=== PATIENT | male | born 1960 | race Caucasian/White ===

== ENCOUNTER 2017-06-03 21:13 | Emergency (ER) | payer OTHER ==
[2016-05-07 15:40] VITALS: Ht 185.4 cm; Wt 114.9 kg
[~2017-06-03] VITALS: Ht 185.4 cm; Wt 114.9 kg
[~2017-06-03 21:13] MED LIST: AMOX500T10 PO; CLAR-1 PO; IRON1TAB34 PO; PANT40TA65 PO; SUCR1TAB51 PO; SUCR1TAB85 PO
[2017-06-03 21:21] VITALS: BP 156/100
[2017-06-03] MEDS ORDERED: FAMO20TA28 PO (21:21)
--- NOTE | 2017-06-03 21:32 | ER Report ---
History and Physical Time Seen By MD: 21:27 Hx. of Stated Complaint: CHEST PAIN, MIDDLE CHEST, UPPER ABDOMINAL PAIN SINCE 1700. HX BLEEDING STOMACH ULCERS HPI/ROS CHIEF COMPLAINT: Chest pain, epigastric pain HISTORY OF PRESENT ILLNESS: 57-year-old male with a history of GERD and recent endoscopy. Patient developed sharp intermittent crampy chest pains in his epigastrium radiating to his chest. She denies nausea, diaphoresis or shortness of breath. Patient denies cardiac history. Patient notes no recent illness. He denies alcohol, caffeine or spicy food. Patient notes no alleviating or exacerbating factors. Patient's been taking some NSAIDs for sprain knee from skiing over the last 3 weeks. Patient was admitted back in early March with a upper GI bleed. He was found to have 2 large gastric ulcers. On endoscopy. REVIEW OF SYSTEMS: Respiratory: No cough, no dyspnea. Cardiovascular: No chest pain, no palpitations. Gastrointestinal: As above Musculoskeletal: No back pain. Allergies: Coded Allergies: No Known Drug Allergies (Unverified , 06/03/17) Home Meds Active Scripts Tramadol Hcl (TRAMADOL HCL) 50 Mg Tablet, 1 TAB PO Q6H Y for PAIN, #20 MG TAKE ONE TO TWO TABLETS BY MOUTH EVERY FOUR TO SIX HOURS NEEDED Prov:DOLLY RICO DO 06/03/17 Reported Medications Famotidine (PEPCID) 20 Mg Tablet, 20 MG PO QDAY, #10 TAB 06/03/17 Discontinued Reported Medications Iron Ag,Ps/C/Fa6/B12/Zn/SA/Sto (Niferex Tablet) 150MG-60-1 Tablet, 150 MCG PO BID, #60 0 Refills 03/31/17 Discontinued Scripts Sucralfate (CARAFATE) 1 Gm Tablet, 1 GM PO QID, #30 TAB Prov:STORM COATES MD 03/31/17 Pantoprazole Sodium (PANTOPRAZOLE SODIUM) 40 Mg Tablet.dr, 40 MG PO QDAY, #60 TAB.SR 5 Refills Prov:STORM COATES MD 03/31/17 Reviewed Nurses Notes: Yes Old Medical Records Reviewed: Yes Hx Smoking: No Smoking Status: Never Smoker Exposure to Second Hand Smoke?: No Hx Substance Use Disorder: No Hx Alcohol Use: Yes (OCC) Constitutional Vital Sign - Last 24 Hours 06/03/17 21:21 Pulse 97 Resp 20 B/P (MAP) 156/100 Pulse Ox 94 O2 Delivery Room Air Physical Exam Vital signs stable, afebrile, pulse ox normal General Appearance: The patient is alert, has no immediate need for airway protection and no current signs of toxicity. Mild distress, anxious-appearing HEENT: Pupils equal and round no injection. Oropharynx without redness or exudate, mucous members are Respiratory: Chest is non tender, lungs are clear to auscultation. No chest wall tenderness Cardiac: regular rate and rhythm Gastrointestinal: Abdomen is soft and non tender, no masses, bowel sounds normal. Musculoskeletal: Neck: Neck is supple and non tender. Extremities have full range of motion and are non tender. Skin: No rashes or lesions. DIFFERENTIAL DIAGNOSIS: After history and physical exam differential diagnosis was considered for abdominal pain including but not limited to appendicitis, cholecystitis, gastritis and urinary tract infection. Additionally,chest pain including but not limited to myocardial ischemia, pericarditis pulmonary embolus , chest wall pain, pleural inflammation and pulmonary infectious causes. Medical Decision Making Data Points Result Diagram: 06/03/17213406/03/172134 Laboratory Hematology Test 06/03/17 21:35 06/03/17 22:05 Red Blood Count 5.37 M/uL (4.00-5.60) Mean Corpuscular Volume 74.0 fL (80.0-96.0) Mean Corpuscular Hemoglobin 23.7 pg (26.0-33.0) Mean Corpuscular Hemoglobin Concent 32.0 g/dL (32.0-36.0) Red Cell Distribution Width 24.9 % (11.5-14.5) Mean Platelet Volume 9.1 fL (7.2-11.1) Neutrophils (%) (Auto) 79.2 % (39.4-72.5) Lymphocytes (%) (Auto) 11.9 % (17.6-49.6) Monocytes (%) (Auto) 6.3 % (4.1-12.4) Eosinophils (%) (Auto) 1.6 % (0.4-6.7) Basophils (%) (Auto) 1.0 % (0.3-1.4) Nucleated RBC Relative Count (auto) 0.0 /100WBC Neutrophils # (Auto) 11.1 K/uL (2.0-7.4) Lymphocytes # (Auto) 1.7 K/uL (1.3-3.6) Monocytes # (Auto) 0.9 K/uL (0.3-1.0) Eosinophils # (Auto) 0.2 K/uL (0.0-0.5) Basophils # (Auto) 0.1 K/uL (0.0-0.1) Nucleated RBC Absolute Count (auto) 0.00 K/uL Peripheral Blood Smear Yes Y/N Prothrombin Time 12.8 seconds (12.0-14.4) Prothromb Time International Ratio 0.96 Activated Partial Thromboplast Time 30 seconds (23-35) Sodium Level 140 mmol/L (137-145) Potassium Level 4.0 mmol/L (3.5-5.0) Chloride Level 106 mmol/L (98-107) Carbon Dioxide Level 23 mmol/L (22-30) Blood Urea Nitrogen 16 mg/dl (9-21) Creatinine 1.10 mg/dl (0.66-1.25) Glomerular Filtration Rate Calc > 60.0 Random Glucose 90 mg/dl (75-110) Calcium Level 8.7 mg/dl (8.4-10.2) Total Bilirubin 0.3 mg/dl (0.2-1.3) Aspartate Amino Transf (AST/SGOT) 21 U/L (0-35) Alanine Aminotransferase (ALT/SGPT) 28 U/L (0-56) Alkaline Phosphatase 88 U/L (0-126) Troponin I < 0.012 ng/ml C-Reactive Protein 2.7 mg/dl (<1.0) Total Protein 7.2 gm/dl (6.3-8.2) Albumin 3.9 g/dl (3.5-5.0) Amylase Level 112 U/L (0-110) Lipase 125 U/L (23-300) Urine Color Straw Urine Clarity Clear Urine pH 7.0 pH (4.8-9.5) Urine Specific [place] 1.011 Urine Protein Negative mg/dL (NEGATIVE) Urine Glucose (UA) Negative mg/dL (NEGATIVE) Urine Ketones Negative mg/dL (NEGATIVE) Urine Blood Negative (NEGATIVE) Urine Nitrite Negative (NEGATIVE) Urine Bilirubin Negative (NEGATIVE) Urine Urobilinogen Negative mg/dL (0.2-1.9) Urine Leukocyte Esterase Negative (NEGATIVE) Urine RBC None /HPF (0-2/HPF) Urine WBC <1 /HPF (0-5/HPF) Urine Squamous Epithelial Cells None /LPF (</=FEW) Urine Bacteria Negative /HPF (NONE-FEW) Urine Mucus None /HPF (NONE-FEW) Chemistry Test 06/03/17 21:35 06/03/17 22:05 White Blood Count 14.0 k/uL (4.5-11.0) Red Blood Count 5.37 M/uL (4.00-5.60) Hemoglobin 12.7 g/dL (14.0-18.0) Hematocrit 39.8 % (42.0-52.0) Mean Corpuscular Volume 74.0 fL (80.0-96.0) Mean Corpuscular Hemoglobin 23.7 pg (26.0-33.0) Mean Corpuscular Hemoglobin Concent 32.0 g/dL (32.0-36.0) Red Cell Distribution Width 24.9 % (11.5-14.5) Platelet Count 290 K/uL (150-450) Mean Platelet Volume 9.1 fL (7.2-11.1) Neutrophils (%) (Auto) 79.2 % (39.4-72.5) Lymphocytes (%) (Auto) 11.9 % (17.6-49.6) Monocytes (%) (Auto) 6.3 % (4.1-12.4) Eosinophils (%) (Auto) 1.6 % (0.4-6.7) Basophils (%) (Auto) 1.0 % (0.3-1.4) Nucleated RBC Relative Count (auto) 0.0 /100WBC Neutrophils # (Auto) 11.1 K/uL (2.0-7.4) Lymphocytes # (Auto) 1.7 K/uL (1.3-3.6) Monocytes # (Auto) 0.9 K/uL (0.3-1.0) Eosinophils # (Auto) 0.2 K/uL (0.0-0.5) Basophils # (Auto) 0.1 K/uL (0.0-0.1) Nucleated RBC Absolute Count (auto) 0.00 K/uL Peripheral Blood Smear Yes Y/N Prothrombin Time 12.8 seconds (12.0-14.4) Prothromb Time International Ratio 0.96 Activated Partial Thromboplast Time 30 seconds (23-35) Glomerular Filtration Rate Calc > 60.0 Calcium Level 8.7 mg/dl (8.4-10.2) Total Bilirubin 0.3 mg/dl (0.2-1.3) Aspartate Amino Transf (AST/SGOT) 21 U/L (0-35) Alanine Aminotransferase (ALT/SGPT) 28 U/L (0-56) Alkaline Phosphatase 88 U/L (0-126) Troponin I < 0.012 ng/ml C-Reactive Protein 2.7 mg/dl (<1.0) Total Protein 7.2 gm/dl (6.3-8.2) Albumin 3.9 g/dl (3.5-5.0) Amylase Level 112 U/L (0-110) Lipase 125 U/L (23-300) Urine Color Straw Urine Clarity Clear Urine pH 7.0 pH (4.8-9.5) Urine Specific [place] 1.011 Urine Protein Negative mg/dL (NEGATIVE) Urine Glucose (UA) Negative mg/dL (NEGATIVE) Urine Ketones Negative mg/dL (NEGATIVE) Urine Blood Negative (NEGATIVE) Urine Nitrite Negative (NEGATIVE) Urine Bilirubin Negative (NEGATIVE) Urine Urobilinogen Negative mg/dL (0.2-1.9) Urine Leukocyte Esterase Negative (NEGATIVE) Urine RBC None /HPF (0-2/HPF) Urine WBC <1 /HPF (0-5/HPF) Urine Squamous Epithelial Cells None /LPF (</=FEW) Urine Bacteria Negative /HPF (NONE-FEW) Urine Mucus None /HPF (NONE-FEW) Coagulation Test 06/03/17 21:35 Prothrombin Time 12.8 seconds Prothromb Time International Ratio 0.96 Activated Partial Thromboplast Time 30 seconds Urinalysis Test 06/03/17 22:05 Urine Color Straw Urine Clarity Clear Urine pH 7.0 pH (4.8-9.5) Urine Specific [place] 1.011 Urine Protein Negative mg/dL (NEGATIVE) Urine Glucose (UA) Negative mg/dL (NEGATIVE) Urine Ketones Negative mg/dL (NEGATIVE) Urine Blood Negative (NEGATIVE) Urine Nitrite Negative (NEGATIVE) Urine Bilirubin Negative (NEGATIVE) Urine Urobilinogen Negative mg/dL (0.2-1.9) Urine Leukocyte Esterase Negative (NEGATIVE) Urine RBC None /HPF (0-2/HPF) Urine WBC <1 /HPF (0-5/HPF) Urine Squamous Epithelial Cells None /LPF (</=FEW) Urine Bacteria Negative /HPF (NONE-FEW) Urine Mucus None /HPF (NONE-FEW) EKG/Imaging EKG Interpretation 12 lead EK Rhythm: normal sinus rhythm [place]: normal QRS: normal ST segments: normal, no evidence of ischemia or dysrhythmia, left anterior fascicular block noted Imaging X-ray: Two-view chest x-ray was obtained. I viewed the images myself on the PACS system. My interpretation of the images is: No infiltrate, no effusion, normal mediastinum. The radiologist interpretation had no clinically significant variation from this interpretation. ED Course/Re-evaluation ED Course Patient was admitted to an examination room. H&P was done. The differential diagnoses was considered. On clinical examination. Patient's had symptoms for several hours. EKG is performed. On arrival unremarkable. Diagnostic studies are sent off. Patient's treated with a GI cocktail. He is offered stronger pain medication but declined. His troponin is unremarkable. Patient works some improvement in the GI cocktail. He is advised to resume taking Pepcid 20 mg by mouth twice a day. Patient states with a proton pump inhibitor that was prescribed. He developed mouth sores. Patient referred to Dr. Toshia ORTIZ. Information was provided for him to follow-up. Patient's also advised to follow -up with his primary care or Dr. Coates who performed his endoscopy. Patient was given a prescription for tramadol for pain relief. Decision to Disposition Date: Jun 03, 2017 Decision to Disposition Time: 22:20 Depart Departure Latest Vital Signs Vital Signs Date Time Temp Pulse Resp B/P (MAP) Pulse Ox O2 Delivery O2 Flow Rate FiO2 06/03/17 21:21 97 20 156/100 94 Room Air Impression: Primary Impression: Epigastric pain Additional Impression: History of stomach ulcers Condition: Improved Disposition: HOME OR SELF-CARE Referrals: ELIZABETH PÉREZ MD, FARRUKH MD New Scripts Tramadol Hcl (TRAMADOL HCL) 50 Mg Tablet 1 TAB PO Q6H Y for PAIN, #20 MG TAKE ONE TO TWO TABLETS BY MOUTH EVERY FOUR TO SIX HOURS NEEDED Prov: DOLLY RICO DO 06/03/17 Patient Instructions: Epigastric Pain (ED) Additional Instructions: Continue Pepcid 20 mg twice daily until follow-up Follow-up with Dr. Pope GI specialist information was provided for his clinic in [facility] Problem Qualifiers DOLLY RICO DO Jun 03, 2017 21:32
[2017-06-03] MEDS ORDERED: LIDOCAINE 2% VISC SLN 15ML UDC PO ONE (21:35)
[2017-06-03] MEDS ORDERED: MAG HYD/AL HYD/SIMETH 30ML UDC PO ONE (21:35)
--- NOTE | 2017-06-03 21:35 | EKG ---
[place] [facility] [place]IENT NAME: DOMINICK ARIZMENDI : [id number] MR: [id number] V: [id number] EXAM DATE: ORDERING PHYSICIAN: ODLLY RICO TECHNOLOGIST: AMAN Kidd Reason : CARDIAC Blood Pressure : / mmHG Vent. Rate : 098 BPM Atrial Rate : 098 BPM P-R Int : 162 ms QRS Dur : 084 ms QT Int : 340 ms P-R-T Axes : 040 -48 051 degrees QTc Int : 434 ms Normal sinus rhythm R wave progression consistent with old ant/sep DE vs lead placement When compared with ECG of 13-JUL-2016 00:30, Now with poor R wave progression Confirmed by BEKA MCBRIDE ([id number]) on 06/03/2017 11:10:29 PM Referred By: Confirmed By:BEKA MCBRIDE
[2017-06-03 21:46] LABS: PLATELET COUNT, AUTOMATED 290 K/uL (150-450)
[2017-06-03 21:58] LABS: INR 0.96
[2017-06-03] MEDS ORDERED: traMADol 50 MG TAB TH 2 TAB/BOTTLE PO ONE (22:20)
[2017-06-03] MEDS ORDERED: TRAM-420 PO (22:23)
== END 2017-06-03 22:57 | disposition home or self-care (01) ==
LOC: ER 21:31
DX: R10.13 Epigastric pain (principal); Z87.11 Personal history of peptic ulcer disease
CPT/HCPCS: 81001; 82040; 82150; 82247; 82310; 82374; 82435; 82565; 82947; 83690; 84075; 84132; 84155; 84295; 84450; 84460; 84484; 84520; 85025; 85610; 85730; 86140; 93005; 99282

== ENCOUNTER → 2017-07-17 | Outpatient (CLI) | payer OTHER ==
[2016-05-07 15:40] VITALS: BMI 36.3
[~2017-07-17] MED LIST changes: +FAMO20TA28 PO; +TRAM-420 PO
[2017-07-17 16:34] LABS: PLATELET COUNT, AUTOMATED 331 K/uL (150-450)
== END ==
LOC: LAB 16:16
PROVIDERS: ATTEND Nurse Practitioner Family
DX: R10.13 Epigastric pain (principal); K25.4 Chronic or unspecified gastric ulcer with hemorrhage
CPT/HCPCS: 36415; 82040; 82247; 82310; 82374; 82435; 82565; 82941; 82947; 84075; 84132; 84155; 84295; 84450; 84460; 84520; 85025

== ENCOUNTER 2017-07-27 18:37 | Emergency (ER) | payer OTHER ==
[2016-05-07 15:40] VITALS: Wt 108.9 kg
[~2017-07-27 18:37] MED LIST changes: +DEXL30CA5 PO
--- NOTE | 2017-07-27 18:40 | ER Report ---
History and Physical Time Seen By MD: 18:38 Hx. of Stated Complaint: Palpitations (LIANNA LUDWIG) HPI/ROS Patient is a 57-year-old male history of atrial fibrillation and is currently on no medications for this is not on any oral anticoagulation and started having palpitations yesterday and did take a full aspirin this morning states some chest pressure with this in the last hour Remainder of the 14 system rev: Yes (LIANNA LUDWIG) Allergies: Coded Allergies: pantoprazole (Verified Allergy, Severe, oral swelling, 07/27/17) Home Meds Active Scripts Diltiazem Hcl (CARDIZEM CD) 240 Mg Cap.er.24h, 240 MG PO DAILY, #30 Prov:LIANNA LUDWIG 07/27/17 Reported Medications Dexlansoprazole (DEXILANT) 30 Mg Cap.mp, 30 MG PO QDAY 07/24/17 Discontinued Reported Medications Famotidine (PEPCID) 20 Mg Tablet, 20 MG PO QDAY, #10 TAB 06/03/17 Discontinued Scripts Tramadol Hcl (TRAMADOL HCL) 50 Mg Tablet, 1 TAB PO Q6H Y for PAIN, #20 MG TAKE ONE TO TWO TABLETS BY MOUTH EVERY FOUR TO SIX HOURS NEEDED Prov:DOLLY RICO DO 06/03/17 Past Medical/Surgical History History of A. fib, history of ulcers, history of kidney stones, (LIANNA LUDWIG) Reviewed Nurses Notes: Yes Old Medical Records Reviewed: Yes (LIANNA LUDWIG) Hx Smoking: No Smoking Status: Never Smoker Exposure to Second Hand Smoke?: No Hx Substance Use Disorder: No Hx Alcohol Use: Yes (OCC) (LIANNA LUDWIG) Family History of: HTN (LIANNA LUDWIG) Constitutional Vital Sign - Last 24 Hours 07/27/17 07/27/17 07/27/17 07/27/17 18:42 18:43 18:44 18:52 Temp 97.5 Pulse 158 109 Resp 15 29 B/P (MAP) 130/71 (90) 138/105 (116) 138/105 Pulse Ox 97 97 O2 Delivery Room Air 07/27/17 07/27/17 07/27/17 07/27/17 19:00 19:07 19:22 19:30 Pulse 89 92 Resp 16 17 B/P (MAP) 127/84 (98) 115/81 (92) Pulse Ox 96 94 07/27/17 07/27/17 07/27/17 07/27/17 19:37 19:52 20:00 20:07 Pulse 94 95 99 Resp 18 15 11 B/P (MAP) 128/79 (95) Pulse Ox 93 93 92 07/27/17 07/27/17 07/27/17 07/27/17 20:22 20:30 20:35 20:50 Pulse 96 89 88 Resp 29 13 20 B/P (MAP) 122/77 (92) Pulse Ox 94 98 95 07/27/17 07/27/17 07/27/17 07/27/17 21:00 21:05 21:20 21:30 Pulse 86 93 Resp 22 15 B/P (MAP) 134/92 (106) 139/92 (108) Pulse Ox 95 94 07/27/17 07/27/17 07/27/17 07/27/17 21:35 21:50 22:00 22:05 Pulse 89 90 91 Resp 15 17 13 B/P (MAP) 135/84 (101) Pulse Ox 94 94 96 07/27/17 07/27/17 07/27/17 07/27/17 22:20 22:30 22:35 22:50 Pulse 89 88 90 Resp 15 16 16 B/P (MAP) 132/89 (103) Pulse Ox 92 94 94 07/27/17 07/27/17 23:00 23:05 Pulse 87 Resp 15 B/P (MAP) 118/85 (96) Pulse Ox 94 (JOANNA ISBELL MD) Physical Exam CHIEF COMPLAINT: Palpitations HISTORY OF PRESENT ILLNESS: pt is a 57 year old male alert anxious fast heart rate palpitations since yesterday . mid sternal chest pressure x 1 hour REVIEW OF SYSTEMS: Constitutional: No fever, no chills. Eyes: No discharge. ENT: No sore throat. Cardiovascular: No chest pain, palpitations. Respiratory: No cough, no shortness of breath. Gastrointestinal: No abdominal pain, no vomiting. Genitourinary: No hematuria. Musculoskeletal: No back pain. Skin: No rashes. Neurological: No headache. (LIANNA LUDWIG) Medical Decision Making Data Points Result Diagram: 07/27/17184707/27/178 Laboratory Hematology Test 07/27/17 18:48 07/27/17 20:40 Red Blood Count 6.01 M/uL (4.00-5.60) Mean Corpuscular Volume 72.3 fL (80.0-96.0) Mean Corpuscular Hemoglobin 23.3 pg (26.0-33.0) Mean Corpuscular Hemoglobin Concent 32.3 g/dL (32.0-36.0) Red Cell Distribution Width 16.8 % (11.5-14.5) Mean Platelet Volume 8.8 fL (7.2-11.1) Neutrophils (%) (Auto) 65.6 % (39.4-72.5) Lymphocytes (%) (Auto) 23.8 % (17.6-49.6) Monocytes (%) (Auto) 8.5 % (4.1-12.4) Eosinophils (%) (Auto) 1.4 % (0.4-6.7) Basophils (%) (Auto) 0.7 % (0.3-1.4) Nucleated RBC Relative Count (auto) 0.1 /100WBC Neutrophils # (Auto) 8.9 K/uL (2.0-7.4) Lymphocytes # (Auto) 3.2 K/uL (1.3-3.6) Monocytes # (Auto) 1.2 K/uL (0.3-1.0) Eosinophils # (Auto) 0.2 K/uL (0.0-0.5) Basophils # (Auto) 0.1 K/uL (0.0-0.1) Nucleated RBC Absolute Count (auto) 0.01 K/uL Prothrombin Time 12.8 seconds (12.0-14.4) Prothromb Time International Ratio 0.97 Activated Partial Thromboplast Time 29 seconds (23-35) D-Dimer Quantitative (PE/DVT) < 0.27 ug/ml (0-0.50) Sodium Level 144 mmol/L (137-145) Potassium Level 4.1 mmol/L (3.5-5.0) Chloride Level 105 mmol/L (98-107) Carbon Dioxide Level 26 mmol/L (22-30) Blood Urea Nitrogen 14 mg/dl (9-21) Creatinine 1.10 mg/dl (0.66-1.25) Glomerular Filtration Rate Calc > 60.0 Random Glucose 97 mg/dl (75-110) Calcium Level 9.0 mg/dl (8.4-10.2) Total Bilirubin 0.4 mg/dl (0.2-1.3) Aspartate Amino Transf (AST/SGOT) 24 U/L (0-35) Alanine Aminotransferase (ALT/SGPT) 20 U/L (0-56) Alkaline Phosphatase 87 U/L (0-126) B-Type Natriuretic Peptide 549 pg/ml (0-100) Total Protein 7.4 gm/dl (6.3-8.2) Albumin 4.0 g/dl (3.5-5.0) Troponin I 0.053 ng/ml Chemistry Test 07/27/17 18:48 07/27/17 20:40 White Blood Count 13.6 k/uL (4.5-11.0) Red Blood Count 6.01 M/uL (4.00-5.60) Hemoglobin 14.0 g/dL (14.0-18.0) Hematocrit 43.4 % (42.0-52.0) Mean Corpuscular Volume 72.3 fL (80.0-96.0) Mean Corpuscular Hemoglobin 23.3 pg (26.0-33.0) Mean Corpuscular Hemoglobin Concent 32.3 g/dL (32.0-36.0) Red Cell Distribution Width 16.8 % (11.5-14.5) Platelet Count 358 K/uL (150-450) Mean Platelet Volume 8.8 fL (7.2-11.1) Neutrophils (%) (Auto) 65.6 % (39.4-72.5) Lymphocytes (%) (Auto) 23.8 % (17.6-49.6) Monocytes (%) (Auto) 8.5 % (4.1-12.4) Eosinophils (%) (Auto) 1.4 % (0.4-6.7) Basophils (%) (Auto) 0.7 % (0.3-1.4) Nucleated RBC Relative Count (auto) 0.1 /100WBC Neutrophils # (Auto) 8.9 K/uL (2.0-7.4) Lymphocytes # (Auto) 3.2 K/uL (1.3-3.6) Monocytes # (Auto) 1.2 K/uL (0.3-1.0) Eosinophils # (Auto) 0.2 K/uL (0.0-0.5) Basophils # (Auto) 0.1 K/uL (0.0-0.1) Nucleated RBC Absolute Count (auto) 0.01 K/uL Prothrombin Time 12.8 seconds (12.0-14.4) Prothromb Time International Ratio 0.97 Activated Partial Thromboplast Time 29 seconds (23-35) D-Dimer Quantitative (PE/DVT) < 0.27 ug/ml (0-0.50) Glomerular Filtration Rate Calc > 60.0 Calcium Level 9.0 mg/dl (8.4-10.2) Total Bilirubin 0.4 mg/dl (0.2-1.3) Aspartate Amino Transf (AST/SGOT) 24 U/L (0-35) Alanine Aminotransferase (ALT/SGPT) 20 U/L (0-56) Alkaline Phosphatase 87 U/L (0-126) B-Type Natriuretic Peptide 549 pg/ml (0-100) Total Protein 7.4 gm/dl (6.3-8.2) Albumin 4.0 g/dl (3.5-5.0) Troponin I 0.053 ng/ml Coagulation Test 07/27/17 18:48 Prothrombin Time 12.8 seconds Prothromb Time International Ratio 0.97 Activated Partial Thromboplast Time 29 seconds D-Dimer Quantitative (PE/DVT) < 0.27 ug/ml (JOANNA ISBELL MD) EKG/Imaging EKG Interpretation EKG at 1840 A. fib with RVR ventricular rate 160. 2nd EKG 1935 normal sinus rhythm with ventricular rate 95 QTCs 429 Imaging FACILITY: [facility] - [place] PATIENT NAME: Yoel Tee : 1960 MR: [id number] V: [id number] EXAM DATE: ORDERING PHYSICIAN: LIANNA LUDWIG TECHNOLOGIST: Location: [facility] Patient: Yoel Tee : 1960 Visit/Account:[id number] Date of Sevice: 07/27/2017 CHEST SINGLE AP Indication: Chest pain.. Comparison: 07/13/2016. Findings: Cardiomediastinal silhouette and pulmonary vessels within normal limits. There is no focal infiltrate or lobar consolidation. No pneumothorax or pleural effusion. No nodule. Scar seen in the right midlung. Upper abdomen is unremarkable. No acute bony abnormality. IMPRESSION: 1. No acute cardiopulmonary process. Report Dictated By: Yoel Quintero at 07/27/2017 7:37 PM Report E-Signed By: Yoel Quintero at 07/27/2017 7:38 PM WSN:[id number] (LIANNA LUDWIG) ED Course/Re-evaluation ED Course Patient converted from A. fib with RVR with 20 of Cardizem and a drip at 5 mg an hour him I did talk to hospitalist Dr. Arguello we repeated troponin after 2 hours a 2nd troponin was 0.053 initial one was 0.055 he asked me to start Cardizem 240 mg daily but him on a full aspirin and schedule an outpatient echocardiogram will be sent to cardiology for follow-up and follow up closely with his primary care physician Re-evaluation After conversion patient has remained in sinus rhythm rate between 80 and 86 chest pain is dissipated when rate was controlled Decision to Disposition Date: Jul 27, 2017 Decision to Disposition Time: 21:30 (LIANNA LUDWIG) ED Course 07/27/2017 9:53:31 pm assumed care of the patient at this time plan is to give 2040 mg of Cardizem orally which was done approximately this time. We will observe the patient in the emergency department for 2 hours and if he remains in sinus rhythm we'll discharge home with a prescription to take Cardizem 240 mg daily for follow-up with cardiology and will be scheduled for an outpatient echocardiogram (JOANNA ISBELL MD) Depart Departure Latest Vital Signs Vital Signs Date Time Temp Pulse Resp B/P (MAP) Pulse Ox O2 Delivery O2 Flow Rate FiO2 07/27/17 23:05 87 15 94 07/27/17 23:00 118/85 (96) 07/27/17 18:44 97.5 Room Air (JOANNA ISBELL MD) Impression: Primary Impression: Atrial fibrillation with rapid ventricular response Additional Impression: Chest discomfort Condition: Improved Disposition: HOME OR SELF-CARE Referrals: CARDIOLOGY 2 Days [facility] 1 Day New Scripts Diltiazem Hcl (CARDIZEM CD) 240 Mg Cap.er.24h 240 MG PO DAILY, #30 Prov: LIANNA LUDWIG 07/27/17 Patient Instructions: A-fib (Atrial Fibrillation) (ED) Additional Instructions: follow up with cardiology call [phone] for appointment , see your doctor in one day, echocardiogram as an outpatient , take Cardizem 240 mg CD one pill daily take aspirin 325 mg by mouth daily [employer] consult with MD: Verbally (discussed w dalia isbell, he will monitir x 2 hours then release if there is no rhythm change ) (LIANNA LUDWIG) Problem Qualifiers LIANNA LUDWIG Jul 27, 2017 18:40 JOANNA ISBELL MD Jul 27, 2017 21:54
[2017-07-27] MEDS ORDERED: NS(*) 0.9% 1000 ML BAG 1,000 ML IV ONE (18:47)
--- NOTE | 2017-07-27 18:48 | EKG ---
FACILITY: [facility] - [place] PATIENT NAME: DOMINICK ARIZMENDI : [id number] MR: [id number] V: [id number] EXAM DATE: ORDERING PHYSICIAN: LIANNA LUDWIG TECHNOLOGIST: CARY Kidd Reason : TACHY Blood Pressure : / mmHG Vent. Rate : 160 BPM Atrial Rate : 125 BPM P-R Int : 000 ms QRS Dur : 082 ms QT Int : 292 ms P-R-T Axes : 000 -36 085 degrees QTc Int : 476 ms Atrial fibrillation with rapid ventricular response Left axis deviation Nonspecific ST abnormality , probably digitalis effect Abnormal ECG When compared with ECG of 03-JUN-2017 21:16, Atrial fibrillation has replaced Sinus rhythm Vent. rate has increased BY 62 BPM Confirmed by TAMMI ROBISON ([id number]) on 07/28/2017 7:08:35 AM Referred By: CHRISTOPHER Confirmed By:TAMMI ROBISON
[2017-07-27] MEDS ORDERED: ASPIRIN 81 MG CHEW PO ONE (18:50)
[2017-07-27] MEDS ORDERED: DILTIAZEM 5 MG/ML 5ML IVPUSH IVP ONE (18:50)
[2017-07-27] MEDS ORDERED: DILTIAZEM HCL* 100 MG ADDVIAL 100 MG in NS(*) 0.9% 100 ML ADDVANT BAG 100 ML IV SCH (18:55)
[2017-07-27 19:07] LABS: PLATELET COUNT, AUTOMATED 358 K/uL (150-450)
[2017-07-27 19:12] LABS: INR 0.97
[2017-07-27] MEDS ORDERED: MORPHINE 2 MG/ML SYR IVP ONE (19:30)
--- NOTE | 2017-07-27 19:43 | RADIOLOGY IMAGING REPORT ---
FACILITY: [facility] - [place] PATIENT NAME: Yoel Tee : 1960 MR: [id number] V: [id number] EXAM DATE: ORDERING PHYSICIAN: LIANNA LUDWIG TECHNOLOGIST: Location: [facility] - [place] Patient: Yoel Tee : 1960 Visit/Account:[id number] Date of Sevice: 07/27/2017 CHEST SINGLE AP Indication: Chest pain.. Comparison: 07/13/2016. Findings: Cardiomediastinal silhouette and pulmonary vessels within normal limits. There is no focal infiltrate or lobar consolidation. No pneumothorax or pleural effusion. No nodule. Scar seen in the right midlung. Upper abdomen is unremarkable. No acute bony abnormality. IMPRESSION: 1. No acute cardiopulmonary process. Report Dictated By: Yoel Quintero at 07/27/2017 7:37 PM Report E-Signed By: Yoel Quintero at 07/27/2017 7:38 PM WSN:[id number]
--- NOTE | 2017-07-27 20:05 | EKG ---
[place] [facility] [place]: DOMINICK ARIZMENDI : [id number] MR: [id number] V: [id number] EXAM DATE: ORDERING PHYSICIAN: LIANNA LUDWIG TECHNOLOGIST: AMAN Kidd Reason : REPEAT EKG Blood Pressure : / mmHG Vent. Rate : 095 BPM Atrial Rate : 095 BPM P-R Int : 174 ms QRS Dur : 082 ms QT Int : 342 ms P-R-T Axes : 040 -32 040 degrees QTc Int : 429 ms Normal sinus rhythm Left axis deviation Abnormal ECG When compared with ECG of 27-JUL-2017 18:40, Sinus rhythm has replaced Atrial fibrillation Vent. rate has decreased BY 65 BPM Confirmed by TAMMI ROBISON ([id number]) on 07/28/2017 7:08:40 AM Referred By: Confirmed By:TAMMI ROBISON
[2017-07-27] MEDS ORDERED: DILTIAZEM CD 120 MG CAPCR PO SCH (21:25)
[2017-07-27] MEDS ORDERED: DILT240C PO (21:29)
[2017-07-28] VITALS: BP 130/89
== END 2017-07-28 00:11 | disposition home or self-care (01) ==
LOC: ER 18:56
DX: I48.0 Paroxysmal atrial fibrillation (principal); R07.89 Other chest pain; R94.31 Abnormal electrocardiogram [ECG] [EKG]
CPT/HCPCS: 71045; 83880; 84443; 84484; 85025; 85379; 85610; 85730; 93005; 96361; 96365; 96366; 96375; 99284; J3490; J7030; J7050; 82040; 82247; 82310; 82374; 82435; 82565; 82947; 84075; 84132; 84155; 84295; 84450; 84460; 84520

== ENCOUNTER → 2017-08-18 | Outpatient (CLI) | payer OTHER ==
[2016-05-07 15:40] VITALS: BMI 36.3
[~2017-08-18] MED LIST changes: +DILT240C PO
== END ==
LOC: LAB 07:19
PROVIDERS: ATTEND Internal Medicine Gastroenterology
DX: R10.13 Epigastric pain (principal); R07.89 Other chest pain; K25.9 Gastric ulcer, unspecified as acute or chronic, without hemorrhage or perforation; R14.0 Abdominal distension (gaseous); K62.5 Hemorrhage of anus and rectum
CPT/HCPCS: 36415; 82941

== ENCOUNTER 2017-09-17 00:28 | Observation (INO) | payer OTHER ==
[~2017-09-17] VITALS: Ht 188 cm; Wt 106.7 kg
[2017-09-17] VITALS (16 sets, daily range): BP systolic 135–165; BP diastolic 81–107
[~2017-09-17 00:28] MED LIST changes: +FAMOTIDINE 20 MG TAB PO ONE; +LIDOCAINE/SOD BICARB 8.4% SYR ID ONE; +MIDAZOLAM 2 MG/2 ML VIAL IVP PRN; +NORMOSOL R SOLN(*) 1000 ML BAG 1,000 ML IV PRN; +ceFAZolin(*) 2GM/D5W 50ML 50 ML IVPB ONE
[2017-09-17] MEDS ORDERED: MIDAZOLAM 2 MG/2 ML VIAL IVP PRN (10:25)
[2017-09-17] MEDS ORDERED: ceFAZolin(*) 2GM/D5W 50ML 50 ML IVPB ONE (10:25)
[2017-09-17] MEDS ORDERED: LIDOCAINE/SOD BICARB 8.4% SYR ID ONE (10:25)
[2017-09-17] MEDS ORDERED: NORMOSOL R SOLN(*) 1000 ML BAG 1,000 ML IV PRN (10:25)
[2017-09-17 11:25] LABS: PLATELET COUNT, AUTOMATED 304 K/uL (150-450)
[2017-09-17] MEDS ORDERED: PROPOFOL EMUL(*) 10MG/ML 20 ML 40 ML ONE (11:38)
[2017-09-17] MEDS ORDERED: HEPARIN SOD LCK FLSH 100 UN/ML ONE (14:24)
[2017-09-17] MEDS ORDERED: ROPIVACAINE 0.5% 20 ML VIAL ONE (14:25)
[2017-09-17] MEDS ORDERED: NS(*) 0.9% 10 ML VIAL 20 ML ONE (14:25)
[2017-09-17] MEDS ORDERED: NS(*) 0.9% 1000 ML BAG 1,000 ML IV PRN (15:57)
[2017-09-17] MEDS ORDERED: FLUSH 10 ML SYR IVP PRN (16:00)
[2017-09-17] MEDS ORDERED: ONDANSETRON 4 MG/2 ML VIAL IVP PRN (16:00)
[2017-09-17] MEDS ORDERED: MORPHINE 2 MG/ML SYR IVP PRN (16:00)
--- NOTE | 2017-09-17 16:07 | Post Operative Progress Note ---
Post Operative Progress Note Date: September 17, 2017 Time: 16:00 Surgeon: Adin Dictation number: [id number] Anesthesia: LMA by Dr. Lehman Pre-Op Diagnosis: Gastric Lymphoma Post-Op Diagnosis: MATHEUS Findings: None Procedure(s): 1) Bone marrow aspiration and biopsy 2) Right IJ Power port placement Specimen Removed:(May be N/A): 1) bone marrow aspirate 2) cortical bone cores x2 Complications: None Fluids: See anesthesia record Estimated Blood Loss: Minimal Date OP Note Dictated: September 17, 2017 Time OP Note Dictated: 16:01 TAMMI GONG MD September 17, 2017 16:07
--- NOTE | 2017-09-17 16:30 | RADIOLOGY IMAGING REPORT ---
FACILITY: [facility] PATIENT NAME: DOMINICK ARIZMENDI : [id number] MR: [id number] V: [id number] EXAM DATE: ORDERING PHYSICIAN: TAMMI GONG TECHNOLOGIST: Tran Chicas EXAMINATION:TWO-DIMENSIONAL ECHOCARDIOGRAPH REASON:GASTRIC BCELL LYMPHOMA 2D Measurements (normal values in centimeters) LV endLV endRV endVent.LV PostAorticLeftPercent DiastolicSystolicDiastolicSeptumWallRootAtriumShortening (3.5-5.7)(0.9-2.6)(0.6-1.1)(0.6-1.1)(2.0-3.7)(1.9-4.0)(25-35%) [id number]% STROKE VOLUME: 67ml ESTIMATED EJECTION FRACTION:64-68% LEFT VENTRICLE: Ejection fraction 64%, normal chamber size & function, normal diastolic function. RIGHT VENTRICLE: Normal size & function. RIGHT ATRIUM: Normal size & function. LEFT ATRIUM: Normal size & function, no evidence of intra atrial shunting by Doppler. AORTIC VALVE: Trileaflet, heavily sclerosed & thickened leaflets but no significant stenosis or regurgitation. PULMONIC VALVE: Poorly visualized, trace insufficiency, no evidence of stenosis. MITRAL VALVE: Normal structure & function, no significant stenosis, trace regurgitation. TRICUSPID VALVE: Normal structure & function, trace regurgitation, no evidence of stenosis. RVSP difficult to assess due to insufficient regurgitant jet. AORTIC VALVE: PERICARDIUM: No evidence of effusion. EXTRACARDIAC SPACE: No evidence of pleural effusion. OVERALL IMPRESSION: 1. Ejection fraction 60-65%, normal size & function of the LV with no evidence of diastolic dysfunction. 2. Thickened aortic valve without significant stenosis or regurgitation, 3. No other dynamically significant valvular dysfunction. Dictated by: Jm Roland M.D. on 09/17/2017 at 12:02 Transcribed by: MOOKIE on 09/17/2017 at 13:42 Approved by: Jm Roland M.D. on 09/17/2017 at 16:28 [facility]
--- NOTE | 2017-09-17 16:59 | RADIOLOGY IMAGING REPORT ---
FACILITY: [facility] PATIENT NAME: Yoel Tee : 1960 MR: [id number] V: [id number] EXAM DATE: ORDERING PHYSICIAN: TAMMI GONG TECHNOLOGIST: Location: [facility] [place] Patient: Yoel Tee : 1960 Visit/Account:[id number] Date of Sevice: 09/17/2017 EXAMINATION: OR fluoroscopy films chest 2 views HISTORY: Power port placement. COMPARISON: Chest radiograph from 07/27/2017. FLUOROSCOPY TIME: 40 seconds. DOSE: DAP was 0.06728 mGy*m2. FINDINGS: 2 fluoroscopic images are obtained intraoperatively. These images are labeled right. The re is placement of a PowerPort in the right internal jugular vein. IMPRESSION: Right PowerPort placement in progress. Please see the performing physician's notes for full details. Report Dictated By: Becca Whitley MD at 09/17/2017 4:54 PM Report E-Signed By: Becca Whitley MD at 09/17/2017 4:56 PM WSN:[id number]
--- NOTE | 2017-09-17 17:09 | RADIOLOGY IMAGING REPORT ---
FACILITY: [facility] [place] PATIENT NAME: Yoel Tee : 1960 MR: [id number] V: [id number] EXAM DATE: ORDERING PHYSICIAN: TAMMI GONG TECHNOLOGIST: [facility] Patient: Yoel Tee : 1960 Visit/Account:[id number] Date of Sevice: 09/17/2017 EXAMINATION: Portable chest radiograph single view at 1606 hours HISTORY: Right IJ power port placement. COMPARISON: 07/27/2017. FINDINGS: A single portable AP view of the chest is obtained. Lines/tubes: There is new right IJ central venous port. Tip is well-positioned overlying the cavoat rial junction. Lungs/pleura: Minimal right perihilar scarring is unchanged. There is no focal consolidation or ple ural effusion. No pneumothorax. Heart: Negative. Mediastinum: Negative. Bony structures/body wall: Negative. IMPRESSION: 1. Well-positioned right IJ power port. No pneumothorax. 2. Minimal right perihilar scarring is unchanged. Report Dictated By: Becca Whitley MD at 09/17/2017 5:03 PM Report E-Signed By: Becca Whitley MD at 09/17/2017 5:05 PM WSN:[id number]
--- NOTE | 2017-09-17 20:32 | OPERATIVE REPORT 1 ---
EVENT DATE: September 17, 2017 SURGEON: Angus Oakley MD ANESTHESIOLOGIST: Ross Lehman MD ANESTHESIA: LMA. PREOPERATIVE DIAGNOSIS Gastric lymphoma. POSTOPERATIVE DIAGNOSIS Gastric lymphoma. PROCEDURES PERFORMED 1. Bone marrow aspiration and biopsy. 2. Right internal jugular vein PowerPort placement. COMPLICATIONS None. CONDITION Stable. BLOOD LOSS Minimal. INDICATIONS This is a 57-year-old gentleman who has been diagnosed with gastric lymphoma, and we have been asked to place a PowerPort to facilitate chemotherapy and to perform a bone marrow aspiration and biopsy for staging. DESCRIPTION OF PROCEDURE The patient was brought to the operating room and placed supine on the operating table. LMA anesthesia was administered, and he was placed in the left lateral decubitus position. The skin overlying his right posterior superior iliac spine was prepped and draped in a sterile fashion. Timeout was completed. I anesthetized the skin with 1% lidocaine plain as well as the periosteum. I made a small stab incision in the skin and then used the aspiration needle and inserted the bone marrow cavity and aspirated 20 mL of bone marrow into the heparinized syringe. I passed this directly to the engineering laboratory technician, who processed it and deemed it a good sample. The aspiration needle was removed, and the core needle was inserted, and two centimeter long cores were obtained of the cortical bone. These were passed to the engineering laboratory technician as well. Skin was cleaned and dried, and a Steri- Strip was applied over the stab incision, followed by a Band-Aid. The patient was then placed supine, and his right neck, shoulder, and chest were prepped and draped in a sterile fashion. A timeout was completed again, and he was placed in Trendelenburg. The ultrasound machine was used to identify the right internal jugular vein, and the access needle was inserted into the vein without problems, and the wire was threaded through the needle. The needle was then removed, and a C-arm fluoroscope was used to identify the wire in the SVC. I then anesthetized the skin in the neck and then the right infraclavicular skin and then made a stab incision where the wire entered the skin and then made a transverse incision in the infraclavicular skin. I then dissected through the dermis and subcutaneous fat and created a pocket caudad to the incision. I made sure this was hemostatic. I then dragged the catheter using the tunneler from the pocket up to the stab incision in the neck and then pulled the catheter through and then threaded the dilator and sheath over the wire, removed the dilator and the wire, and then threaded the catheter through the sheath and removed the sheath. I then used the C-arm fluoroscope to position the tip of the catheter in the SVC just above the right atrium. I cut the catheter to length, placed the port on the catheter, and locked it into place with a locking cup. I then sutured the port down with 3-0 nylon in the corners to the underlying muscle fascia. I then aspirated blood and flushed the port with 10 mL of normal saline. It aspirated and flushed with no problems. I then flushed the port with 5 mL of 100 units/mL of a heparinized saline, and it flushed with no problems. I then took more C-arm images, and the port was in good position as well as the tip, and there were no kinks or twists. I then closed the stab incision in the neck with a single 3-0 chromic suture. I then closed the skin at the port site with interrupted 3-0 Vicryl deep dermal sutures and 4-0 Monocryl running subcuticular sutures. Skin was cleaned and dried, and then I applied Steri-Strips over the incision. The patient was awakened and LMA removed. He was transported to the recovery room in stable condition having tolerated the procedure without any apparent problems. TISHA
[2017-09-17] MEDS ORDERED: FAMOTIDINE 20 MG TAB PO SCH (21:00)
[2017-09-17] MEDS ORDERED: DOCUSATE SODIUM 100 MG CAP PO SCH (21:00)
[2017-09-18] VITALS: BP 128/77
[2017-09-18 01:00] VITALS: BP 163/101
[2017-09-18 02:00] VITALS: BP 157/95
[2017-09-18 03:00] VITALS: BP 146/102
[2017-09-18 04:00] VITALS: BP 136/75
--- NOTE | 2017-09-18 06:19 | Short(Outpt) Discharge Summary ---
Discharge Summary Reason for Hosp/Final Diag: (1) Gastric lymphoma Status: Chronic Hospital Course & Plan: Pt has done well overnight. No issues. D/C to home this morning. Departure Discharge to: Home, Self Care Discharge Instructions Home Meds No Active Prescriptions or Reported Meds Diet: Regular Activity: As Tolerated Special Instructions: You may remove the band-aid from your lower back on 09/19/17, then you can shower. After showering, leave the incisions all open to air but leave the steristrips in place until they fall off on their own. Do not immerse the incisions for 2 weeks. Follow up with the cancer center in the next week or two. TAMMI GONG MD September 18, 2017 06:19
[2017-09-18 07:09] VITALS: BP 153/96
[2017-09-18 09:09] VITALS: Ht 188 cm; Wt 106.7 kg
== END 2017-09-18 07:40 | disposition home or self-care (01) ==
LOC: OR 00:28 → MED 16:42
PROVIDERS: ADMIT Surgery; ATTEND Surgery
DX: C85.99 Non-Hodgkin lymphoma, unspecified, extranodal and solid organ sites (principal); K21.9 Gastro-esophageal reflux disease without esophagitis; I48.2 Chronic atrial fibrillation; I10 Essential (primary) hypertension
CPT/HCPCS: 36415; 36561; 38222; 71045; 77001; 83880; 85025; 93306; C1788; G0378; J1642; J2704; J2795; J0690

== ENCOUNTER → 2017-10-02 | Outpatient (CLI) | payer OTHER ==
[2017-09-18 09:09] VITALS: BMI 30.2
[~2017-10-02] MED LIST changes: -FAMOTIDINE 20 MG TAB PO ONE; -LIDOCAINE/SOD BICARB 8.4% SYR ID ONE; -MIDAZOLAM 2 MG/2 ML VIAL IVP PRN; -NORMOSOL R SOLN(*) 1000 ML BAG 1,000 ML IV PRN; +POTA-28 PO; +PRED20TA6 PO; -ceFAZolin(*) 2GM/D5W 50ML 50 ML IVPB ONE
== END ==
LOC: SPU 15:51
PROVIDERS: ATTEND Internal Medicine Hematology
DX: C85.10 Unspecified B-cell lymphoma, unspecified site (principal)

== ENCOUNTER 2017-10-04 21:38 | Observation (INO) | payer OTHER ==
[~2017-10-04] VITALS: Ht 188 cm; Wt 109.5 kg
[~2017-10-04 21:38] MED LIST changes: -HYDR2TAB74 PO; -ONDA4TAB PO; -POTA-28 PO; -PRED20TA6 PO; -PROM-110 PO; -SUCR1ORA17 PO
[2017-10-04] MEDS ORDERED: NS(*) 0.9% 1000 ML BAG 1,000 ML IV ONE ×2 (21:49→21:55)
--- NOTE | 2017-10-04 21:54 | ER Report ---
History and Physical Time Seen By MD: 21:52 HPI/ROS CHIEF COMPLAINT: altered mental status and low blood pressure, abdominal pain HISTORY OF PRESENT ILLNESS: This is a 57 year old male. He called EMS because of abdominal pain and not feeling well. When EMS arrived, he was very pale, diaphoretic, and very dizzy/lightheaded. They noted low blood pressure on their evaluation. He has a history of a gastric lymphoma, with his first dose of chemotherapy this week. He has a history of gastric ulcers and GI bleeds with need for transfusion in the past as well. Initially was confused, but after 2 liters of normal saline and improvement of blood pressure was able to tell me that he has not had any blood in stools, melena. He has been urinating normally. He denies fevers or chills recently. Had been told his white blood cell count was decreased and was going to possibly get Neulasta or Neupogen, but had not had these yet. He is very weak and light headed with sitting or standing. He has diffuse abdominal pain. Allergies: Coded Allergies: pantoprazole (Verified Allergy, Severe, oral swelling, 07/27/17) ranitidine (Verified Allergy, Severe, facial swelling, 09/07/17) famotidine (Verified Allergy, Intermediate, LIPS AND TONGUE SWELL, 09/07/17 ) Home Meds No Active Prescriptions or Reported Meds Reviewed Nurses Notes: Yes Hx Smoking: No Smoking Status: Never Smoker Exposure to Second Hand Smoke?: No Hx Substance Use Disorder: No Hx Alcohol Use: Yes Constitutional Vital Sign - Last 24 Hours 10/04/17 10/04/17 10/04/17 10/04/17 21:45 21:48 21:50 21:50 Temp 97.7 Pulse 77 Resp 29 B/P (MAP) 82/51 (61) 82/51 82/55 (64) Pulse Ox 100 O2 Delivery Room Air O2 Flow Rate 2.0 10/04/17 10/04/17 10/04/17 10/04/17 21:53 21:59 22:08 22:15 Pulse 89 ??? Resp 26 B/P (MAP) 86/67 (73) 100/57 (71) Pulse Ox 99 10/04/17 10/04/17 10/04/17 10/04/17 22:23 22:30 22:38 22:45 Pulse 81 93 Resp 22 17 B/P (MAP) 105/67 (80) 107/65 (79) Pulse Ox 100 100 10/04/17 10/04/17 10/04/17 10/04/17 22:53 23:00 23:08 23:22 Pulse 92 93 Resp 16 17 B/P (MAP) 106/62 (77) 106/62 (77) Pulse Ox 100 96 10/04/17 10/04/17 10/04/17 10/05/17 23:23 23:30 23:45 00:00 Pulse 89 ??? 90 Resp 37 16 B/P (MAP) 101/68 (79) 126/70 (88) 104/70 (81) Pulse Ox 98 97 10/05/17 10/05/17 10/05/17 10/05/17 00:15 00:30 00:45 01:00 Pulse 86 89 Resp 15 14 B/P (MAP) 110/73 (85) 112/70 (84) 105/71 (82) 109/67 (81) Pulse Ox 97 99 Physical Exam General Appearance: The patient is alert. No acute distress. Eyes: Pupils are equal, round. No injection or icterus. ENT: Mucous membranes are moist. Normal oral mucosa. Posterior oropharynx is normal. Normal tympanic membranes and canals. Neck: Supple and non tender. No lymphadenopathy. Respiratory: Lungs are clear to auscultation. There are no retractions or accessory muscle use. Cardiovascular: Regular rate and rhythm. No murmurs, gallops or rubs. Normal capillary refill. No edema. Gastrointestinal: Abdomen is soft, with diffuse tenderness. Nondistended. Guarding but without rebound. Normal active bowel sounds. No costovertebral angle tenderness with percussion. Rectal exam: normal tone, mild discomfort, brown stool, no blood. Neurological: Alert and oriented x3 after getting the fluids, prior to this was uncertain level of orientation. No focal neurologic deficits. Skin: Pale and diaphoretic. Musculoskeletal: Extremities are nontender. Full range of motion. No tenderness in palpation of the back/spine. DIFFERENTIAL DIAGNOSIS: After history and physical exam, differential diagnosis was considered for pallor, hypotension, altered mental status which improves with IV fluids. Concern for infectious etiology versus blood loss and anemia with GI bleed or other abdominal process, or effect from chemotherapy. Medical Decision Making Data Points Result Diagram: 10/04/17213410/04/172134 Laboratory Hematology Test 10/04/17 00:00 10/04/17 21:35 10/04/17 21:45 10/04/17 22:44 Red Blood Count 3.77 M/uL (4.00-5.60) Mean Corpuscular Volume 67.9 fL (80.0-96.0) Mean Corpuscular Hemoglobin 21.1 pg (26.0-33.0) Mean Corpuscular Hemoglobin Concent 31.1 g/dL (32.0-36.0) Red Cell Distribution Width 17.7 % (11.5-14.5) Mean Platelet Volume 8.9 fL (7.2-11.1) Neutrophils (%) (Auto) 80.7 % (39.4-72.5) Lymphocytes (%) (Auto) 11.1 % (17.6-49.6) Monocytes (%) (Auto) 8.1 % (4.1-12.4) Eosinophils (%) (Auto) 0.0 % (0.4-6.7) Basophils (%) (Auto) 0.1 % (0.3-1.4) Nucleated RBC Relative Count (auto) 0.0 /100WBC Neutrophils # (Auto) 9.4 K/uL (2.0-7.4) Lymphocytes # (Auto) 1.3 K/uL (1.3-3.6) Monocytes # (Auto) 1.0 K/uL (0.3-1.0) Eosinophils # (Auto) 0.0 K/uL (0.0-0.5) Basophils # (Auto) 0.0 K/uL (0.0-0.1) Nucleated RBC Absolute Count (auto) 0.00 K/uL Peripheral Blood Smear Y/N Prothrombin Time 14.1 seconds (12.0-14.4) Prothromb Time International Ratio 1.08 Activated Partial Thromboplast Time 23 seconds (23-35) D-Dimer Quantitative (PE/DVT) 0.40 ug/ml (0-0.50) Sodium Level 143 mmol/L (137-145) Potassium Level 3.8 mmol/L (3.5-5.0) Chloride Level 105 mmol/L (98-107) Carbon Dioxide Level 24 mmol/L (22-30) Blood Urea Nitrogen 37 mg/dl (9-21) Creatinine 1.00 mg/dl (0.66-1.25) Glomerular Filtration Rate Calc > 60.0 Random Glucose 125 mg/dl (75-110) Calcium Level 8.2 mg/dl (8.4-10.2) Total Bilirubin 0.4 mg/dl (0.2-1.3) Aspartate Amino Transf (AST/SGOT) 19 U/L (0-35) Alanine Aminotransferase (ALT/SGPT) 23 U/L (0-56) Alkaline Phosphatase 51 U/L (0-126) Troponin I < 0.012 ng/ml Total Protein 5.5 gm/dl (6.3-8.2) Albumin 3.0 g/dl (3.5-5.0) Whole Blood Glucose 177 mg/DL (75-110) Lactate 2.0 mmol/L (0.7-2.1) Test 10/05/17 00:32 Stool Occult Blood (IFOB) Negative (NEGATIVE) Chemistry Test 10/04/17 00:00 10/04/17 21:35 10/04/17 21:45 10/04/17 22:44 White Blood Count 11.7 k/uL (4.5-11.0) Red Blood Count 3.77 M/uL (4.00-5.60) Hemoglobin 8.0 g/dL (14.0-18.0) Hematocrit 25.6 % (42.0-52.0) Mean Corpuscular Volume 67.9 fL (80.0-96.0) Mean Corpuscular Hemoglobin 21.1 pg (26.0-33.0) Mean Corpuscular Hemoglobin Concent 31.1 g/dL (32.0-36.0) Red Cell Distribution Width 17.7 % (11.5-14.5) Platelet Count 379 K/uL (150-450) Mean Platelet Volume 8.9 fL (7.2-11.1) Neutrophils (%) (Auto) 80.7 % (39.4-72.5) Lymphocytes (%) (Auto) 11.1 % (17.6-49.6) Monocytes (%) (Auto) 8.1 % (4.1-12.4) Eosinophils (%) (Auto) 0.0 % (0.4-6.7) Basophils (%) (Auto) 0.1 % (0.3-1.4) Nucleated RBC Relative Count (auto) 0.0 /100WBC Neutrophils # (Auto) 9.4 K/uL (2.0-7.4) Lymphocytes # (Auto) 1.3 K/uL (1.3-3.6) Monocytes # (Auto) 1.0 K/uL (0.3-1.0) Eosinophils # (Auto) 0.0 K/uL (0.0-0.5) Basophils # (Auto) 0.0 K/uL (0.0-0.1) Nucleated RBC Absolute Count (auto) 0.00 K/uL Peripheral Blood Smear Y/N Prothrombin Time 14.1 seconds (12.0-14.4) Prothromb Time International Ratio 1.08 Activated Partial Thromboplast Time 23 seconds (23-35) D-Dimer Quantitative (PE/DVT) 0.40 ug/ml (0-0.50) Glomerular Filtration Rate Calc > 60.0 Calcium Level 8.2 mg/dl (8.4-10.2) Total Bilirubin 0.4 mg/dl (0.2-1.3) Aspartate Amino Transf (AST/SGOT) 19 U/L (0-35) Alanine Aminotransferase (ALT/SGPT) 23 U/L (0-56) Alkaline Phosphatase 51 U/L (0-126) Troponin I < 0.012 ng/ml Total Protein 5.5 gm/dl (6.3-8.2) Albumin 3.0 g/dl (3.5-5.0) Whole Blood Glucose 177 mg/DL (75-110) Lactate 2.0 mmol/L (0.7-2.1) Test 10/05/17 00:32 Stool Occult Blood (IFOB) Negative (NEGATIVE) Coagulation Test 10/04/17 21:35 Prothrombin Time 14.1 seconds Prothromb Time International Ratio 1.08 Activated Partial Thromboplast Time 23 seconds D-Dimer Quantitative (PE/DVT) 0.40 ug/ml Urinalysis Test 10/04/17 00:00 EKG/Imaging EKG Interpretation 12 lead EKG: Rhythm: normal sinus rhythm, rate 68 [place]: normal QRS: normal ST segments: normal Imaging ACUTE ABDOMEN SERIES 3 VIEW HISTORY: Chest abdominal pain. Low blood pressure. COMPARISON: Prior chest x-rays 07/27/2017 and 07/13/2016. Prior CT of the abdomen and pelvis from 05/07/2016. TECHNIQUE: PA upright view of the chest, AP supine and AP upright views of the abdomen. Chest: Right port terminates in the mid to lower superior vena cava. There is stable linear atelectasis or scarring along the minor fissure. The left lung is clear. The cardiac and mediastinal silhouettes are within normal limits. No acute osseous abnormality. Abdomen: The distribution of bowel gas is normal, with bowel in all four quadrants as well as centrally. There is mild to moderate stool throughout colon. There is a moderate amount of stool in the rectal vault. No free air. No dilated loops of bowel. There is mild degenerative change of the spine. There are pelvic phleboliths. IMPRESSION: 1. Stable chest without acute process. 2. Unremarkable bowel gas pattern without obstruction. Report Dictated By: Nidhi Dawson at 10/04/2017 10:26 PM EXAMINATION: CT Abdomen and Pelvis With Contrast 10/04/2017 11:13 PM HISTORY: Abdominal pain TECHNIQUE: Spiral scan was through the abdomen and pelvis during injection of nonionic iodinated intravenous contrast. Contrast: 75 mL of IV Isovue 370. One of the following dose optimization techniques was utilized in the performance of this exam: Automated exposure control; adjustment of the mA and/ or kV according to the patient's size; or use of an iterative reconstruction technique. Specific details can be referenced in the facility's radiology CT exam operational policy. COMPARISON STUDIES: 05/07/2016. FINDINGS: Liver / biliary: Well-circumscribed hypoenhancing liver cysts, largest in the dome of the right lobe measuring 1.5 cm. Pancreas: negative Spleen: Incidental small anterior accessory splenule. Adrenal glands: negative Kidneys / retroperitoneum: Left renal cortical cysts. Pelvic structures: negative Bowel / peritoneum / mesenteries: The serosal margins along the lesser curvature of the stomach are indistinct with haziness of adjacent fat. Lymph nodes adjacent to this visibly may be slightly increased but by measurement are not substantially increased measuring up to 1.2 x 1.0 cm (image 44). The adjacent lesser curvature of the stomach is mildly thickened with a small air focus which may simply be within rugal fold but is worrisome for ulceration given the adjacent periserosal inflammation. No other acute bowel finding. There is some motion in the pelvis; the patient coughed during the study. Vessels: Mild atherosclerosis. Musculoskeletal / Body wall: Fatty indirect inguinal hernia on the left. Stable T12 vertebral wedging. Lymph node assessment: Lymph nodes along the lesser curvature of the stomach, as above. Lower chest: negative IMPRESSION: Thickening of the lesser curvature gastric wall with a potential small ulceration and inflammation in periserosal fat. The overall pattern is concerning for PUD. Neoplasm cannot be excluded completely given the imaging appearance. Endoscopy would be worthwhile. Report Dictated By: Dorian Gonzalez MD at 10/05/2017 12:00 AM ED Course/Re-evaluation Clinical Indication for ER IV: Hydration, Hypotention, IV Access ED Course On initial presentation, with the hypotension and altered mental status, 2 IVs were placed and the patient was given 2 L of fluid rapidly. He responded very well to this and mental status improved and stayed normal after this. He was very pale, diaphoretic. He did have diffuse abdominal pain which did not show any major problems on CT scan but did show some thickening in the wall of the stomach which could represent ulcer or his gastric lymphoma. His CBC showed his white count was slightly elevated with a slight left shift and his H&H was low. Uncertain if the low H&H is due to any GI bleeding which she has had in his past or if this is due to chemotherapy which he had recently. He has H&H has been trending down over the last few weeks. His stool occult blood was negative. 2 units of packed red blood cells were ordered. Discussed the results of all the labs and imaging with the patient. EKG negative as noted above. X- ray doesn't show any acute problem in the chest. Called and discussed the case with Dr. Castañeda who accepted the patient for admission for anemia. It is unclear whether this is due to GI bleeding, although guaiac is negative. This could still be bleeding that is not caused a change in the stool yet, especially in light of the hypotension. This could also be due to the recent chemotherapy. Decision to Disposition Date: Oct 05, 2017 Decision to Disposition Time: 01:00 Depart Departure Latest Vital Signs Vital Signs Date Time Temp Pulse Resp B/P (MAP) Pulse Ox O2 Delivery O2 Flow Rate FiO2 10/05/17 01:00 89 14 109/67 (81) 99 10/04/17 21:50 2.0 10/04/17 21:48 97.7 Room Air Impression: Primary Impression: Anemia Additional Impressions: Gastric lymphoma Hypotension Condition: Condition Unchanged Disposition: Admitted from ER New Scripts No Active Prescriptions or Reported Meds Problem Qualifiers Primary Impression: Anemia Anemia type: unspecified type Qualified Codes: D64.9 - Anemia, unspecified Additional Impressions: Hypotension Hypotension type: unspecified hypotension type Qualified Codes: I95.9 - Hypotension, unspecified JAVIER CRUZ MD Oct 04, 2017 21:54
[2017-10-04 21:59] LABS: PLATELET COUNT, AUTOMATED 379 K/uL (150-450)
[2017-10-04 22:18] LABS: INR 1.08
--- NOTE | 2017-10-04 22:34 | RADIOLOGY IMAGING REPORT ---
FACILITY: [facility] - [place] PATIENT NAME: Yoel Tee : 1960 MR: [id number] V: [id number] EXAM DATE: ORDERING PHYSICIAN: JAVIER CRUZ TECHNOLOGIST: Location: [facility] [place] Patient: Yole Tee : 1960 Visit/Account:[id number] Date of Sevice: 10/04/2017 ACUTE ABDOMEN SERIES 3 VIEW HISTORY: Chest abdominal pain. Low blood pressure. COMPARISON: Prior chest x-rays 07/27/2017 and 07/13/2016. Prior CT of the abdomen and pelvis from 017. TECHNIQUE: PA upright view of the chest, AP supine and AP upright views of the abdomen. Chest: Right port terminates in the mid to lower superior vena cava. There is stable linear atelectas is or scarring along the minor fissure. The left lung is clear. The cardiac and mediastinal silhouett es are within normal limits. No acute osseous abnormality. Abdomen: The distribution of bowel gas is normal, with bowel in all four quadrants as well as central ly. There is mild to moderate stool throughout colon. There is a moderate amount of stool in the rect al vault. No free air. No dilated loops of bowel. There is mild degenerative change of the spine. The re are pelvic phleboliths. IMPRESSION: 1. Stable chest without acute process. 2. Unremarkable bowel gas pattern without obstruction. Report Dictated By: Nidhi Dawson at 10/04/2017 10:26 PM Report E-Signed By: Nidhi Dawson at 10/04/2017 10:30 PM WSN:[id number]
--- NOTE | 2017-10-04 22:41 | EKG ---
FACILITY: [facility] - [place] PATIENT NAME: DOMINICK ARIZMENDI : [id number] MR: [id number] V: [id number] EXAM DATE: ORDERING PHYSICIAN: JAVIER CRUZ TECHNOLOGIST: MARY Test Reason : CHST PAIN Blood Pressure : / mmHG Vent. Rate : 068 BPM Atrial Rate : 068 BPM P-R Int : 150 ms QRS Dur : 086 ms QT Int : 382 ms P-R-T Axes : 064 031 057 degrees QTc Int : 406 ms Normal sinus rhythm Normal ECG When compared with ECG of 27-JUL-2017 19:35, No significant change was found Confirmed by KOFI ELIZABETH ([id number]) on 10/05/2017 6:33:09 AM Referred By: Confirmed By:KOFI ELIZABETH
[2017-10-04] MEDS ORDERED: IOPAMIDOL 76% 75 ML INFUS BTL 75 ML ONE (23:25)
[2017-10-05] VITALS (9 sets, daily range): BP systolic 107–128; BP diastolic 58–81; Ht 188 cm; Wt 109.5 kg
--- NOTE | 2017-10-05 00:16 | RADIOLOGY IMAGING REPORT ---
FACILITY: [facility] PATIENT NAME: Yoel Tee : 1960 MR: [id number] V: [id number] EXAM DATE: ORDERING PHYSICIAN: JAVIER CRUZ TECHNOLOGIST: Location: [facility] - [place] Patient: Yoel Tee : 1960 Visit/Account:[id number] Date of Sevice: 10/04/2017 EXAMINATION: CT Abdomen and Pelvis With Contrast 10/04/2017 11:13 PM HISTORY: Abdominal pain TECHNIQUE: Spiral scan was through the abdomen and pelvis during injection of nonionic iodinated in travenous contrast. Contrast: 75 mL of IV Isovue 370. One of the following dose optimization techniques was utilized in the performance of this exam: Autom ated exposure control; adjustment of the mA and/or kV according to the patient's size; or use of an i terative reconstruction technique. Specific details can be referenced in the facility's radiology C T exam operational policy. COMPARISON STUDIES: 05/07/2016. FINDINGS: Liver / biliary: Well-circumscribed hypoenhancing liver cysts, largest in the dome of the right lobe measuring 1.5 cm. Pancreas: negative Spleen: Incidental small anterior accessory splenule. Adrenal glands: negative Kidneys / retroperitoneum: Left renal cortical cysts. Pelvic structures: negative Bowel / peritoneum / mesenteries: The serosal margins along the lesser curvature of the stomach are i ndistinct with haziness of adjacent fat. Lymph nodes adjacent to this visibly may be slightly increas ed but by measurement are not substantially increased measuring up to 1.2 x 1.0 cm (image 44). The ad jacent lesser curvature of the stomach is mildly thickened with a small air focus which may simply be within rugal fold but is worrisome for ulceration given the adjacent periserosal inflammation. No ot her acute bowel finding. There is some motion in the pelvis; the patient coughed during the study. Vessels: Mild atherosclerosis. Musculoskeletal / Body wall: Fatty indirect inguinal hernia on the left. Stable T12 vertebral wedging . Lymph node assessment: Lymph nodes along the lesser curvature of the stomach, as above. Lower chest: negative IMPRESSION: Thickening of the lesser curvature gastric wall with a potential small ulceration and inflammation in periserosal fat. The overall pattern is concerning for PUD. Neoplasm cannot be excluded completely g rubén the imaging appearance. Endoscopy would be worthwhile. Report Dictated By: Dorian Gonzalez MD at 10/05/2017 12:00 AM Report E-Signed By: Dorian Gonzalez MD at 10/05/2017 12:11 AM WSN:[id number]
[2017-10-05] MEDS ORDERED: EMS NS 0.9%(*) 1000 ML BAG 1,000 ML IV ONE (01:05)
[2017-10-05] MEDS ORDERED: NS(*) 0.9% 1000 ML BAG 1,000 ML IV PRN (02:37)
[2017-10-05] MEDS ORDERED: INFLUENZA VIRUS VAC 0.5 ML SYR IM ONLY ONE (02:40)
[2017-10-05] MEDS ORDERED: ACETAMINOPHEN 325 MG TAB PO PRN (02:40)
[2017-10-05] MEDS ORDERED: NS(*) 0.9% 250 ML BAG 250 ML ONE (02:59)
--- NOTE | 2017-10-05 03:13 | History & Physical ---
History of Present Illness Chief Complaint Weakness, shortness of breath today. History of Present Illness The patient is a 57 year old male with PMH significant for B-cell gastric lymphoma who presents with weakness and shortness of breath today. He had his first round of chemotherapy on Thursday (10/02) with R-CHOP. Hgb was 10.8 before starting chemo on 10/02. He felt like he had a "Benadryl hangover" on Thursday but was not short of breath. On Thursday he worked on chores around the house. He noted shortness of breath with climbing the stairs. This worsened as the day progressed. He finally laid down on the couch to rest but he continued to feel more short of breath. He also felt weak. He called EMS to bring him to [facility] ER for evaluation. He denies significant cough. He states his mouth gets dry and he has an occasional cough with this. He denies fever or chills. He has not had dysuria. He denies nausea or vomiting. He denies recent dark or tarry stools. Prior to diagnosis of his gastric lymphoma, he had several episodes of GI bleeding and had EGDs and colonoscopy for evaluation. Dr. Pope, change control analyst, performed his most recent work up and found the gastric lymphoma at the end of July. In the ER earlier this evening, the patient was initially found to be hypotensive and somnolent. He was given fluids and his BP came up. With this he became alert and awake. His hemoglobin was noted to be 8. CT of the abdomen and pelvis showed thickening of the lesser curvature gastric wall with a potential small ulceration and inflammation in periserosal fat. Stool was hemoccult negative. Abdominal x-rays showed a normal chest and unremarkable bowel gas pattern. BUN was elevated at 37 with creatinine of 1.0. The patient was recommended for admission for blood transfusion and ongoing monitoring. History Problems: (1) History of upper gastrointestinal bleeding (2) HTN (hypertension) (3) Paroxysmal A-fib (4) Gastric lymphoma Status: Chronic (5) Gastric ulcer Status: Acute (6) S/P foot surgery, right Status: Resolved Comment: Bone chip removed. (7) Hx of tonsillectomy Status: Resolved Home Meds No Active Prescriptions or Reported Meds Allergies: Coded Allergies: pantoprazole (Verified Allergy, Severe, oral swelling, 07/27/17) ranitidine (Verified Allergy, Severe, facial swelling, 09/07/17) famotidine (Verified Allergy, Intermediate, LIPS AND TONGUE SWELL, 09/07/17 ) Patient History: FH: colon cancer Paternal GF FH: prostate cancer FATHER (prostate cancer) Hx Smoking: No Smoking Status: Never Smoker Exposure to Second Hand Smoke?: No Caffeine Intake: Soda Caffeine/Cups Per Day: none Hx Alcohol Use: Yes Hx Substance Use Disorder: No Social Drug Use: Never History of IV Drug Use: No Review of Systems All Systems Reviewed/Normal: Yes, Except as Noted Constitutional: No Fever, No Chills Neurological: Weakness Cardiovascular: No Chest Pain Respiratory: Shortness of Breath, No Cough Gastrointestinal: No Nausea, No Vomiting, No Hematemesis, No Hematochezia, No Melena Genitourinary: No Dysuria Exam Vital Signs Vital Signs Date Time Temp Pulse Resp B/P (MAP) Pulse Ox O2 Delivery O2 Flow Rate FiO2 10/05/17 01:53 92 Room Air 10/05/17 01:50 18 128/71 (90) 1.5 10/05/17 01:00 89 10/04/17 21:48 97.7 General Appearance: Alert, Awake, No Acute Distress, Afebrile Neuro: No Gross deficits Cardiovascular: Other (Tachy, regular.) Respiratory: Clear to Auscultation GI: Other (Abdomen soft, tender in epigstrium to palpation without palpable mass.) Extremities: Warm, Perfused, Other (No edema.) Integumentary: Skin Intact without Lesion / Mass Psych: Appropriate Mood & Affect Medical Decision Making Data Points Result Diagram: 10/04/17213410/04/172134 Item Value Date Time Calcium Level 8.2 mg/dl L 10/04/172134 Total Bilirubin 0.4 mg/dl 10/04/172134 Aspartate Amino Transf (AST/SGOT) 19 U/L 10/04/172134 Alanine Aminotransferase (ALT/SGPT) 23 U/L 10/04/172134 Alkaline Phosphatase 51 U/L 10/04/172134 Total Protein 5.5 gm/dl L 10/04/172134 Albumin 3.0 g/dl L 10/04/172134 Troponin I < 0.012 ng/ml 6/10/18 2135 Lactate 2.0 mmol/L 10/04/174 Prothrombin Time 14.1 seconds 10/04/172134 Prothromb Time International Ratio 1.08 10/04/172134 Activated Partial Thromboplast Time 23 seconds 10/04/172134 D-Dimer Quantitative (PE/DVT) 0.40 ug/ml 10/04/172134 Stool Occult Blood (IFOB) Negative 10/05/17 0032 EKG / Imaging EKG Interpretation FACILITY: [facility] [place] PATIENT NAME: YOEL TEE : [id number] MR: [id number] V: [id number] EXAM DATE: [id number] ORDERING PHYSICIAN: JAVIER CRUZ TECHNOLOGIST: MARY Test Reason : CHST PAIN Blood Pressure : / mmHG Vent. Rate : 068 BPM Atrial Rate : 068 BPM P-R Int : 150 ms QRS Dur : 086 ms QT Int : 382 ms P-R-T Axes : 064 031 057 degrees QTc Int : 406 ms Normal sinus rhythm Normal ECG When compared with ECG of 27-JUL-2017 19:35, No significant change was found Referred By: Confirmed By: 42 T: / Imaging FACILITY: [facility] [place] PATIENT NAME: Yoel Tee : 1960 MR: [id number] V: [id number] EXAM DATE: [id number] ORDERING PHYSICIAN: JAVIER CRUZ TECHNOLOGIST: Location: [facility] [place] Patient: Yoel Tee : 1960 Visit/Account:[id number] Date of Sevice: 10/04/2017 EXAMINATION: CT Abdomen and Pelvis With Contrast 10/04/2017 11:13 PM HISTORY: Abdominal pain TECHNIQUE: Spiral scan was through the abdomen and pelvis during injection of nonionic iodinated intravenous contrast. Contrast: 75 mL of IV Isovue 370. One of the following dose optimization techniques was utilized in the performance of this exam: Automated exposure control; adjustment of the mA and/ or kV according to the patient's size; or use of an iterative reconstruction technique. Specific details can be referenced in the facility's radiology CT exam operational policy. COMPARISON STUDIES: 05/07/2016. FINDINGS: Liver / biliary: Well-circumscribed hypoenhancing liver cysts, largest in the dome of the right lobe measuring 1.5 cm. Pancreas: negative Spleen: Incidental small anterior accessory splenule. Adrenal glands: negative Kidneys / retroperitoneum: Left renal cortical cysts. Pelvic structures: negative Bowel / peritoneum / mesenteries: The serosal margins along the lesser curvature of the stomach are indistinct with haziness of adjacent fat. Lymph nodes adjacent to this visibly may be slightly increased but by measurement are not substantially increased measuring up to 1.2 x 1.0 cm (image 44). The adjacent lesser curvature of the stomach is mildly thickened with a small air focus which may simply be within rugal fold but is worrisome for ulceration given the adjacent periserosal inflammation. No other acute bowel finding. There is some motion in the pelvis; the patient coughed during the study. Vessels: Mild atherosclerosis. Musculoskeletal / Body wall: Fatty indirect inguinal hernia on the left. Stable T12 vertebral wedging. Lymph node assessment: Lymph nodes along the lesser curvature of the stomach, as above. Lower chest: negative IMPRESSION: Thickening of the lesser curvature gastric wall with a potential small ulceration and inflammation in periserosal fat. The overall pattern is concerning for PUD. Neoplasm cannot be excluded completely given the imaging appearance. Endoscopy would be worthwhile. Report Dictated By: Dorian Gonzalez MD at 10/05/2017 12:00 AM Report E-Signed By: Dorian Gonzalez MD at 10/05/2017 12:11 AM WSN:[id number] FACILITY: [facility] [place] PATIENT NAME: Yoel Tee : 1960 MR: [id number] V: [id number] EXAM DATE: ORDERING PHYSICIAN: JAVIER CRUZ TECHNOLOGIST: Location: [facility] [place] Patient: Yoel Tee : 1960 Visit/Account:[id number] Date of Sevice: 10/04/2017 ACUTE ABDOMEN SERIES 3 VIEW HISTORY: Chest abdominal pain. Low blood pressure. COMPARISON: Prior chest x-rays 07/27/2017 and 07/13/2016. Prior CT of the abdomen and pelvis from 05/07/2016. TECHNIQUE: PA upright view of the chest, AP supine and AP upright views of the abdomen. Chest: Right port terminates in the mid to lower superior vena cava. There is stable linear atelectasis or scarring along the minor fissure. The left lung is clear. The cardiac and mediastinal silhouettes are within normal limits. No acute osseous abnormality. Abdomen: The distribution of bowel gas is normal, with bowel in all four quadrants as well as centrally. There is mild to moderate stool throughout colon. There is a moderate amount of stool in the rectal vault. No free air. No dilated loops of bowel. There is mild degenerative change of the spine. There are pelvic phleboliths. IMPRESSION: 1. Stable chest without acute process. 2. Unremarkable bowel gas pattern without obstruction. Report Dictated By: Nidhi Dawson at 10/04/2017 10:26 PM Report E-Signed By: Nidhi Dawson at 10/04/2017 10:30 PM WSN:[id number] Assessment and Plan Problems: (1) Symptomatic anemia Status: Acute Assessment & Plan: May be due to recent chemotherapy versus GI bleeding. Will transfuse 2u PRBCs. Monitor BP. Repeat labs after transfusion. Monitor for signs of bleeding. Initial hemoccult negative but BUN elevated at 37 (Cr 1.0). (2) Hypotension Status: Acute Assessment & Plan: Due to above. Will hydrate and give 2 u PRBCs when available. Monitor closely. Repeat labs after transfusion. (3) Gastric lymphoma Status: Chronic Assessment & Plan: Diagnosed in July of this year. See Dr. Madden's notes for complete details. The patient received his first round of R-CHOP on October 02. Venous Thromboembolism Antithrombotics Is Pt On Any Antithrombotics?: No Prophylaxis Tx Contraindicated Pharmacological Contraindicati: Medical Contraindication Exam Sepsis Risk: No Definite Risk Problem Qualifiers (1) Hypotension: Hypotension type: unspecified hypotension type Qualified Codes: I95.9 - Hypotension, unspecified KOFI BUSTAMANTE MD Oct 05, 2017 03:13
[2017-10-05] MEDS ORDERED: diphenhydrAMINE 50 MG/ML VIAL IVP PRN (03:15)
--- NOTE | 2017-10-05 08:39 | Hospitalist Progress Note ---
Subjective Progress Notes Subjective No complaints this AM. He has tolerated transfusion well. Physical Exam Vital Signs Date Time Temp Pulse Resp B/P (MAP) Pulse Ox O2 Delivery O2 Flow Rate FiO2 10/05/17 07:22 98.8 88 16 123/81 (95) 95 Room Air 10/05/17 01:50 1.5 General Appearance: Alert, Awake Cardiovascular: Regular Rate and Rhythm Respiratory: Clear to Auscultation Chest: Other (port right upper chest) GI: Other (soft with mild upper abdominal tenderness reported with palpation/ BS present) Psych: Alert & Oriented X3 Result Diagram: 10/04/17213410/04/172134 Assessment and Plan Problems: (1) Symptomatic anemia Status: Acute Assessment & Plan: May be due to recent chemotherapy (versus less likely GI bleeding - occult blood negative). Transfused 2u PRBCs - repeat labs after transfusion pending. No signs of bleeding. (2) Hypotension Status: Acute Assessment & Plan: Due to above and probable dehydration. Improved with IV fluids and blood. Monitor. Repeat labs after transfusion are pending. (3) Gastric lymphoma Status: Chronic Assessment & Plan: Diagnosed in July of this year. See Dr. Madden's notes for complete details. The patient received his first round of R-CHOP on October 02. Exam Sepsis Risk: No Definite Risk Problem Qualifiers (1) Hypotension: Hypotension type: unspecified hypotension type Qualified Codes: I95.9 - Hypotension, unspecified THANG BUSTAMANTE MD Oct 05, 2017 08:39
[2017-10-05] MEDS ORDERED: predniSONE 20 MG TAB PO ONE (09:20)
[2017-10-05 10:18] LABS: PLATELET COUNT, AUTOMATED 228 K/uL (150-450)
[2017-10-05] MEDS ORDERED: PRED20TA6 PO (12:28)
--- NOTE | 2017-10-05 12:37 | Hospitalist Depart ---
Discharge Summary Reason for Hosp/Final Diag: (1) Symptomatic anemia Status: Acute Hospital Course & Plan: May be due to recent chemotherapy (versus less likely GI bleeding - occult blood negative). He did not have any signs of GI bleeding/ blood loss. He was transfused 2 units PRBCs and tolerated it very well. Repeat labs after transfusion showed only minimal rise. This is most likely due to the fact he was somewhat dehydrated. He was symptomatically significantly improved. He was tolerating low level activities without problems. He will follow up with [facility] in next 2-3 days to re-check labs. (2) Hypotension Status: Acute Hospital Course & Plan: Due to the anemia and dehydration. Improved with IV fluids and blood. He will follow up closely with [facility]. (3) Gastric lymphoma Status: Chronic Hospital Course & Plan: Diagnosed in July of this year. See Dr. Grullon's notes for complete details. The patient received his first round of R-CHOP on October 02. (4) Hypokalemia Status: Acute Hospital Course & Plan: Mild. Possibly due to decreased intake. He will be on MicroK 10mEq PO BID. He will have re-check lab at [facility] in next 2-3 days. Departure Weight (Pounds): 241 Weight (Ounces): 5.0 Result Diagram: 10/05/17 1006 10/05/17 1006 Item Value Date Time Sodium Level 143 mmol/L 10/04/172134 Potassium Level 3.8 mmol/L 10/04/172134 Chloride Level 105 mmol/L 10/04/172134 Carbon Dioxide Level 24 mmol/L 10/04/172134 Blood Urea Nitrogen 37 mg/dl H 10/04/172134 Creatinine 1.00 mg/dl 10/04/172134 Glomerular Filtration Rate Calc > 60.0 10/04/172134 Random Glucose 125 mg/dl H 10/04/172134 Calcium Level 8.2 mg/dl L 10/04/172134 Total Bilirubin 0.4 mg/dl 10/04/172134 Alanine Aminotransferase (ALT/SGPT) 23 U/L 10/04/175 Aspartate Amino Transf (AST/SGOT) 19 U/L 10/04/172134 Alkaline Phosphatase 51 U/L 10/04/172134 Troponin I < 0.012 ng/ml 10/04/172134 Total Protein 5.5 gm/dl L 10/04/172134 Albumin 3.0 g/dl L 10/04/172134 Lactate 2.0 mmol/L 10/04/172243 Prothrombin Time 14.1 seconds 10/04/172134 Prothromb Time International Ratio 1.08 10/04/172134 Activated Partial Thromboplast Time 23 seconds 10/04/172134 D-Dimer Quantitative (PE/DVT) 0.40 ug/ml 10/04/172134 Stool Occult Blood (IFOB) Negative 10/05/17 0032 [facility] *LIVE* [address] [place] [address] DIGNA FELDER M.D., DIRECTOR OF LABORATORY SERVICES LYNN PEREZ M.D., PATHOLOGIST RUN DATE: 10/05/17 Specimen Inquiry Report PAGE 1 RUN TIME: 1000 PATIENT: YOEL TEE Ck ACCT: [id number] LOC: [facility] U : [id number] AGE/SX: 57/M ROOM: [facility] REG : 10/05/[address]: KOFI BUSTAMANTE MD : 1960 BED: 271 DIS : STATUS: ADM IN TLOC: SPEC #: [id number] MARCO ANTONIO: 10/04/17 STATUS: RES REQ #: [id number] RECD: 10/04/17-2306 VIK CASTANEDA: JAVIER CRUZ MD SOURCE: BLOOD ENTR: 10/04/17-2157 MOMO CASTANEDA: JUANA: ORDERED: CULT BLOOD Procedure Result Verified BLOOD CULTURE Preliminary 10/05/17-1000 NO GROWTH AFTER 1 DAY, REINCUBATED [facility] *LIVE* [address] [place] [address] DIGNA FELDER M.D., DIRECTOR OF LABORATORY SERVICES LYNN PEREZ M.D., PATHOLOGIST RUN DATE: 10/05/17 Specimen Inquiry Report PAGE 1 RUN TIME: 1000 PATIENT: YOEL TEE ACCT: [id number] LOC: [facility] U : [id number] AGE/SX: 57/M ROOM: 2271 REG : 10/05/[address]: KOFI BUSTAMANTE MD : 1960 BED: 271 DIS : STATUS: ADM IN TLOC: SPEC #: [id number] MARCO ANTONIO: 10/04/17 STATUS: RES REQ #: [id number] RECD: 10/04/[address]: JAVIER CRUZ MD SOURCE: BLOOD ENTR: 10/04/[address]: SPDES: ORDERED: CULT BLOOD Procedure Result Verified BLOOD CULTURE Preliminary 10/05/17-1000 NO GROWTH AFTER 1 DAY, REINCUBATED Imaging PATIENT NAME: Yoel Tee : 1960 MR: [id number] V: [id number] EXAM DATE: [id number] ORDERING PHYSICIAN: JAVIER CRUZ TECHNOLOGIST: Location: [facility] [place] Patient: Yoel Tee : 1960 Visit/Account:[id number] Date of Sevice: 10/04/2017 EXAMINATION: CT Abdomen and Pelvis With Contrast 10/04/2017 11:13 PM HISTORY: Abdominal pain TECHNIQUE: Spiral scan was through the abdomen and pelvis during injection of nonionic iodinated intravenous contrast. Contrast: 75 mL of IV Isovue 370. One of the following dose optimization techniques was utilized in the performance of this exam: Automated exposure control; adjustment of the mA and/ or kV according to the patient's size; or use of an iterative reconstruction technique. Specific details can be referenced in the facility's radiology CT exam operational policy. COMPARISON STUDIES: 05/07/2016. FINDINGS: Liver / biliary: Well-circumscribed hypoenhancing liver cysts, largest in the dome of the right lobe measuring 1.5 cm. Pancreas: negative Spleen: Incidental small anterior accessory splenule. Adrenal glands: negative Kidneys / retroperitoneum: Left renal cortical cysts. Pelvic structures: negative Bowel / peritoneum / mesenteries: The serosal margins along the lesser curvature of the stomach are indistinct with haziness of adjacent fat. Lymph nodes adjacent to this visibly may be slightly increased but by measurement are not substantially increased measuring up to 1.2 x 1.0 cm (image 44). The adjacent lesser curvature of the stomach is mildly thickened with a small air focus which may simply be within rugal fold but is worrisome for ulceration given the adjacent periserosal inflammation. No other acute bowel finding. There is some motion in the pelvis; the patient coughed during the study. Vessels: Mild atherosclerosis. Musculoskeletal / Body wall: Fatty indirect inguinal hernia on the left. Stable T12 vertebral wedging. Lymph node assessment: Lymph nodes along the lesser curvature of the stomach, as above. Lower chest: negative IMPRESSION: Thickening of the lesser curvature gastric wall with a potential small ulceration and inflammation in periserosal fat. The overall pattern is concerning for PUD. Neoplasm cannot be excluded completely given the imaging appearance. Endoscopy would be worthwhile. Report Dictated By: Dorian Gonzalez MD at 10/05/2017 12:00 AM Report E-Signed By: Dorian Gonzalez MD at 10/05/2017 12:11 AM WSN:[id number] EKG PATIENT NAME: YOEL TEE : [id number] MR: [id number] V: [id number] EXAM DATE: ORDERING PHYSICIAN: JAVIER CRUZ TECHNOLOGIST: MARY Test Reason : CHST PAIN Blood Pressure : / mmHG Vent. Rate : 068 BPM Atrial Rate : 068 BPM P-R Int : 150 ms QRS Dur : 086 ms QT Int : 382 ms P-R-T Axes : 064 031 057 degrees QTc Int : 406 ms Normal sinus rhythm Normal ECG When compared with ECG of 27-JUL-2017 19:35, No significant change was found Confirmed by KOFI ELIZABETH ([id number]) on 10/05/2017 6:33:09 AM Referred By: Confirmed By:KOFI ELIZABETH Condition: Improved Discharge: Home, Self Care Follow-Up Labs: Other (CBC, CMP, Magnesium in 2-3 days at [facility].) Time Spent: > 30 min Discharge Instructions Home Meds Active Scripts Potassium Chloride (POTASSIUM CHLORIDE) 10 Meq Tablet.er, 10 MEQ PO BID, #14 TAB 1 Refill Take with food Prov:THANG BUSTAMANTE MD 10/05/17 Prednisone (PREDNISONE) 20 Mg Tablet, 100 MG PO QDAY for 1 Day, #5 TAB This is to finish the 5 days following first round of chemotherapy. Prov:THANG BUSTAMANTE MD 10/05/17 Follow up Referrals: Hematology and Oncology @ [place] with Henrry Grullon Md Diet: Regular (2-3L of fluids each day) Activity: As Tolerated, No Exertion Copies to: HENRRY GRULLON MD Venous Thromboembolism Antithrombotics Is Pt On Any Antithrombotics?: No Problem Qualifiers (1) Hypotension: Hypotension type: unspecified hypotension type Qualified Codes: I95.9 - Hypotension, unspecified THANG BUSTAMANTE MD Oct 05, 2017 12:36
[2017-10-05] MEDS ORDERED: POTA-28 PO (12:39)
== END 2017-10-05 12:25 | disposition home or self-care (01) ==
LOC: ER 21:42 → INTOOBSV 10-05 01:02 → UNDOADMOB 10-05 01:02 → MED 10-05 01:02
PROVIDERS: ADMIT Internal Medicine; ATTEND Internal Medicine
DX: D64.9 Anemia, unspecified (principal); I95.9 Hypotension, unspecified; C85.89 Other specified types of non-Hodgkin lymphoma, extranodal and solid organ sites; E87.6 Hypokalemia
CPT/HCPCS: 36415; 36416; 74022; 74177; 82274; 82948; 83605; 84484; 85025; 85379; 85610; 85730; 86850; 86900; 86901; 86920; 87040; 93005; G0378; J7030; J7512; P9016; Q9967; 82040; 82247; 82310; 82374; 82435; 82565; 82947; 84075; 84132; 84155; 84295; 84450; 84460; 84520

== ENCOUNTER → 2017-10-04 | Outpatient (CLI) | payer OTHER ==
[~2017-10-04] MED LIST changes: +HYDR2TAB74 PO; +ONDA4TAB PO; +PROM-110 PO; +SUCR1ORA17 PO
[2017-10-05 10:07] VITALS: BMI 30.9
== END ==
LOC: AMB 21:23
PROVIDERS: ATTEND Nurse Practitioner
DX: R03.1 Nonspecific low blood-pressure reading (principal); R10.9 Unspecified abdominal pain; R51 Headache; C85.99 Non-Hodgkin lymphoma, unspecified, extranodal and solid organ sites
CPT/HCPCS: A0425; A0427

== ENCOUNTER 2017-10-10 20:58 | Emergency (ER) | payer OTHER ==
[2017-10-05 10:07] VITALS: Wt 109.5 kg
[~2017-10-10 20:58] MED LIST changes: +POTA-28 PO; +PRED20TA6 PO
--- NOTE | 2017-10-10 21:09 | ER Report ---
History and Physical Time Seen By MD: 21:08 HPI/ROS CHIEF COMPLAINT: Severe epigastric pain, black stools HISTORY OF PRESENT ILLNESS: 57-year-old male with a known history of gastric lymphoma, undergoing chemotherapy. Patient received 2 blood transfusions within the last week. Patient was seen here several days ago and had a CAT scan. His pain is gotten much worse. He was sent in by primary care for further evaluation since he's having black stools or word about GI bleed. REVIEW OF SYSTEMS: Respiratory: No cough, no dyspnea. Cardiovascular: No chest pain, no palpitations. Gastrointestinal: As above Musculoskeletal: No back pain. Allergies: Coded Allergies: pantoprazole (Verified Allergy, Severe, oral swelling, 10/10/17) ranitidine (Verified Allergy, Severe, facial swelling, 10/10/17) famotidine (Verified Allergy, Intermediate, LIPS AND TONGUE SWELL, 10/10/17 ) Home Meds Active Scripts Promethazine Hcl (PROMETHAZINE HCL) 25 Mg Tablet, 25 MG PO Q4H Y for NAUSEA/ VOMITING, #15 TAB Prov:DOLLY RICO DO 10/10/17 Ondansetron (ZOFRAN ODT) 4 Mg Tab.rapdis, 4 MG PO Q6H Y for NAUSEA/VOMITING, # 15 TAB.GABRIELE Prov:DOLLY RICO DO 10/10/17 Hydromorphone Hcl (DILAUDID) 2 Mg Tablet, 1-2 MG PO Q4H Y for PAIN, #15 Prov:DOLLY RICO DO 10/10/17 Potassium Chloride (POTASSIUM CHLORIDE) 10 Meq Tablet.er, 10 MEQ PO BID, #14 TAB 1 Refill Take with food Prov:THANG BUSTAMANTE MD 10/05/17 Prednisone (PREDNISONE) 20 Mg Tablet, 100 MG PO QDAY for 1 Day, #5 TAB This is to finish the 5 days following first round of chemotherapy. Prov:THANG BUSTAMANTE MD 10/05/17 Reported Medications Sucralfate (CARAFATE) 1 Gm/10 Ml Oral.susp, 1 GM PO 10/10/17 Hx Smoking: No Smoking Status: Never Smoker Exposure to Second Hand Smoke?: No Hx Substance Use Disorder: No Hx Alcohol Use: Yes Constitutional Vital Sign - Last 24 Hours 10/10/17 10/10/17 10/10/17 10/10/17 21:08 21:09 21:13 21:15 Temp 98.2 Pulse 112 98 Resp 20 B/P (MAP) 100/67 (78) 100/67 98/64 (75) Pulse Ox 99 94 O2 Delivery Room Air 10/10/17 10/10/17 10/10/17 10/10/17 21:28 21:30 21:43 21:45 Pulse 91 97 B/P (MAP) 94/61 (72) 119/76 (90) 113/78 (90) Pulse Ox 91 91 10/10/17 10/10/17 10/10/17 10/10/17 21:58 22:00 22:13 22:15 Pulse ??? 93 B/P (MAP) 132/76 (94) 114/75 (88) Pulse Ox 93 10/10/17 10/10/17 10/10/17 10/10/17 22:28 22:33 22:45 22:48 Pulse 90 89 88 B/P (MAP) 111/71 (84) Pulse Ox 95 96 97 10/10/17 10/10/17 10/10/17 22:55 23:00 23:03 Pulse ??? B/P (MAP) 114/74 (87) ???/??? (6116) Physical Exam General Appearance: The patient is alert, has no immediate need for airway protection and no current signs of toxicity. Slightly pale appearing, skin warm and dry, vital signs stable, afebrile HEENT: Pupils equal and round no injection. Oropharynx without redness or exudate, mucous. Membranes are moist Respiratory: Chest is non tender, lungs are clear to auscultation. Cardiac: regular rate and rhythm Gastrointestinal: Abdomen is soft moderate epigastric tenderness with guarding, no rebound, no masses, bowel sounds normal. Musculoskeletal: Neck: Neck is supple and non tender. Extremities have full range of motion and are non tender. No edema, no calf tenderness Skin: No rashes or lesions. DIFFERENTIAL DIAGNOSIS: After history and physical exam differential diagnosis was considered for abdominal pain including but not limited to appendicitis, cholecystitis, gastritis, GI bleed, gastric perforation, ischemic bowel and urinary tract infection. Medical Decision Making Data Points Result Diagram: 10/10/17213810/10/172138 Laboratory Hematology Test 10/10/17 21:10/10/17 21:39 Urine Color Yellow Urine Clarity Clear Urine pH 6.0 pH (4.8-9.5) Urine Specific [place] 1.019 Urine Protein Negative mg/dL (NEGATIVE) Urine Glucose (UA) Negative mg/dL (NEGATIVE) Urine Ketones 20 mg/dL (NEGATIVE) Urine Blood Negative (NEGATIVE) Urine Nitrite Negative (NEGATIVE) Urine Bilirubin Negative (NEGATIVE) Urine Urobilinogen Negative mg/dL (0.2-1.9) Urine Leukocyte Esterase Negative (NEGATIVE) Urine RBC None /HPF (0-2/HPF) Urine WBC 1 /HPF (0-5/HPF) Urine Squamous Epithelial Cells Moderate /LPF (</=FEW) Urine Bacteria Negative /HPF (NONE-FEW) Urine Mucus Few /HPF (NONE-FEW) Red Blood Count 3.68 M/uL (4.00-5.60) Mean Corpuscular Volume 74.0 fL (80.0-96.0) Mean Corpuscular Hemoglobin 24.8 pg (26.0-33.0) Mean Corpuscular Hemoglobin Concent 33.4 g/dL (32.0-36.0) Red Cell Distribution Width 22.2 % (11.5-14.5) Mean Platelet Volume 8.5 fL (7.2-11.1) Neutrophils (%) (Auto) 83.3 % (39.4-72.5) Lymphocytes (%) (Auto) 12.2 % (17.6-49.6) Monocytes (%) (Auto) 2.3 % (4.1-12.4) Eosinophils (%) (Auto) 1.4 % (0.4-6.7) Basophils (%) (Auto) 0.8 % (0.3-1.4) Nucleated RBC Relative Count (auto) 0.2 /100WBC Neutrophils # (Auto) 4.4 K/uL (2.0-7.4) Lymphocytes # (Auto) 0.6 K/uL (1.3-3.6) Monocytes # (Auto) 0.1 K/uL (0.3-1.0) Eosinophils # (Auto) 0.1 K/uL (0.0-0.5) Basophils # (Auto) 0.0 K/uL (0.0-0.1) Nucleated RBC Absolute Count (auto) 0.01 K/uL Peripheral Blood Smear Yes Y/N Prothrombin Time 13.7 seconds (12.0-14.4) Prothromb Time International Ratio 1.05 Activated Partial Thromboplast Time 31 seconds (23-35) Sodium Level 138 mmol/L (137-145) Potassium Level 3.1 mmol/L (3.5-5.0) Chloride Level 103 mmol/L (98-107) Carbon Dioxide Level 23 mmol/L (22-30) Blood Urea Nitrogen 12 mg/dl (9-21) Creatinine 0.80 mg/dl (0.66-1.25) Glomerular Filtration Rate Calc > 60.0 Random Glucose 112 mg/dl (75-110) Calcium Level 8.1 mg/dl (8.4-10.2) Total Bilirubin 0.8 mg/dl (0.2-1.3) Aspartate Amino Transf (AST/SGOT) 14 U/L (0-35) Alanine Aminotransferase (ALT/SGPT) 28 U/L (0-56) Alkaline Phosphatase 60 U/L (0-126) C-Reactive Protein 3.5 mg/dl (<1.0) Total Protein 6.4 g/dl (6.3-8.2) Albumin 3.4 g/dl (3.5-5.0) Amylase Level 83 U/L (0-110) Lipase 52 U/L (23-300) Chemistry Test 10/10/17 21:07 10/10/17 21:39 Urine Color Yellow Urine Clarity Clear Urine pH 6.0 pH (4.8-9.5) Urine Specific [place] 1.019 Urine Protein Negative mg/dL (NEGATIVE) Urine Glucose (UA) Negative mg/dL (NEGATIVE) Urine Ketones 20 mg/dL (NEGATIVE) Urine Blood Negative (NEGATIVE) Urine Nitrite Negative (NEGATIVE) Urine Bilirubin Negative (NEGATIVE) Urine Urobilinogen Negative mg/dL (0.2-1.9) Urine Leukocyte Esterase Negative (NEGATIVE) Urine RBC None /HPF (0-2/HPF) Urine WBC 1 /HPF (0-5/HPF) Urine Squamous Epithelial Cells Moderate /LPF (</=FEW) Urine Bacteria Negative /HPF (NONE-FEW) Urine Mucus Few /HPF (NONE-FEW) White Blood Count 5.3 k/uL (4.5-11.0) Red Blood Count 3.68 M/uL (4.00-5.60) Hemoglobin 9.1 g/dL (14.0-18.0) Hematocrit 27.2 % (42.0-52.0) Mean Corpuscular Volume 74.0 fL (80.0-96.0) Mean Corpuscular Hemoglobin 24.8 pg (26.0-33.0) Mean Corpuscular Hemoglobin Concent 33.4 g/dL (32.0-36.0) Red Cell Distribution Width 22.2 % (11.5-14.5) Platelet Count 286 K/uL (150-450) Mean Platelet Volume 8.5 fL (7.2-11.1) Neutrophils (%) (Auto) 83.3 % (39.4-72.5) Lymphocytes (%) (Auto) 12.2 % (17.6-49.6) Monocytes (%) (Auto) 2.3 % (4.1-12.4) Eosinophils (%) (Auto) 1.4 % (0.4-6.7) Basophils (%) (Auto) 0.8 % (0.3-1.4) Nucleated RBC Relative Count (auto) 0.2 /100WBC Neutrophils # (Auto) 4.4 K/uL (2.0-7.4) Lymphocytes # (Auto) 0.6 K/uL (1.3-3.6) Monocytes # (Auto) 0.1 K/uL (0.3-1.0) Eosinophils # (Auto) 0.1 K/uL (0.0-0.5) Basophils # (Auto) 0.0 K/uL (0.0-0.1) Nucleated RBC Absolute Count (auto) 0.01 K/uL Peripheral Blood Smear Yes Y/N Prothrombin Time 13.7 seconds (12.0-14.4) Prothromb Time International Ratio 1.05 Activated Partial Thromboplast Time 31 seconds (23-35) Glomerular Filtration Rate Calc > 60.0 Calcium Level 8.1 mg/dl (8.4-10.2) Total Bilirubin 0.8 mg/dl (0.2-1.3) Aspartate Amino Transf (AST/SGOT) 14 U/L (0-35) Alanine Aminotransferase (ALT/SGPT) 28 U/L (0-56) Alkaline Phosphatase 60 U/L (0-126) C-Reactive Protein 3.5 mg/dl (<1.0) Total Protein 6.4 g/dl (6.3-8.2) Albumin 3.4 g/dl (3.5-5.0) Amylase Level 83 U/L (0-110) Lipase 52 U/L (23-300) Coagulation Test 10/10/17 21:39 Prothrombin Time 13.7 seconds Prothromb Time International Ratio 1.05 Activated Partial Thromboplast Time 31 seconds Urinalysis Test 10/10/17 21:07 Urine Color Yellow Urine Clarity Clear Urine pH 6.0 pH (4.8-9.5) Urine Specific [place] 1.019 Urine Protein Negative mg/dL (NEGATIVE) Urine Glucose (UA) Negative mg/dL (NEGATIVE) Urine Ketones 20 mg/dL (NEGATIVE) Urine Blood Negative (NEGATIVE) Urine Nitrite Negative (NEGATIVE) Urine Bilirubin Negative (NEGATIVE) Urine Urobilinogen Negative mg/dL (0.2-1.9) Urine Leukocyte Esterase Negative (NEGATIVE) Urine RBC None /HPF (0-2/HPF) Urine WBC 1 /HPF (0-5/HPF) Urine Squamous Epithelial Cells Moderate /LPF (</=FEW) Urine Bacteria Negative /HPF (NONE-FEW) Urine Mucus Few /HPF (NONE-FEW) EKG/Imaging Imaging Results: CT scan of the CT abdomen and pelvis with IV contrast was obtained. The results of the study are EXAMINATION: CT abdomen and pelvis with IV contrast HISTORY: Severe abdominal pain. LGIB. Gastric lymphoma. TECHNIQUE: Axial CT images of the abdomen and pelvis were obtained with IV contrast, with coronal and sagittal 2D reconstructed images. One of the following dose optimization techniques was utilized in the performance of this exam: Automated exposure control; adjustment of the mA and/ or kV according to the patient's size; or use of an iterative reconstruction technique. Specific details can be referenced in the facility's radiology CT exam operational policy. Contrast: 75 mL of IV Isovue-370. COMPARISON: 10/04/2017. FINDINGS: Liver: Normal hepatic size and morphology. Stable 1.4 cm cyst in the posterior right hepatic lobe. The hepatic veins and portal veins are patent. Gallbladder and bile ducts: Negative. Spleen: Negative. Pancreas: Negative. Adrenal glands: Negative. Kidneys: Small left renal cysts, measuring up to 1.8 cm. The kidneys enhance normally. No urinary calculi or hydronephrosis. Bowel and peritoneum: There is irregular wall thickening along the lesser curve of the stomach with likely ulceration. Appearance may be compatible with the patient's reported diagnosis of known gastric lymphoma. No new extraluminal gas or fluid. The small bowel and colon are normal in caliber and unremarkable by CT. No other focus of abnormal bowel wall thickening. Normal appendix in the right lower quadrant. No free fluid or free intraperitoneal air. Pelvic structures: Negative. Lymph node assessment: There is a cluster of mildly prominent lymph nodes along the gastrohepatic ligament adjacent to the lesser curve of the stomach measuring up to 1.6 x 1.1 cm. There are additional mildly prominent lymph nodes adjacent to the celiac axis, measuring up to 1.4 x 0.9 cm. Vessels: Negative. Musculoskeletal: Scattered degenerative changes throughout the spine. Mild chronic wedging of the T12 vertebral body. No acute osseous findings. Body wall: Small fat-containing umbilical hernia. Lung bases: Negative. IMPRESSION: 1. There is irregular wall thickening along the lesser curve of the stomach with likely ulceration. Mild adjacent fat stranding along the lesser curve of the stomach. CT appearance may be compatible with the reported diagnosis of known gastric lymphoma. No new extraluminal fluid or air. 2. Stable cluster of mildly prominent lymph nodes along the adjacent gastrohepatic ligament and celiac axis. 3. No other acute intra-abdominal findings. The study was read by the radiologist. I viewed the images myself on the PACS system. ED Course/Re-evaluation Clinical Indication for ER IV: Hydration, IV Access ED Course The patient was admitted to an examination room. H&P was done. The differential diagnoses was considered. On clinical examination. Patient has pre-significant epigastric tenderness. He has known history of gastric lymphoma. I'm concerned with the guarding that he may have perforation. A repeat CT scan with contrast is ordered. Patient's grossly treated for his discomfort with IV fluids Zofran and Dilaudid. The Alexi studies show a stable H&H. It's higher than previously when he received transfusions. Patient 's primary issue seems to be pain control. He'll be discharged home with Dilaudid for pain relief. He is advised to keep his fluid intake up. And follow-up with oncology clinic early next week. Decision to Disposition Date: Oct 10, 2017 Decision to Disposition Time: 22:49 Depart Departure Latest Vital Signs Vital Signs Date Time Temp Pulse Resp B/P (MAP) Pulse Ox O2 Delivery O2 Flow Rate FiO2 10/10/17 23:03 ??? 10/10/17 23:00 ???/??? (1665) 10/10/17 22:48 97 10/10/17 21:09 98.2 20 Room Air Impression: Primary Impression: Abdominal pain Additional Impressions: Gastric ulcer Gastric lymphoma Condition: Improved Disposition: HOME OR SELF-CARE New Scripts Promethazine Hcl (PROMETHAZINE HCL) 25 Mg Tablet 25 MG PO Q4H Y for NAUSEA/VOMITING, #15 TAB Prov: DOLLY RICO DO 10/10/17 Ondansetron (ZOFRAN ODT) 4 Mg Tab.rapdis 4 MG PO Q6H Y for NAUSEA/VOMITING, #15 TAB.GABRIELE Prov: DOLLY RICO DO 10/10/17 Hydromorphone Hcl (DILAUDID) 2 Mg Tablet 1-2 MG PO Q4H Y for PAIN, #15 Prov: DOLLY RICO DO 10/10/17 Patient Instructions: Abdominal Pain (ED) Additional Instructions: Follow-up with Cancer Center early next week Problem Qualifiers Primary Impression: Abdominal pain Abdominal location: epigastric Qualified Codes: R10.13 - Epigastric pain Additional Impressions: Gastric ulcer Gastric ulcer chronicity: unspecified ulcer chronicity Gastric ulcer complication status: unspecified whether hemorrhage or perforation present Qualified Codes: K25.9 - Gastric ulcer, unspecified as acute or chronic, without hemorrhage or perforation DOLLY RICO DO Oct 10, 2017 21:09
[2017-10-10] MEDS ORDERED: NS(*) 0.9% 1000 ML BAG 1,000 ML IV ONE (21:13)
[2017-10-10] MEDS ORDERED: SUCR1ORA17 PO (21:14)
[2017-10-10] MEDS ORDERED: MORPHINE 4 MG/ML SDV IVP ONE (21:15)
[2017-10-10] MEDS ORDERED: ONDANSETRON 4 MG/2 ML VIAL IVP ONE (21:15)
[2017-10-10] MEDS ORDERED: IOPAMIDOL 76% 75 ML INFUS BTL 75 ML ONE (21:29)
[2017-10-10 21:49] LABS: PLATELET COUNT, AUTOMATED 286 K/uL (150-450)
[2017-10-10 21:59] LABS: INR 1.05
[2017-10-10] MEDS ORDERED: HYDROmorphone* 1 MG/ML 1 MG/ML ML IVP ONE (22:20)
--- NOTE | 2017-10-10 22:36 | RADIOLOGY IMAGING REPORT ---
FACILITY: [facility] PATIENT NAME: Yoel Tee : 1960 MR: [id number] V: [id number] EXAM DATE: ORDERING PHYSICIAN: DOLLY RICO TECHNOLOGIST: Location: [facility] Patient: Yoel Tee : 1960 Visit/Account:[id number] Date of Sevice: 10/10/2017 EXAMINATION: CT abdomen and pelvis with IV contrast HISTORY: Severe abdominal pain. LGIB. Gastric lymphoma. TECHNIQUE: Axial CT images of the abdomen and pelvis were obtained with IV contrast, with coronal a nd sagittal 2D reconstructed images. One of the following dose optimization techniques was utilized in the performance of this exam: Autom ated exposure control; adjustment of the mA and/or kV according to the patient's size; or use of an i terative reconstruction technique. Specific details can be referenced in the facility's radiology C T exam operational policy. Contrast: 75 mL of IV Isovue-370. COMPARISON: 10/04/2017. FINDINGS: Liver: Normal hepatic size and morphology. Stable 1.4 cm cyst in the posterior right hepatic lobe. T he hepatic veins and portal veins are patent. Gallbladder and bile ducts: Negative. Spleen: Negative. Pancreas: Negative. Adrenal glands: Negative. Kidneys: Small left renal cysts, measuring up to 1.8 cm. The kidneys enhance normally. No urinary ca lculi or hydronephrosis. Bowel and peritoneum: There is irregular wall thickening along the lesser curve of the stomach with likely ulceration. Appearance may be compatible with the patient's reported diagnosis of known gastri c lymphoma. No new extraluminal gas or fluid. The small bowel and colon are normal in caliber and unremarkable by CT. No other focus of abnormal carmine wel wall thickening. Normal appendix in the right lower quadrant. No free fluid or free intraperitone al air. Pelvic structures: Negative. Lymph node assessment: There is a cluster of mildly prominent lymph nodes along the gastrohepatic li gament adjacent to the lesser curve of the stomach measuring up to 1.6 x 1.1 cm. There are additional mildly prominent lymph nodes adjacent to the celiac axis, measuring up to 1.4 x 0.9 cm. Vessels: Negative. Musculoskeletal: Scattered degenerative changes throughout the spine. Mild chronic wedging of the T 12 vertebral body. No acute osseous findings. Body wall: Small fat-containing umbilical hernia. Lung bases: Negative. IMPRESSION: 1. There is irregular wall thickening along the lesser curve of the stomach with likely ulceration. M ild adjacent fat stranding along the lesser curve of the stomach. CT appearance may be compatible wit h the reported diagnosis of known gastric lymphoma. No new extraluminal fluid or air. 2. Stable cluster of mildly prominent lymph nodes along the adjacent gastrohepatic ligament and javan c axis. 3. No other acute intra-abdominal findings. Findings were discussed with DOLLY RICO at 10/10/2017 10:29 PM. Report Dictated By: Richie Ward MD at 10/10/2017 10:18 PM Report E-Signed By: Richie Ward MD at 10/10/2017 10:33 PM WSN:[id number]
[2017-10-10] MEDS ORDERED: HYDROmorphone 2 MG TAB TH 2 TAB/BOTTLE PO ONE (22:50)
[2017-10-10] MEDS ORDERED: ONDANSETRON 4 MG ODT TH SL ONE (22:50)
[2017-10-10] MEDS ORDERED: PROMETHAZINE HCL 25 MG TAB TH 2 TAB/BOTTLE PO ONE (22:50)
[2017-10-10] MEDS ORDERED: PROM-110 PO (22:51)
[2017-10-10] MEDS ORDERED: ONDA4TAB PO (22:51)
[2017-10-10] MEDS ORDERED: HYDR2TAB74 PO (22:51)
== END 2017-10-10 23:09 | disposition home or self-care (01) ==
LOC: ER 21:21
DX: K25.9 Gastric ulcer, unspecified as acute or chronic, without hemorrhage or perforation (principal); C85.99 Non-Hodgkin lymphoma, unspecified, extranodal and solid organ sites
CPT/HCPCS: 74177; 81001; 82150; 83690; 85025; 85610; 85730; 86140; 96361; 96374; 96375; 99284; A9270; J1170; J2270; J2405; J7030; Q9967; S0119; 82040; 82247; 82310; 82374; 82435; 82565; 82947; 84075; 84132; 84155; 84295; 84450; 84460; 84520

== ENCOUNTER → 2017-10-14 | Outpatient (CLI) | payer OTHER ==
[2017-10-05 10:07] VITALS: BMI 30.9
[~2017-10-14] MED LIST changes: +HYDR2TAB74 PO; +ONDA4TAB PO; +PROM-110 PO; +SUCR1ORA17 PO
[2017-10-14 07:42] LABS: PLATELET COUNT, AUTOMATED 307 K/uL (150-450)
== END ==
LOC: LAB 07:02
PROVIDERS: ATTEND Internal Medicine Hematology
DX: C88.4 Extranodal marginal zone B-cell lymphoma of mucosa-associated lymphoid tissue [MALT-lymphoma] (principal)
CPT/HCPCS: 36415; 82040; 82247; 82310; 82374; 82435; 82565; 82947; 84075; 84132; 84155; 84295; 84450; 84460; 84520; 85025

== ENCOUNTER → 2017-11-06 | Outpatient (CLI) | payer OTHER ==
[2017-10-05 10:07] VITALS: BMI 30.9
[2017-11-06 07:11] LABS: PLATELET COUNT, AUTOMATED 217 K/uL (150-450)
== END ==
LOC: LAB 06:39
PROVIDERS: ATTEND Internal Medicine Hematology
DX: C88.4 Extranodal marginal zone B-cell lymphoma of mucosa-associated lymphoid tissue [MALT-lymphoma] (principal)
CPT/HCPCS: 36415; 82040; 82247; 82310; 82374; 82435; 82565; 82947; 84075; 84132; 84155; 84295; 84450; 84460; 84520; 85025

== ENCOUNTER 2017-11-13 08:17 | Outpatient (RCR) | payer OTHER ==
[2017-09-03 15:01] VITALS: BP 153/101
[2017-09-03 16:16] LABS: PLATELET COUNT, AUTOMATED 342 K/uL (150-450)
--- NOTE | 2017-09-03 20:36 | ONCOLOGY CONSULTATION ---
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 HISTORY OF PRESENT ILLNESS Patient is a 57-year-old male who presents with daily, at least two times per day, epigastric pain and fullness immediately followed by retrosternal to right- sided pressure followed immediately by sensation that he needs to have a bowel movement. He has mild if any sensation of the need to belch. He takes Pepcid AC and symptoms resolve over 15-30 minutes. He has also intermittent early satiety and postprandial bloating. Denies any dysphagia, dyspepsia, pyrosis or sore throat. He has also perioral swelling with any of the PPIs. He had a history of GI bleed April 2016, and EGD and colonoscopy done by Dr. Coates showed ulcers. Unsure if esophageal or gastric. He had persistent rectal bleeding and required transfusions. He had EGD with cautery. He took PPIs for three to four weeks and he developed again the oral swelling and stopped the treatment. He had recurrent upper GI bleeding February 2017, saw Dr. Coates , and early March 2017 with EGD report demonstrating an ulcer, unsure if gastric or esophageal. Patient saw Dr. Pope, who did an EGD and colonoscopy on August 12, 2017. EGD showed ulcers in the stomach body over the angularis and in the stomach body and in the fundus of the stomach, and in the whole stomach. He had also erosion at the cardia and 1-2 cm salmon-colored mucosa extending above the most proximal gastric fold, but the esophagus appeared normal and the patient had biopsies of all these masses. 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 The B cell lymphoma involving extensively all the fragments of gastric mucosa included in the sample. Consists of high grade B cell lymphoma with germinal center immunophenotype and a proliferation index of 100%. The high grade lymphoma included 25% of the total area involvement, while the low grade B cell lymphoma included 75% with diffuse growth pattern. Differential diagnosis of the low grade lymphoma mainly follicular lymphoma and MALT lymphoma. His colonoscopy showed internal hemorrhoids with moderate diverticulosis of the mid descending colon and sigmoid colon. PAST MEDICAL HISTORY 1. Hypertension. 2. GERD. 3. Upper GI bleeding. 4. Gastric ulcer. PAST SURGICAL HISTORY 1. Tonsillectomy and adenoidectomy. 2. Appendectomy. 3. Right foot surgery. FAMILY HISTORY Father had prostate cancer. Paternal grandfather with some sort of cancer , he does not know the type. SOCIAL HISTORY Patient is with two children. 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 He is a never smoker. He drinks rarely. Denies any abuse of illicit drugs. CURRENT MEDICATIONS Pepcid AC p.r.n. for his GI symptoms. ALLERGIES PPIs which cause oral swelling. REVIEW OF SYSTEMS CONSTITUTIONAL: No appetite or weight change. No fever, chills or sweating. No recent infection. HEENT: Ears: No tinnitus or hearing problem. Nose: No nasal discharge or epistaxis. Throat: No sore throat or mouth ulcers. Eyes: No diplopia or visual changes. RESPIRATORY: No shortness of breath. No cough, expectoration or hemoptysis. CARDIOVASCULAR: No chest pain, orthopnea, or paroxysmal nocturnal dyspnea (PND) . No edema. No palpitations. GASTROINTESTINAL: No nausea or vomiting. No diarrhea or constipation. No change in bowel movements. No heartburn or swallowing difficulties. Patient has epigastric pain radiating to mid sternal pain as mentioned in the oncology history. Other than that he is doing fine. No jaundice. No hematemesis, melena or rectal bleeding. GENITOURINARY: No hematuria or dysuria. MUSCULOSKELETAL: No pain in the muscles, joints or bones. NEUROLOGICAL: No tingling or numbness in the hands or feet. No headaches or convulsions. HEMATOLOGIC/LYMPHATIC: No bleeding or easy bruising. No weakness or fatigue. No enlarged lymph nodes. SKIN: No skin rash or lumps. PSYCHIATRIC: No anxiety or depression. PHYSICAL EXAMINATION GENERAL: Looks stable. Well-developed, well-nourished, and in no acute distress. VITAL SIGNS: Blood pressure 153/101, pulse 84 per minute, respirations 16 per minute, temperature 96.4, pulse ox 99% on room air. HEENT: Head: Atraumatic. No sinus tenderness to palpation. Eyes: No icterus or conjunctivitis. Mouth and Throat: No oral thrush or mucositis. NECK: Supple. No cervical or supraclavicular lymphadenopathy. LUNGS: Clear to auscultation and percussion bilaterally. HEART: Regular rate and rhythm. No gallops, murmurs, clicks or rubs. ABDOMEN: Soft and lax. No tenderness. No hepatosplenomegaly. No masses. EXTREMITIES: No cyanosis, clubbing or edema. LYMPHATICS: No peripheral lymphadenopathy. NEUROLOGICAL: Conscious, alert and oriented times three. No focal motor or sensory deficits. PSYCHIATRIC: Mood and affect appear normal. SKIN: No skin rash, bruise or purpuric eruption. 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 I am planning to do staging workup with PET/CT scan and bone marrow aspiration biopsy. I am planning also to refer the patient to Dr. Oakley for placement of central port. As the patient has B cell lymphoma he will be eligible for treatment with rituximab, and for this reason I am planning to check for hepatitis serology for hepatitis B and hepatitis C serology. As the patient could require treatment with CHOP chemotherapy, I am planning to get an echocardiogram for evaluation of left ventricular ejection fraction. I am planning also to check his CBC, chem panel, LDH, uric acid. I will see him after the above to decide about further management. If the patient will have only localized lymphoma in the stomach, then I will treat him with four cycles of R-CHOP to be followed by consolidation radiation therapy. But if the patient will have stage III or IV lymphoma then treatment will be with six to eight cycles of R-CHOP. I explained that to the patient and he is agreeable with the plan of management. PLAN 1. PET/CT scan scan. 2. Bone marrow aspiration biopsy. 3. Dr. Oakley for placement of central port. 4. Echocardiogram for left ventricular ejection fraction. 5. CBC, chem panel, LDH, uric acid. 6. Hepatitis serology for hepatitis B and C. 7. Patient to return after the above for further evaluation and management. 8. Consider treatment with six to eight cycles of R-CHOP if the patient will prove to have stage III or IV lymphoma. 9. Consider four cycles of R-CHOP to be followed by consolidation radiation therapy if the patient will prove to have only localized lymphoma of the stomach. 10. Patient to contact us for any new concerns or complaints. 11. Patient to return after the above for further evaluation and management. MTDD
[2017-09-25 12:05] VITALS: BP 136/85
--- NOTE | 2017-09-25 16:16 | ONCOLOGY FOLLOW UP NOTE ---
EVENT DATE: September 25, 2017 DIAGNOSIS Gastric lymphoma. CHIEF COMPLAINT Patient is here today for followup of his gastric lymphoma. ONCOLOGY HISTORY Patient is a 57-year-old male who presents with daily, at least two times per day, epigastric pain and fullness immediately followed by retrosternal to right- sided pressure followed immediately by sensation that he needs to have a bowel movement. He has mild if any sensation of the need to belch. He takes Pepcid AC and symptoms resolve over 15-30 minutes. He has also intermittent early satiety and postprandial bloating. Denies any dysphagia, dyspepsia, pyrosis or sore throat. He has also perioral swelling with any of the PPIs. He had a history of GI bleed April 2016, and EGD and colonoscopy done by Dr. Coates showed ulcers. Unsure if esophageal or gastric. He had persistent rectal bleeding and required transfusions. He had EGD with cautery. He took PPIs for three to four weeks and he developed again the oral swelling and stopped the treatment. He had recurrent upper GI bleeding February 2017, saw Dr. Coates , and early March 2017 with EGD report demonstrating an ulcer, unsure if gastric or esophageal. Patient saw Dr. Pope, who did an EGD and colonoscopy on August 12, 2017. EGD showed ulcers in the stomach body over the angularis and in the stomach body and in the fundus of the stomach, and in the whole stomach. He had also erosion at the cardia and 1-2 cm salmon-colored mucosa extending above the most proximal gastric fold, but the esophagus appeared normal and the patient had biopsies of all these masses. 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 The B cell lymphoma involving extensively all the fragments of gastric mucosa included in the sample. Consists of high grade B cell lymphoma with germinal center immunophenotype and a proliferation index of 100%. The high grade lymphoma included 25% of the total area involvement, while the low grade B cell lymphoma included 75% with diffuse growth pattern. Differential diagnosis of the low grade lymphoma mainly follicular lymphoma and MALT lymphoma. His colonoscopy showed internal hemorrhoids with moderate diverticulosis of the mid descending colon and sigmoid colon. Patient had a PET CT scan done on September 24, 2017 which showed a small lymph node 7 mm in size along the greater curvature of the stomach with SUV 6.22. There are some other lymph nodes along the lesser curvature of the stomach and the kei-celiac artery area, but they were PET negative and those lymph nodes were 8 mm in size. Bone marrow aspiration biopsy done on September 17, 2017 was negative for lymphomatous involvement. HISTORY OF PRESENT ILLNESS Patient is here today for followup of his gastric lymphoma. He is doing fine currently. He has some exertional shortness of breath and he has some generalized aches, but other than that he is doing very well. PAST MEDICAL HISTORY 1. Hypertension. 2. GERD. 3. Upper GI bleeding. 4. Gastric ulcer. PAST SURGICAL HISTORY 1. Tonsillectomy and adenoidectomy. 2. Appendectomy. 3. Right foot surgery. FAMILY HISTORY Father had prostate cancer. Paternal grandfather with some sort of cancer , he does not know the type. SOCIAL HISTORY Patient is with two children. 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 He is a never smoker. He drinks rarely. Denies any abuse of illicit drugs. CURRENT MEDICATIONS Pepcid AC p.r.n. for his GI symptoms. ALLERGIES PPIs which cause oral swelling. REVIEW OF SYSTEMS CONSTITUTIONAL: No appetite or weight change. No fever, chills or sweating. No recent infection. HEENT: Ears: No tinnitus or hearing problem. Nose: No nasal discharge or epistaxis. Throat: No sore throat or mouth ulcers. Eyes: No diplopia or visual changes. RESPIRATORY: He has exertional shortness of breath. No cough, expectoration or hemoptysis. CARDIOVASCULAR: No chest pain, orthopnea, or paroxysmal nocturnal dyspnea (PND) . No edema. No palpitations. GASTROINTESTINAL: No nausea or vomiting. No diarrhea or constipation. No change in bowel movements. No heartburn or swallowing difficulties. Patient has epigastric pain radiating to mid sternal pain as mentioned in the oncology history. Other than that he is doing fine. No jaundice. No hematemesis, melena or rectal bleeding. GENITOURINARY: No hematuria or dysuria. MUSCULOSKELETAL: He has generalized aches. NEUROLOGICAL: No tingling or numbness in the hands or feet. No headaches or convulsions. HEMATOLOGIC/LYMPHATIC: No bleeding or easy bruising. No weakness or fatigue. No enlarged lymph nodes. SKIN: No skin rash or lumps. PSYCHIATRIC: No anxiety or depression. PHYSICAL EXAMINATION GENERAL: Looks stable. Well-developed, well-nourished, and in no acute distress. VITAL SIGNS: Blood pressure 136/87, pulse 85 per minute, respirations 16 per minute, temperature 96.5, pulse ox 98% on room air. HEENT: Head: Atraumatic. No sinus tenderness to palpation. Eyes: No icterus or conjunctivitis. Mouth and Throat: No oral thrush or mucositis. NECK: Supple. No cervical or supraclavicular lymphadenopathy. LUNGS: Clear to auscultation and percussion bilaterally. HEART: Regular rate and rhythm. No gallops, murmurs, clicks or rubs. ABDOMEN: Soft and lax. No tenderness. No hepatosplenomegaly. No masses. EXTREMITIES: No cyanosis, clubbing or edema. LYMPHATICS: No peripheral lymphadenopathy. NEUROLOGICAL: Conscious, alert and oriented times three. No focal motor or sensory deficits. PSYCHIATRIC: Mood and affect appear normal. SKIN: No skin rash, bruise or purpuric eruption. DIAGNOSTIC DATA Echocardiogram was September 17, 2017 showed normal left ventricular ejection fraction at 62% to 65%. CBC showed white count 7.5, hemoglobin 11, hematocrit 35.2, platelets 304,000. Chem panel is totally normal. LDH is normal at 462, uric acid is normal at 6.3. Hepatitis B surface antigen, hepatitis B core antibody and hepatitis C antibody all came back negative. PET scan done on September 24, 2017 showed one lymph node 7 mm along the greater curvature of the stomach with SUV 6.22. There are some other lymph nodes 8 mm in size along the lesser curvature and the kei-celiac artery area, but they are not PET positive. Bone marrow aspiration biopsy done on September 17, 2017 was negative for lymphomatous involvement. ASSESSMENT Gastric lymphoma with both high grade and low grade components of B-cell lymphoma. PET CT scan showed only besides the gastric mass, a 7 mm lymph node along the greater curvature of the stomach with SUV 6.22. There are some other lymph nodes along the lesser curvature and the kei-celiac artery region 8 mm in size, but without PET activity. Bone marrow aspiration biopsy done on August was negative for lymphomatous involvement. I talked to the patient about the plan of management. His left ventricular ejection fraction by 2-D echocardiogram done on September 17, 2017 was normal at 60% to 65%. Hepatitis B and C serology came back negative. I am planning to treat him with four cycles of R -CHOP to be followed by consolidation radiation therapy. I spent a long time with the patient explaining the plan of management, side effects expected from chemotherapy, and I answered all his questions to his satisfaction today. Patient would like to start treatment on September 30, 2017. I am planning to see him three weeks after that with CBC, chem panel, LDH, uric acid. Patient will receive Neulasta 6 mg subcutaneously after each cycle chemotherapy. CBC, chem panel, uric acid will be checked on a weekly basis after he will start chemotherapy. PLAN 1. Chemotherapy with R-CHOP to start on September. 2. CBC, chem panel, LDH, uric acid to be checked weekly. 3. Patient to return in four weeks from now with CBC, chem panel, LDH, uric acid. 4. Neulasta 6 mg subcutaneously after chemotherapy. 5. Patient to contact us for any new concerns or complaints. MTDD
[2017-10-02 09:06] VITALS: BP 130/97
[2017-10-02] MEDS: ACETAMINOPHEN 325 MG TAB PO PRN (10:19)
[2017-10-02] MEDS: PALONOSETRON 0.25 MG/5 ML VIAL IVP PRN (10:20)
[2017-10-02] MEDS: FOSAPREPITANT DIM 150 MG/5 ML 150 MG in NS(*) 0.9% 250 ML BAG 245 ML IVPB PRN (10:58)
[2017-10-05 10:07] VITALS: Ht 182.2 cm; Wt 96.9 kg
[2017-10-08 09:36] LABS: PLATELET COUNT, AUTOMATED 272 K/uL (150-450)
[2017-10-09 08:21] VITALS: BP 128/94
[2017-10-09] MEDS: NS(*) 0.9% 500 ML BAG 500 ML IV PRN (08:30)
[2017-10-09] MEDS: ACETAMINOPHEN 325 MG TAB PO PRN (09:44)
[2017-10-09 10:14] VITALS: BP 120/69
[2017-10-09 10:28] VITALS: BP 123/75
[2017-10-09 12:43] VITALS: BP 118/80
[2017-10-09 12:56] VITALS: BP 116/82
[2017-10-09 14:46] VITALS: BP 144/83
[2017-10-09] MEDS: HEPARIN FLSH (PORT) 500 UN/5ML IVP PRN (16:30)
--- NOTE | 2017-10-09 18:32 | Oncology Note ---
Mr. 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 Patient started treatment R- CHOP on September 30, 2017. patient was seen at infusion room as he he was getting PRBC blood transfusion for a symptomatic hgb of 8. he reports profound fatigue, and constipation. Patient was recently hospitalized at [facility]. for low Hgb for which he also received blood transfusion. . PET CT scan showed only besides the gastric mass, a 7 mm lymph node along the greater curvature of the stomach with SUV 6.22. There are some other lymph nodes along the lesser curvature and the kei-celiac artery region 8 mm in size , but without PET activity. Bone marrow aspiration biopsy done on September 17, 2017 was negative for lymphomatous involvement. I talked to the patient about the plan of management. His left ventricular ejection fraction by 2-D echocardiogram done on September 17, 2017 was normal at 60% to 65%. Hepatitis B and C serology came back negative. I am planning to treat him with four cycles of R -CHOP to be followed by consolidation radiation therapy. I spent a long time with the patient explaining the plan of management, side effects expected from chemotherapy, and I answered all his questions to his satisfaction today. ROS: unremarkable except for HPI Physical exam, positive findings addressed on treatment martin. AOX3. in no acute distressed. ASSESSMENT & PLAN 1. Hypokalemia (K3.3) replete with potassium chloride 20meq Iv x1 now 2. Add Mg to lab 3. Constipation: colace, senna, Miralax to take as prescribed. extensive teaching and instructions provided to patient. reports understanding of instructions, to hold stool softeners if having more than 3 BMs per day. 4. Hx of gastric ulcers, sensitivity reaction to pepcid and Protonix. Carafate 10Ml QID Rx. take 1 hour before alondra and at bedtime. 5. patient to conserve energy and refrain from strenous activities. 6.patient to call clinic on Thursday to report on status of constipation, and fatigue 7. patient to immediately go to thr Er if SOB, palpitations, active bleeding. 8.Chemotherapy with R-CHOP to start on September. 9. CBC, chem panel, LDH, uric acid to be checked weekly. 10. Patient to return in four weeks from now with CBC, chem panel, LDH, uric acid. 11. Neulasta 6 mg subcutaneously after each chemotherapy. 12. f/u with MD/ABBEY on 10/15/17 aprox 13. Patient to contact us for any new concerns or complaints. TIME SPENT: 20 minutes >15 minutes incudes but not limited to discussion, counselling and co-ordination~ of care. Discussion with other health care providers, record review, review of lab work, diagnostic tests. Plan discussed extensively with patient. All the questions answered today. Thank you for the opportunity to be involved in the care of . Billing Level: 3 return visit LESLY JACOME, ONC Oct 09, 2017 18:32
[2017-10-14 08:18] VITALS: BP 113/73
--- NOTE | 2017-10-14 11:52 | Oncology Progress Note ---
History of Present Illness Evaluation Evaluation Date: Oct 14, 2017 Evaluation Time: 09:00 Accompanied by Accompanied by: Self Last seen by : Karl Chief Complaint Chief Complaint: F/u Gastric Lymphoma management Oncology History Oncology History: 05/07/16 Gastric ulcer that bled . EGD and colonoscopy done by Dr. Coates showed ulcers. biopsies taken and no malignancy identified. positive for h. pylori. pt discharged on antibiotics and carafate and protonix. pt noticed dark stools. return to ER and PRBCs were transfused.He had EGD with cautery. February 2017 He had recurrent upper GI bleeding March [address] Coates, and early with EGD report demonstrating an ulcer, unsure if gastric or esophageal. August 12, [address] Pope, who did an EGD and colonoscopy EGD showed ulcers in the stomach body over the angularis and in the stomach body and in the fundus of the stomach, and in the whole stomach. He had also erosion at the cardia and 1-2 cm salmon-colored mucosa extending above the most proximal gastric fold, but the esophagus appeared normal and the patient had biopsies of all these masses. 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 September 03, 2017 He had EGD with cautery. He took PPIs for three to four weeks and he developed again the oral swelling and stopped the treatment. Sep 10 2017 PET/CT scan scan. 2. Bone marrow aspiration biopsy. 3. Dr. Oakley for placement of central port. 4. Echocardiogram for left ventricular ejection fraction. 5. CBC, chem panel, LDH, uric acid. 6. Hepatitis serology for hepatitis B and C. 7. Patient to return after the above for further evaluation and management. 8. Consider treatment with six to eight cycles of R-CHOP if the patient will prove to have stage III or IV lymphoma. 9. Consider four cycles of R-CHOP to be followed by consolidation radiation therapy if the patient will prove to have only localized lymphoma of the stomach. Bone marrow aspiration biopsy done on September 17, 2017 was negative for lymphomatous involvement. Echocardiogram was September 17, 2017 showed normal left ventricular ejection fraction at 62% to 65% Treatment Treatment: R-CHOP started on 09/30/2017. per patient he had a thorat swelling with the rituxan. Consider four cycles of R-CHOP to be followed by consolidation radiation therapy if the patient will prove to have only localized lymphoma of the stomach.. HPI HPI: Mr. 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 Patient started treatment with R-CHOP on September 30, 2017. Patient had a f/u appointment for 10/15/17 but he showed up at the [facility] becue he has to work tomorrow. Patient was seen, he reports feeling better, denies abdominal pain, chest pain, SOb, no colds , no fevers at home. Denies any dysphagia, dyspepsia, pyrosis or sore throat. minimal apetitie change. He was able to have BMs after starting stool sofnetrs on thursday. Patient is s/p 4 units of PRBC last week 2 inpatient [facility] at 2 units at the [facility] center on 10/09/17. hgb today is 8.[address] scan showed only besides the gastric mass, a 7 mm lymph node along the greater curvature of the stomach with SUV 6.22. There are some other lymph nodes along the lesser curvature and the kei-celiac artery region 8 mm in size, but without PET activity. Bone marrow aspiration biopsy done on September 17, 2017 was negative for lymphomatous involvement. I talked to the patient about the plan of management. His left ventricular ejection fraction by 2-D echocardiogram done on September 17, 2017 was normal at 60% to 65%. Hepatitis B and C serology came back negative. planning to treat him with four cycles of R-CHOP to be followed by consolidation radiation therapy. PAST MEDICAL HISTORY 1. Hypertension. 2. GERD. 3. Upper GI bleeding. 4. Gastric ulcer. PAST SURGICAL HISTORY 1. Tonsillectomy and adenoidectomy. 2. Appendectomy. 3. Right foot surgery. 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 And supportive of him. [facility] Patient History: FH: colon cancer Paternal GF FH: prostate cancer FATHER (prostate cancer) Social/Occupational History Social History: Social History This is a 57 Yr old White male, he is S Single and has [] Children Hx Smoking: No Smoking Status: Never Smoker Exposure to Second Hand Smoke?: No Allergies & Medications Allergies: Coded Allergies: pantoprazole (Verified Allergy, Severe, oral swelling, 10/10/17) ranitidine (Verified Allergy, Severe, facial swelling, 10/10/17) famotidine (Verified Allergy, Intermediate, LIPS AND TONGUE SWELL, 10/10/17 ) Home Meds Active Scripts Promethazine Hcl (PROMETHAZINE HCL) 25 Mg Tablet, 25 MG PO Q4H Y for NAUSEA/ VOMITING, #15 TAB Prov:DOLLY RICO DO 10/10/17 Ondansetron (ZOFRAN ODT) 4 Mg Tab.rapdis, 4 MG PO Q6H Y for NAUSEA/VOMITING, # 15 TAB.GABRIELE Prov:DOLLY RICO DO 10/10/17 Hydromorphone Hcl (DILAUDID) 2 Mg Tablet, 1-2 MG PO Q4H Y for PAIN, #15 Prov:DOLLY RICO DO 10/10/17 Potassium Chloride (POTASSIUM CHLORIDE) 10 Meq Tablet.er, 10 MEQ PO BID, #14 TAB 1 Refill Take with food Prov:THANG BUSTAMANTE MD 10/05/17 Prednisone (PREDNISONE) 20 Mg Tablet, 100 MG PO QDAY for 1 Day, #5 TAB This is to finish the 5 days following first round of chemotherapy. Prov:THANG BUSTAMANTE MD 10/05/17 Reported Medications Sucralfate (CARAFATE) 1 Gm/10 Ml Oral.susp, 1 GM PO 10/10/17 Review of Systems Constitution: Positive for Appetite/Weight Change (minimal), Denies Fever/ Chills/Sweating, Denies Recent Infection, Denies Other HEENT: No EARS: Tinnitus, No NOSE: Nasal Discharge, No THROAT: Sore Throat, No EYES: Dipolpia, No EARS: Hearing Problems, No NOSE: Epistaxis, No THROAT: Mouth Ulcers, No EYES: Vision Change, No OTHER Respiratory: No Cough, No Expectoration, No Hemoptysis, No Shortness of Breath , No OTHER Cardiovascular: No Chest Pain, No Orthopnea, No Edema, No Palpitations, No OTHER Gastrointestinal: Abdominal Pain, Other (Dark tarry stools) Gentiourinary: No Hematuria, No Dysuria, No Nocturia, No Other Musculoskeletal: No Muscle Pain, No Joint Pain, No Bone Pain, No Other Hematological: No Bleeding, No Weakness, No Enlarged Lyph Nodes, No Bruising, No Fatigue, No Other Skin: No Skin Rash, No Lumps, No Erythema, No Dry Skin, No Moist Skin, No Other Psychiatric: No Anxiety, No Depression, No Other Vital Signs Vital Signs Temperature: 97.2 Pulse: 89 BP Systolic: 113 BP Diastolic: 73 Respiratory Rate: 16 O2 SAT: 98 O2 Delivery: Height (feet) Height (inches) 71.75 Weight lb: 241 Weight oz: 5.0 Weight Kg (Gideon): Pain: 2 Physical Exam General: Looks Stable HEENT: HEAD:Atraumatic Neck: Supple Lungs: Clear to Auscultation Heart: Regular Rate and Rhythm Abdomen: Soft and Nontender Extremities: No Cyanosis, No Clubbing, No Edema, No Other Lymphatics: No Peripheral Lymphadenopathy, No Other Psychiatric: Mood appears normal, Affect appears normal Skin: No Skin Rashes, No Bruising, No Purpura, No Moist Desquamation, No Dry Desquamation, No Errythema, No Mild Errythema, No Moderate Errythema, No Severe Errythema, No Induration, No Other Breast: No No Masses, No No Nipple Discharge, No No Skin Changes, No Other Assessment Assessment: Mr. 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 Patient started treatment with R-CHOP on September 30, 2017. CHRONIC Hypertension managed on 2. GERD. 3. Upper GI bleeding. 4. Gastric ulcer. 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 Patient started treatment with R-CHOP on September 30, 2017 1. Hypokalemia (K3.4) Potassium chloride 10mEq PO Rx callled in x 10 days. will monitor K+ labs. will continue to monotr and replete lytes as needed. 2. Neutropenia; ANC is 0.6; WBC is 1.5 today. Initiate Levaquin 500mg POx10 days, Acyclovir 400mg PoBID#30 days. Will montor counts closely. Neutropenic precautions teaching provided to patient as well as mask provided, for patient to wear while he is exposed to visitors. 3. Constipation: resolving he reports having dark tarry stools BM daily since Thursday. Continue to take colace, senna as prescribed. extensive teaching and instructionsreinforced patient to hold stool softeners if having more than 3 BMs per day. 4. Hx of gastric ulcers, sensitivity reaction to pepcid and Protonix. patient to continue taking Carafate 10mLQID Rx. take 1 hour before alondra and at bedtime. Patient reports that he has been taking Dilaudid 1mg Po at bedtime for his gastric ulcer pain. teaching reinforced for him to continnue to take stool softners. 5. Patient to conserve energy and refrain from strenous activities. extensive energy conservation teaching reinforced, such as ordering groceries online and picking up at [employer], or hme delivery 6. Anemia today Hb is 8.9: disease and chemo induced anemia, Patient received a total of 4 units PRBC between 10/03-10/09/17. He is asymptomatic, and hemodinamically stable at present time. He reports feeling better, having more energy and that he has been implementing the energy conservation strategies provided. Anticipating blood product transfussion support as clinically indicated. 7. f/u with MD/ABBEY on 10/23/17 8.Chemotherapy next round due on September. Given the reaction to Rituxan will discuss with Dr. Barajas on Tx plan. 9. CBC, chem panel, LDH, uric acid, MAgnesium, Phosphorus to be checked weekly. 10. Patient to return in four weeks from now with above weekly labs drawn. 11. Recommend [facility] afer each chemotherapy. 12. Patient RTC on Thursday10/19/17 for labs CBC,CMP, Magnesium. 13. Health care proxy designated today form in chart for his son Mr. Jhonny Tee Patient to contact us for any new concerns or complaints. Patient to immediately go to thr ER if SOB, palpitations, active bleeding, fevers. TIME SPENT: 25 minutes >20 minutes incudes but not limited to discussion, counselling and co-ordination~ of care. Discussion with other health care providers, record review, review of lab work, diagnostic tests. Plan discussed extensively with patient. All the questions answered today. Thank you for the opportunity to be involved in the care of Mr. Elizabeth Tee Billing Level: 4 return visit CC Copies to: MARY GRULLON MD-LESLY HOBBS-Jethro, ONC Oct 14, 2017 11:51
[2017-10-23 08:23] VITALS: BP 119/70
[2017-10-23] MEDS: NS(*) 0.9% 500 ML BAG 500 ML IV PRN (09:00)
[2017-10-23] MEDS: ACETAMINOPHEN 325 MG TAB PO PRN (10:02)
[2017-10-23] MEDS: diphenhydrAMINE 50 MG/ML VIAL IVP PRN ×2 (10:05→10:36)
[2017-10-23] MEDS: PALONOSETRON 0.25 MG/5 ML VIAL IVP PRN (10:06)
[2017-10-23] MEDS: methylPREDNIS SUCC 125 MG/2ML IVP PRN (10:06)
[2017-10-23] MEDS: FOSAPREPITANT DIM 150 MG/5 ML 150 MG in NS(*) 0.9% 250 ML BAG 245 ML IVPB PRN (10:37)
--- NOTE | 2017-10-23 16:29 | Medical Nutrition Therapy ---
Nutrition Anthropometrics Height (Inches): 71.75 Height (Calculated Centimeters: 182.2450 Weight (Pounds): 223 (pt states weight one month ago was 240 lbs) BMI: 30.5 Hx Weight Loss: Yes (patient has lost ~18 lbs since starting treatment, patient states he had a 40lb intentional weight loss last Fall) Nutritional Diagnosis Nutritional Risk Acuity 2: Head/Neck/GI Cancer Nutritional Acuity: 2-Moderate Energy Requirement: 2800 Protein Requirement: 85 Fluid Requirement: 2500 Nutritional Education Nutrition Education Topic: Other (nutrition during cancer treatment ) Learning Readiness: Interested Teaching Methods: Discussion, Handout Response to Teaching: Verbalize understanding Teaching Recipient: Patient Nutrition Counseling: Reviewed handout on Eating During Cancer Treatment, discussed potential nutrition impact symptoms and encouraged patient to review information if experiencing any of the symptoms. Encourage patient to call or let RN know if he would like to discuss any nutrition issues with me. Nutrition Monitoring & Eval Nutrition Goals: Eat 90-100% Meal, Drink > 2 liters/day Nutritional Goals Comment: encouraged adequate po intake and fluids, minimize wt loss Nutrition Monitoring: Patient states his appetite is good/fair, eating normal foods but less than normal amount, feels full quickly, he has had issues with constipation but has resolved, he states he has been told to slow down on his activity and to not eat certain fruits and vegetables d/t decreased immune system RD Patient Assessment Time: [address] Assessment Type: RD Education Patient Nutrition Acuity: 2-Moderate Nutritional Comment: I will continue to monitor nutrition status and provide education as needed for nutrition impact symptoms STEFAN HAMILTON RDN, ISELA Oct 23, 2017 16:29
--- NOTE | 2017-10-23 17:08 | Oncology Progress Note ---
History of Present Illness Evaluation Evaluation Date: Oct 23, 2017 Evaluation Time: 09:30 Accompanied by Accompanied by: Self Last seen by : Karl Chief Complaint Chief Complaint: F/u Gastric Lymphoma management cycle 2 of [facility] Oncology History Oncology History: 05/07/16 Gastric ulcer that bled . EGD and colonoscopy done by Dr. Coates showed ulcers. biopsies taken and no malignancy identified. positive for h. pylori. pt discharged on antibiotics and carafate and protonix. pt noticed dark stools. return to ER and PRBCs were transfused.He had EGD with cautery. February 2017 He had recurrent upper GI bleeding March [address] Coates, and early with EGD report demonstrating an ulcer, unsure if gastric or esophageal. August 12, [address] Pope, who did an EGD and colonoscopy EGD showed ulcers in the stomach body over the angularis and in the stomach body and in the fundus of the stomach, and in the whole stomach. He had also erosion at the cardia and 1-2 cm salmon-colored mucosa extending above the most proximal gastric fold, but the esophagus appeared normal and the patient had biopsies of all these masses. 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 September 03, 2017 He had EGD with cautery. He took PPIs for three to four weeks and he developed again the oral swelling and stopped the treatment. Sep 10 2017 PET/CT scan scan. 2. Bone marrow aspiration biopsy. 3. Dr. Oakley for placement of central port. 4. Echocardiogram for left ventricular ejection fraction. 5. CBC, chem panel, LDH, uric acid. 6. Hepatitis serology for hepatitis B and C. 7. Patient to return after the above for further evaluation and management. 8. Consider treatment with six to eight cycles of R-CHOP if the patient will prove to have stage III or IV lymphoma. 9. Consider four cycles of R-CHOP to be followed by consolidation radiation therapy if the patient will prove to have only localized lymphoma of the stomach. Bone marrow aspiration biopsy done on September 17, 2017 was negative for lymphomatous involvement. Echocardiogram was September 17, 2017 showed normal left ventricular ejection fraction at 62% to 65% Treatment Treatment: - Treatmnt Plan, Consider four cycles of R-CHOP to be followed by consolidation radiation therapy if the patient will prove to have only localized lymphoma of the stomach. -09/30/2017 R-CHOP cycle#1 . per patient he had a thorat swelling with the rituxan. -10/23/17 R-CHOP cycle#2. Added pre med benadryl 50mg plus methyldrednisone for Ritux reaction. HPI HPI: Mr. 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 Patient started treatment with R-CHOP on September 30, 2017. s/p 4 PRBC transfussion the week of 10/09/17. Patient is seen and examined at the infusion center for his cycle two of RCHOP. He reports feeling much better all this week, he reports no dark stools for the last week, no constipation no diarrhea, no nausea, vomiting. cardiac type chest pain, SOb. or abdominal pain. Denies any dysphagia, dyspepsia, pyrosis or sore throat. No changes in apettite, bowel or bladder pattern. Feeling less fatigue. PET CT scan showed only besides the gastric mass, a 7 mm lymph node along the greater curvature of the stomach with SUV 6.22. There are some other lymph nodes along the lesser curvature and the kei-celiac artery region 8 mm in size, but without PET activity. Bone marrow aspiration biopsy done on September 17, 2017 was negative for lymphomatous involvement. His left ventricular ejection fraction by 2-D echocardiogram done on September 17, 2017 was normal at 60% to 65%. Hepatitis B and C serology came back negative. planning to treat him with four cycles of R-CHOP to be followed by consolidation radiation therapy. PAST MEDICAL HISTORY 1. Hypertension. 2. GERD. 3. Upper GI bleeding. 4. Gastric ulcer. PAST SURGICAL HISTORY 1. Tonsillectomy and adenoidectomy. 2. Appendectomy. 3. Right foot surgery. 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 And supportive of him. Diagnostic Studies Result Diagram: 10/23/17 0830 10/23/17 0830 PMH Patient History: FH: colon cancer Paternal GF FH: prostate cancer FATHER (prostate cancer) Social/Occupational History Social History: Social History This is a 57 Yr old White male, he is S Single and has [] Children Hx Smoking: No Smoking Status: Never Smoker Exposure to Second Hand Smoke?: No Allergies & Medications Allergies: Coded Allergies: pantoprazole (Verified Allergy, Severe, oral swelling, 10/10/17) ranitidine (Verified Allergy, Severe, facial swelling, 10/10/17) famotidine (Verified Allergy, Intermediate, LIPS AND TONGUE SWELL, 10/10/17 ) Home Meds Active Scripts Promethazine Hcl (PROMETHAZINE HCL) 25 Mg Tablet, 25 MG PO Q4H Y for NAUSEA/ VOMITING, #15 TAB Prov:DOLLY RICO DO 10/10/17 Ondansetron (ZOFRAN ODT) 4 Mg Tab.rapdis, 4 MG PO Q6H Y for NAUSEA/VOMITING, # 15 TAB.GABRIELE Prov:DOLLY RICO DO 10/10/17 Hydromorphone Hcl (DILAUDID) 2 Mg Tablet, 1-2 MG PO Q4H Y for PAIN, #15 Prov:DOLLY RICO DO 10/10/17 Potassium Chloride (POTASSIUM CHLORIDE) 10 Meq Tablet.er, 10 MEQ PO BID, #14 TAB 1 Refill Take with food Prov:THANG BUSTAMANTE MD 10/05/17 Prednisone (PREDNISONE) 20 Mg Tablet, 100 MG PO QDAY for 1 Day, #5 TAB This is to finish the 5 days following first round of chemotherapy. Prov:THANG BUSTAMANTE MD 10/05/17 Reported Medications Sucralfate (CARAFATE) 1 Gm/10 Ml Oral.susp, 1 GM PO 10/10/17 Review of Systems Constitution: Positive for Appetite/Weight Change (minimal), Denies Fever/ Chills/Sweating, Denies Recent Infection, Denies Other HEENT: No EARS: Tinnitus, No NOSE: Nasal Discharge, No THROAT: Sore Throat, No EYES: Dipolpia, No EARS: Hearing Problems, No NOSE: Epistaxis, No THROAT: Mouth Ulcers, No EYES: Vision Change, No OTHER Respiratory: No Cough, No Expectoration, No Hemoptysis, No Shortness of Breath , No OTHER Cardiovascular: No Chest Pain, No Orthopnea, No Edema, No Palpitations, No OTHER Gastrointestinal: No Nausea, No Vomitting, No Diarrehea, No Constipation, No Heart Burn, No Swallowing Difficulties, No Abdominal Pain Gentiourinary: No Hematuria, No Dysuria, No Nocturia, No Other Musculoskeletal: No Muscle Pain, No Joint Pain, No Bone Pain, No Other Hematological: No Bleeding, No Weakness, No Enlarged Lyph Nodes, No Bruising, No Fatigue, No Other Skin: No Skin Rash, No Lumps, No Erythema, No Dry Skin, No Moist Skin, No Other Psychiatric: No Anxiety, No Depression, No Other Vital Signs Vital Signs Temperature: 97.2 Pulse: 86 BP Systolic: 119 BP Diastolic: 70 Respiratory Rate: 16 O2 SAT: 94 O2 Delivery: Height (feet) Height (inches) 71.75 Weight lb: 241 Weight oz: 5.0 Weight Kg (Gideon): Pain: 0 Physical Exam General: Looks Stable, Well Developed, Well Nourished, Other (in No acute distress.) HEENT: HEAD:Atraumatic Neck: Supple Lungs: Clear to Auscultation Heart: Regular Rate and Rhythm Abdomen: Soft and Nontender Extremities: No Cyanosis, No Clubbing, No Edema, No Other Lymphatics: No Peripheral Lymphadenopathy, No Other Psychiatric: Mood appears normal, Affect appears normal Skin: No Skin Rashes, No Bruising, No Purpura, No Moist Desquamation, No Dry Desquamation, No Errythema, No Mild Errythema, No Moderate Errythema, No Severe Errythema, No Induration, No Other Breast: No No Masses, No No Nipple Discharge, No No Skin Changes, No Other Assessment and Plan Assessment and Plan: Mr. 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 Patient started treatment with R-CHOP on September 30, 2017. s/p 4 PRBC on 10/04- to- 10/08/17. for a symptomatic Hgb of 8.0 Thrombocytosis; in the setting of malignancy platelet today is 682. Discussed with Dr. barajas, we will admin Chemo today. CHRONIC Hypertension managed on 2. GERD. 3. Upper GI bleeding. 4. Gastric ulcer. 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 Patient started treatment with R-CHOP on September 30, 2017 1. Hx of Hypokalemia (K today is 4.3) Resolved. will monitor K+ labs and replete lytes as needed. 2. Hx of Neutropenia; ANC is 6.9; WBC is 7.8 today. completed Levaquin 500mg POx10 days today 10/23/17 Continue Acyclovir 400mg PoBID#30 days. Will montor counts closely. Neutropenic precautions teaching provided to patient as well as mask provided, for patient to wear while he is exposed to visitors. 3. Constipation: resolved he reports no dark tarry stools . regular BMs, and taking stool softner PRN teaching and instructions reinforced patient to hold stool softeners if having more than 3 BMs per day. 4. Hx of gastric ulcers, sensitivity reaction to pepcid and Protonix. patient to continue taking Carafate 10mLQID Rx. take 1 hour before alondra and at bedtime. Patient reports that he has been taking Dilaudid 1mg Po at bedtime for his gastric ulcer pain. teaching reinforced for him to continnue to take stool softners. 5. Continue to conserve energy and refrain from strenous activities. extensive energy conservation teaching reinforced, such as ordering groceries online and picking up at [employer], or hme delivery 6. Anemia today Hb is 9.6: disease and chemo induced anemia, Patient received a total of 4 units PRBC between 10/04-10/08/17. He is asymptomatic, and hemodinamically stable at present time. He reports feeling better, having more energy and that he has been implementing the energy conservation strategies provided. Anticipating blood product transfussion support as clinically indicated. 7.Chemotherapy cycle#2 September. Given the reaction to Rituxan will discuss with Dr. Barajas on Tx plan. Pre-med with Benadryl and Methylprednisone. 8. CBC, chem panel, LDH, uric acid, MAgnesium, Phosphorus to be checked weekly. 9. Patient to return in four weeks from now with above weekly labs drawn. 10.Patient to contact us for any new concerns or complaints. Patient to immediately go to thr ER if SOB, palpitations, active bleeding, fevers. TIME SPENT: 25 minutes >20 minutes incudes but not limited to discussion, counselling and co-ordination~ of care. Discussion with other health care providers, record review, review of lab work, diagnostic tests. Plan discussed extensively with patient. All the questions answered today. Thank you for the opportunity to be involved in the care of Mr. T Randal Billing Level: 4 return visit CC Copies to: MARY GRULLON MD-FABY,LESLY FAITH-C, ONC Oct 23, 2017 11:00
[2017-10-23] MEDS: HEPARIN FLSH (PORT) 500 UN/5ML IVP PRN (17:09)
[2017-10-30 07:19] LABS: PLATELET COUNT, AUTOMATED 418 K/uL (150-450)
[2017-11-02 15:58] VITALS: BP 123/80
--- NOTE | 2017-11-04 16:59 | Oncology Progress Note ---
History of Present Illness Evaluation Evaluation Date: Nov 02, 2017 Evaluation Time: 04:03 Accompanied by Accompanied by: Self Last seen by : Karl Chief Complaint Chief Complaint Upper lip Mouth sores Oncology History Oncology History Oncology History: 05/07/16 Gastric ulcer that bled . EGD and colonoscopy done by Dr. Coates showed ulcers. biopsies taken and no malignancy identified. positive for h. pylori. pt discharged on antibiotics and carafate and protonix. pt noticed dark stools. return to ER and PRBCs were transfused.He had EGD with cautery. February 2017 He had recurrent upper GI bleeding March [address] Coates, and early with EGD report demonstrating an ulcer, unsure if gastric or esophageal. August 12, [address] Pope, who did an EGD and colonoscopy EGD showed ulcers in the stomach body over the angularis and in the stomach body and in the fundus of the stomach, and in the whole stomach. He had also erosion at the cardia and 1-2 cm salmon-colored mucosa extending above the most proximal gastric fold, but the esophagus appeared normal and the patient had biopsies of all these masses. 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 September 03, 2017 He had EGD with cautery. He took PPIs for three to four weeks and he developed again the oral swelling and stopped the treatment. Sep 10 2017 PET/CT scan scan. 2. Bone marrow aspiration biopsy. 3. Dr. Oakley for placement of central port. 4. Echocardiogram for left ventricular ejection fraction. 5. CBC, chem panel, LDH, uric acid. 6. Hepatitis serology for hepatitis B and C. 7. Patient to return after the above for further evaluation and management. 8. Consider treatment with six to eight cycles of R-CHOP if the patient will prove to have stage III or IV lymphoma. 9. Consider four cycles of R-CHOP to be followed by consolidation radiation therapy if the patient will prove to have only localized lymphoma of the stomach. Bone marrow aspiration biopsy done on September 17, 2017 was negative for lymphomatous involvement. Echocardiogram was September 17, 2017 showed normal left ventricular ejection fraction at 62% to 65% Treatment Treatment - Treatment Plan, Consider four cycles of R-CHOP to be followed by consolidation radiation therapy if the patient will prove to have only localized lymphoma of the stomach. -09/30/2017 R-CHOP cycle#1 . per patient he had a thorat swelling with the rituxan. -10/23/17 R-CHOP cycle#2. Added pre med benadryl 50mg plus methyldrednisone for Ritux reaction. HPI HPI Mr. 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 Patient started treatment with R-CHOP on September 30, 2017. s/p 4 PRBC transfusion the week of 10/09. Patient presents to cancer center complaining of oral mouth sores, S/P 6/ R -CHOP cycle#2 on 10/23/17 . reports no major changes from baseline apart from mouth sores that started 5 days ago. No fevers, chills, night sweats, N/V/D. no dark stools,oral intake minimally affect by mouth sores, energy okk.no bleeding , bruising. no changes in bowel or bladder pattern. Diagnostic Studies Result Diagram: 10/30/1771310/30/17 0714 [facility] Patient History: FH: colon cancer Paternal GF FH: prostate cancer FATHER (prostate cancer) Social/Occupational History Social History: Social History This is a 57 Yr old White male, he is S Single and has [] Children Hx Smoking: No Smoking Status: Never Smoker Exposure to Second Hand Smoke?: No Allergies & Medications Allergies: Coded Allergies: pantoprazole (Verified Allergy, Severe, oral swelling, 10/10/17) ranitidine (Verified Allergy, Severe, facial swelling, 10/10/17) famotidine (Verified Allergy, Intermediate, LIPS AND TONGUE SWELL, 10/10/17 ) Home Meds Active Scripts Promethazine Hcl (PROMETHAZINE HCL) 25 Mg Tablet, 25 MG PO Q4H Y for NAUSEA/ VOMITING, #15 TAB Prov:DOLLY RICO DO 10/10/17 Ondansetron (ZOFRAN ODT) 4 Mg Tab.rapdis, 4 MG PO Q6H Y for NAUSEA/VOMITING, # 15 TAB.GABRIELE Prov:DOLLY RICO DO 10/10/17 Hydromorphone Hcl (DILAUDID) 2 Mg Tablet, 1-2 MG PO Q4H Y for PAIN, #15 Prov:DOLLY RICO DO 10/10/17 Potassium Chloride (POTASSIUM CHLORIDE) 10 Meq Tablet.er, 10 MEQ PO BID, #14 TAB 1 Refill Take with food Prov:THANG BUSTAMANTE MD 10/05/17 Prednisone (PREDNISONE) 20 Mg Tablet, 100 MG PO QDAY for 1 Day, #5 TAB This is to finish the 5 days following first round of chemotherapy. Prov:THANG BUSTAMANTE MD 10/05/17 Reported Medications Sucralfate (CARAFATE) 1 Gm/10 Ml Oral.susp, 1 GM PO 10/10/17 Review of Systems Constitution: Positive for Appetite/Weight Change (minimal), Denies Fever/ Chills/Sweating, Denies Recent Infection, Denies Other HEENT: No EARS: Tinnitus, No NOSE: Nasal Discharge, No THROAT: Sore Throat, No EYES: Dipolpia, No EARS: Hearing Problems, No NOSE: Epistaxis, No THROAT: Mouth Ulcers, No EYES: Vision Change, No OTHER Respiratory: No Cough, No Expectoration, No Hemoptysis, No Shortness of Breath , No OTHER Cardiovascular: No Chest Pain, No Orthopnea, No Edema, No Palpitations, No OTHER Gastrointestinal: Abdominal Pain, Other (Dark tarry stools) Gentiourinary: No Hematuria, No Dysuria, No Nocturia, No Other Musculoskeletal: No Muscle Pain, No Joint Pain, No Bone Pain, No Other Hematological: No Bleeding, No Weakness, No Enlarged Lyph Nodes, No Bruising, No Fatigue, No Other Skin: No Skin Rash, No Lumps, No Erythema, No Dry Skin, No Moist Skin, No Other Psychiatric: No Anxiety, No Depression, No Other Vital Signs Vital Signs Temperature: 99.1 Pulse: 83 BP Systolic: 123 BP Diastolic: 80 Respiratory Rate: 16 O2 SAT: 96 O2 Delivery: Height (feet) Height (inches) 71.75 Weight lb: 223 Weight oz: 5.0 Weight Kg (Gideon): Pain: 0 Physical Exam General: Looks Stable HEENT: HEAD:Atraumatic Neck: Supple Lungs: Clear to Auscultation Heart: Regular Rate and Rhythm Abdomen: Soft and Nontender Extremities: No Cyanosis, No Clubbing, No Edema, No Other Lymphatics: No Peripheral Lymphadenopathy, No Other Psychiatric: Mood appears normal, Affect appears normal Skin: No Skin Rashes, No Bruising, No Purpura, No Moist Desquamation, No Dry Desquamation, No Errythema, No Mild Errythema, No Moderate Errythema, No Severe Errythema, No Induration, No Other Breast: No No Masses, No No Nipple Discharge, No No Skin Changes, No Other Assessment and Plan Assessment and Plan Mr. 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 Patient started treatment with R-CHOP on September 30, 2017. s/p 4 PRBC transfusion the week of 10/09. Patient presents to cancer center complaining of oral mouth sores, S/P 6/ R -CHOP cycle#2 on 10/23/17 . reports no major changes from baseline apart from mouth sores that started 5 days ago. No fevers, chills, night sweats, N/V/D. no dark stools, apatite limited by mouth sores, energy okk. hemodynamically stable. 1. 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 Mucositis. upper lip mouth sores. noted in the setting of antineoplastic chemotherapy . thorough oral hygiene instructions provided , and supportive measures. ppfx antiviral/antibiotics on board. PLAN - Viral Culture PCR - Levaquin 500mg Po daily #7 days - Nystatin 4-6ml Po QID#14days -Fluconazole 200mg Po daily #10 pills - Peridex soft sponges 0.12% #14 doses -Continue Acyclovir 400mg PO BID - RTC PRN, continue taking stool softener -May take Tylenol for mouth sore pain. -Patient to call clinic in this week, for update on treatment response. to mucositis TIME SPENT: 25 minutes >20 minutes incudes but not limited to discussion, counselling and co-ordination~ of care. Discussion with other health care providers, record review, review of lab work, diagnostic tests. Plan discussed extensively with patient. All the questions answered today. Thank you for the opportunity to be involved in the care of Mr. Elizabeth Tee Jeyson Level: 4 return visit LESLY JACOME, ONC Nov 02, 2017 16:03
[~2017-11-13] VITALS: Ht 182.2 cm; Wt 96.9 kg
[~2017-11-13 08:17] MED LIST changes: +ALTEPLASE RECOMB 2 MG VIAL IVP PRN; +CYCLOPHOSPHAMIDE IVPB ONE; +DEXTROSE 5%(*) 100 ML BAG 100 ML IVPB PRN; +DOXOrubicin 50 MG/25 ML VIAL IVP ONE; +KCL (*) 20 MEQ/100 ML PREMIX 100 ML IVPB ONE; +LIDOCAINE/SOD BICARB 8.4% SYR ID PRN; +NS 0.9% IVPB ONE; +NS(*) 0.9% 100 ML BAG 100 ML IVPB PRN; +RITUXIMAB IV ONE; +WATER FOR INJ,STERILE 20 ML IVP PRN; +[UNRECOGNIZED DRUG - OTHER] IV ONE; +diphenhydrAMINE 25 MG CAP PO PRN; +diphenhydrAMINE 50 MG/ML VIAL IVP PRN; +vinCRIStine SULF 2 MG/2ML VIAL 2 MG in NS(*) 0.9% 50 ML BAG 50 ML IVP ONE
[2017-11-13 08:35] LABS: PLATELET COUNT, AUTOMATED 555 K/uL (150-450)
[2017-11-13 08:38] VITALS: BP 116/76
[2017-11-13] MEDS: methylPREDNIS SUCC 125 MG/2ML IVP PRN (09:15)
[2017-11-13] MEDS: ACETAMINOPHEN 325 MG TAB PO PRN (09:15)
[2017-11-13] MEDS: diphenhydrAMINE 50 MG/ML VIAL IVP PRN (09:16)
[2017-11-13] MEDS: PALONOSETRON 0.25 MG/5 ML VIAL IVP PRN (09:16)
[2017-11-13] MEDS: FOSAPREPITANT DIM 150 MG/5 ML 150 MG in NS(*) 0.9% 250 ML BAG 245 ML IVPB PRN (10:00)
--- NOTE | 2017-11-13 10:35 | Oncology Progress Note ---
History of Present Illness Evaluation Evaluation Date: Nov 13, 2017 Evaluation Time: 09:00 Accompanied by Accompanied by: Self Last seen by : Karl Oncology History Oncology History 05/07/16 Gastric ulcer that bled . EGD and colonoscopy done by Dr. Coates showed ulcers. Biopsies taken and no malignancy identified. positive for H. pylori. pt discharged on antibiotics and carafate and protonix. pt noticed dark stools. return to ER and PRBCs were transfused.He had EGD with cautery. February 2017 He had recurrent upper GI bleeding March [address] Coates, and early with EGD report demonstrating an ulcer, unsure if gastric or esophageal. August 12, [address] Pope, who did an EGD and colonoscopy EGD showed ulcers in the stomach body over the angularis and in the stomach body and in the fundus of the stomach, and in the whole stomach. He had also erosion at the cardia and 1-2 cm salmon-colored mucosa extending above the most proximal gastric fold, but the esophagus appeared normal and the patient had biopsies of all these masses. 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 September 03, 2017 He had EGD with cautery. He took PPIs for three to four weeks and he developed again the oral swelling and stopped the treatment. Sep 10 2017 1. PET/CT scan 2. Bone marrow aspiration biopsy. 3. Dr. Oakley for placement of central port. 4. Echocardiogram for left ventricular ejection fraction. 5. CBC, chem panel, LDH, uric acid. 6. Hepatitis serology for hepatitis B and C. 7. Patient to return after the above for further evaluation and management. 8. Consider treatment with six to eight cycles of R-CHOP if the patient will prove to have stage III or IV lymphoma. 9. Consider four cycles of R-CHOP to be followed by consolidation radiation therapy if the patient will prove to have only localized lymphoma of the stomach. September 17, 2017 Bone marrow aspiration biopsy done on September 17, 2017 was negative for lymphomatous involvement. September 17, 2017 Echocardiogram was showed normal left ventricular ejection fraction at 62% to 65% Treatment Treatment Treatment Plan, Consider four cycles of R-CHOP to be followed by consolidation radiation therapy if the patient will prove to have only localized lymphoma of the stomach. -09/30/2017 R-CHOP cycle#1 . per patient he had a throat swelling with the rituxan. -10/23/17 R-CHOP cycle#2. Added pre med benadryl 50mg plus methyldrednisone for Ritux reaction. - 11/13/2017 R-CHOP cycle#3. Added pre med benadryl 25-50mg plus methyldrednisone for Ritux reaction. HPI HPI Mr. 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 Patient started treatment with R-CHOP on September 30, 2017. s/p 4 PRBC transfusion the week of 10/09. Patient presents to cancer center for management of his treatment chemotherapy R-CHOP cycle#3 on 11/13/17 . Reports improvement on oral mucositis. no major changes from baseline. No fevers, chills, night sweats, N/V/ D. no dark stools, oral intake minimally affect by mouth sores, energy okk., minimum fatigue, he continues to be on the go and work. no bleeding, bruising. no changes in bowel or bladder pattern. Significant PMH of Hypertension; GERD; Upper GI bleeding; Gastric ulcer. Living Conditions Lives by himself, but has social support from son and coworkers. Diagnostic Studies Result Diagram: 11/13/1725 11/13/17 0825 [facility] Patient History: FH: colon cancer Paternal GF FH: prostate cancer FATHER (prostate cancer) Social/Occupational History Social History: Social History This is a 57 Yr old White male, he is S Single and has [] Children Hx Smoking: No Smoking Status: Never Smoker Exposure to Second Hand Smoke?: No Allergies & Medications Allergies: Coded Allergies: pantoprazole (Verified Allergy, Severe, oral swelling, 10/10/17) ranitidine (Verified Allergy, Severe, facial swelling, 10/10/17) famotidine (Verified Allergy, Intermediate, LIPS AND TONGUE SWELL, 10/10/17 ) Home Meds Active Scripts Promethazine Hcl (PROMETHAZINE HCL) 25 Mg Tablet, 25 MG PO Q4H Y for NAUSEA/ VOMITING, #15 TAB Prov:DOLLY RICO DO 10/10/17 Ondansetron (ZOFRAN ODT) 4 Mg Tab.rapdis, 4 MG PO Q6H Y for NAUSEA/VOMITING, # 15 TAB.GABRIELE Prov:DOLLY RICO DO 10/10/17 Hydromorphone Hcl (DILAUDID) 2 Mg Tablet, 1-2 MG PO Q4H Y for PAIN, #15 Prov:DOLLY RICO DO 10/10/17 Potassium Chloride (POTASSIUM CHLORIDE) 10 Meq Tablet.er, 10 MEQ PO BID, #14 TAB 1 Refill Take with food Prov:THANG BUSTAMANTE MD 10/05/17 Prednisone (PREDNISONE) 20 Mg Tablet, 100 MG PO QDAY for 1 Day, #5 TAB This is to finish the 5 days following first round of chemotherapy. Prov:THANG BUSTAMANTE MD 10/05/17 Reported Medications Sucralfate (CARAFATE) 1 Gm/10 Ml Oral.susp, 1 GM PO 10/10/17 Review of Systems Constitution: Denies Fever/Chills/Sweating, Denies Recent Infection, Denies Other HEENT: No EARS: Tinnitus, No NOSE: Nasal Discharge, No THROAT: Sore Throat, No EYES: Dipolpia, No EARS: Hearing Problems, No NOSE: Epistaxis, No THROAT: Mouth Ulcers, No EYES: Vision Change, OTHER (Mouthh sores, improving.) Respiratory: No Cough, No Expectoration, No Hemoptysis, No Shortness of Breath , No OTHER Cardiovascular: No Chest Pain, No Orthopnea, No Edema, No Palpitations, No OTHER Gastrointestinal: No Nausea, No Vomitting, No Diarrehea, No Constipation, No Heart Burn, No Swallowing Difficulties, No Abdominal Pain, No Other Gentiourinary: No Hematuria, No Dysuria, No Nocturia, No Other Musculoskeletal: No Muscle Pain, No Joint Pain, No Bone Pain, No Other Hematological: No Bleeding, No Weakness, No Enlarged Lyph Nodes, No Bruising, No Fatigue, No Other Skin: No Skin Rash, No Lumps, No Erythema, No Dry Skin, No Moist Skin, No Other Psychiatric: No Anxiety, No Depression, No Other Vital Signs Vital Signs Temperature: 97.0 Pulse: 74 BP Systolic: 116 BP Diastolic: 76 Respiratory Rate: 16 O2 SAT: 97 O2 Delivery: Height (feet) Height (inches) 71.75 Weight lb: 223 Weight oz: 5.0 Weight Kg (Gideon): Pain: 0 ECOG-1 Strenuous physical activity restricted; fully ambulatory and able to carry out light work. Physical Exam General: Looks Stable HEENT: HEAD:Atraumatic Neck: Supple Lungs: Clear to Auscultation Heart: Regular Rate and Rhythm Abdomen: Soft and Nontender Extremities: No Cyanosis, No Clubbing, No Edema, No Other Lymphatics: No Peripheral Lymphadenopathy, No Other Psychiatric: Mood appears normal, Affect appears normal Skin: No Skin Rashes, No Bruising, No Purpura, No Moist Desquamation, No Dry Desquamation, No Errythema, No Mild Errythema, No Moderate Errythema, No Severe Errythema, No Induration, No Other Breast: No No Masses, No No Nipple Discharge, No No Skin Changes, No Other Assessment and Plan Assessment and Plan Mr. 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 Patient started treatment with R-CHOP on September 30, 2017. s/p 4 PRBC transfusion the week of 10/09. Patient presents to cancer center for management of his treatment chemotherapy R-CHOP cycle#3 on 11/13/17. patient is hemodynamically stable, tolerating treatment with expected but manageable toxicities. Significant PMH of Hypertension; GERD; Upper GI bleeding; Gastric ulcer. DIAGNOSTIC DATA WBC 4.4; HGB 10.6; HCT 33.7; platelet count 555K; ANC 3.7; with an unremarkable Chemistry panel. 1. 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 R-CHOP cycle#3 today on 11/13/17. Labs were reviewed with patient. 2. Mucositis. improving, in the setting of antineoplastic chemotherapy . thorough oral hygiene instructions provided , and supportive measures. Patient to continue nystatin, baking soda, and aloe vera oral rinses. CHRONIC well controlled by medications 1. Hypertension. 2. GERD. 3. Upper GI bleeding. 4. Gastric ulcer. PLAN - Viral Culture PCR pending, was sent out of facility - Levaquin 500mg Po daily. Completed course today 11/13/2017. we will monitor counts closely and consider restarting ppfx abx on days 5-14 after chemo, based on counts numbers. - Nystatin 4-6ml Po QID#30days, continue Ppfx oral mucositis. -Continue taking stool softener, colace BID. - Patient to follow up with Dr. Barajas next Thursday11/20/2017. to discuss radiation treatment course,imaging after cycle #4 of RCHOP. -May take Tylenol for mouth sore pain. - Patient to continue nystatin, baking soda, and aloe vera oral rinses. -Patient to call clinic with any issues or concerns. TIME SPENT: 25 minutes >20 minutes incudes but not limited to discussion, counselling and co-ordination~ of care. Discussion with other health care providers, record review, review of lab work, diagnostic tests. Plan discussed extensively with patient. All the questions answered today. Thank you for the opportunity to be involved in the care of Mr. Elizabeth Benítez Level: 4 return visit LESLY JACOME, ONC Nov 13, 2017 10:35
[2017-11-13] MEDS ORDERED: riTUXimab 500 MG/50 ML SDV 900 MG in NS(*) 0.9% 1000 ML BAG 810 ML IV ONE (11:00)
[2017-11-13] MEDS ORDERED: CYCLOPHOSPHAMIDE IVPB ONE (12:00)
[2017-11-13] MEDS ORDERED: NS 0.9% IVPB ONE (12:00)
[2017-11-13] MEDS ORDERED: DOXOrubicin 50 MG/25 ML VIAL IVP ONE (13:00)
[2017-11-13] MEDS ORDERED: vinCRIStine SULF 2 MG/2ML VIAL 2 MG in NS(*) 0.9% 50 ML BAG 50 ML IVP ONE (13:30)
[2017-11-13] MEDS: HEPARIN FLSH (PORT) 500 UN/5ML IVP PRN (15:18)
[2017-11-13 15:19] VITALS: BP 115/73
[2017-11-13] MEDS: NS(*) 0.9% 500 ML BAG 500 ML IV PRN (15:41)
[2017-11-20 16:36] VITALS: BP 129/82
== END 2017-12-01 ==
LOC: ONC 08:17
PROVIDERS: ATTEND Internal Medicine Hematology
DX: Z51.11 Encounter for antineoplastic chemotherapy (principal); C85.89 Other specified types of non-Hodgkin lymphoma, extranodal and solid organ sites; R06.02 Shortness of breath; E87.6 Hypokalemia
CPT/HCPCS: 36415; 83615; 83735; 84100; 84550; 85025; 85027; 86704; 86803; 86850; 86900; 86901; 86920; 87252; 87340; 96367; 96368; 96375; 96411; 96413; 96415; 96417; 99202; 99212; J1200; J1453; J1642; J2469; J2930; J3480; J7030; J7040; J7050; J9000; J9070; J9310; J9370; P9016; Q0163; 36430; 82040; 82247; 82310; 82374; 82435; 82565; 82947; 84075; 84132; 84155; 84295; 84450; 84460; 84520; 96365; 96366

== ENCOUNTER 2017-11-13 11:15 | Outpatient (RCR) | payer OTHER ==
--- NOTE | 2017-10-02 14:59 | PT INITIAL EVALUATION ---
MEDICAL DIAGNOSIS: Gastric B-Cell Lymphoma TREATMENT DIAGNOSIS: Gastric B-Cell Lymphoma DATE OF ONSET: 10/02/17 SUBJECTIVE: Yoel is a 57 year-old male recently diagnosed with Gastric B-Cell Lymphoma presenting to PT for oncology rehabilitation to maintain function throughout treatment. Yoel is to start R-CHOP chemo regime today potentially followed by [facility] pending insurance coverage. 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 Pt walks frequently on his lunch break and enjoys skiing and hiking on the weekends. Pt is highly independent and plans to continue working throughout treatment. Pt reports no pain at present, but has occasional pain secondary to diagnosis that can be intense but comes and goes. 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 ROM: UE/LE ROM WFL Strength: LE MMT: Hips: Flexion: L 4+/5, R 5/5, Ext: B 5/5, Abd/Add: B 5/5. Knees: Flex/Ext: B 5/5, Ankles: DF/PF: B 5/5 Sensation: Pt reports no changes in sensation at this time. Mobility: ECOG Performance Status: Grade 0 Other Objective Findings: FACT-G: PWB: , SWB: 04/23, EWB: , FWB: . Total: 82/108 ASSESSMENT: Yoel presents as a fully functional 57 year-old male with minimal impairments other than occasional pain from recent diagnosis of Gastric B-Cell Lymphoma. Physical therapy is indicated for this patient to maintain functional status with ongoing oncological intervention for independent living as well as for continued function with occupational and recreational ADL's. Pt education was provided for this patient on physical side-effects of treatment as well as well as preventative exercises to maintain function. Short Term Goals In 2 MO pt will maintain ECOG performance status of Grade 1 or less for maintained function with ADL's as well as improved outcomes with ongoing oncological treatment. In 2 MO pt will maintain FACT-G score of 80 or greater for maintenance of function with ADL's and well-being status. In 4 MO pt will maintain strength of 4+/5 for maintenance of function with ADL' s and recreational activities. In 4 MO pt will maintain FACT-G score of 80 or greater for maintenance of function with ADL's and well-being status. Patient's Goals Maintain function and independence with ADL's and recreational activities. PLAN: Patient to be seen for Manual Therapy/STM/MET Strengthening/condition Ice/Heat Range of Motion Spinal Stabilization Ultrasound Stretching Iontophoresis Neuromuscular Re-ed Closed Chain Program Electrical Stim Posture/Body mechanics Gait Trg/Balance Trg Biofeedback Home Exercise Program Mech./Manual Traction Therapeutic Activities Pelvic Floor 1x/MO for 4 Months If you have any questions, comments, or concerns about this report or plan, please contact me at . Thank you, Sofia Castellanos, PT, DPT, CLT MTDD
[2017-10-05 10:07] VITALS: BMI 30.9
[~2017-11-13 11:15] MED LIST changes: -ALTEPLASE RECOMB 2 MG VIAL IVP PRN; -CYCLOPHOSPHAMIDE IVPB ONE; -DEXTROSE 5%(*) 100 ML BAG 100 ML IVPB PRN; -DOXOrubicin 50 MG/25 ML VIAL IVP ONE; -KCL (*) 20 MEQ/100 ML PREMIX 100 ML IVPB ONE; -LIDOCAINE/SOD BICARB 8.4% SYR ID PRN; -NS 0.9% IVPB ONE; -NS(*) 0.9% 100 ML BAG 100 ML IVPB PRN; -RITUXIMAB IV ONE; -WATER FOR INJ,STERILE 20 ML IVP PRN; -[UNRECOGNIZED DRUG - OTHER] IV ONE; -diphenhydrAMINE 25 MG CAP PO PRN; -diphenhydrAMINE 50 MG/ML VIAL IVP PRN; -vinCRIStine SULF 2 MG/2ML VIAL 2 MG in NS(*) 0.9% 50 ML BAG 50 ML IVP ONE
--- NOTE | 2017-11-13 12:10 | PT PLAN OF CARE ---
Physician: Henrry Madden MD Patient is being seen: 1x/MO Therapist: Sofia Castellanos, PT, DPT, CLT Medical Diagnosis: Gastric B-Cell Lymphoma Treatment Diagnosis: Gastric B-Cell Lymphoma Date of Onset: 10/02/17 Date of Initial Evaluation: 10/02/17 Date patient was last seen: 11/13/17 Number of treatments: 2 Number of cancellations/No shows: 0 INTERVENTIONS: Manual Therapy/STM/MET Strengthening/condition Ice/Heat Range of Motion Spinal Stabilization Ultrasound Stretching Iontophoresis Neuromuscular Re-ed Closed Chain Program Electrical Stim Posture/Body mechanics Gait Trg/Balance Trg Biofeedback Home Exercise Program Mech./Manual Traction Therapeutic Activities Pelvic Floor GOALS: In 2 MO pt will maintain ECOG performance status of Grade 1 or less for maintained function with ADL's as well as improved outcomes with ongoing oncological treatment. MET In 2 MO pt will maintain FACT-G score of 80 or greater for maintenance of function with ADL's and well-being status. MET In 4 MO pt will maintain strength of 4+/5 for maintenance of function with ADL' s and recreational activities. In 4 MO pt will maintain FACT-G score of 80 or greater for maintenance of function with ADL's and well-being status. PATIENT'S GOAL: Maintain function with ADL's and recreational activities. Status of Patient's Goals: 2/4 MET, 2/4 In Progress Patient Compliance: Good Prognosis: Good Reasons for continuing therapy: Yoel shows excellent maintenance of condition starting his third round of chemo with only one more left on December 04. At this time pt is maintaining physical condition with minimal deficits or side- effects. Pt denies any onset of neuropathy, nausea or weakness. Pt does report mild fatigue as well as occasional back pain associated likely with posterior derangement in flexed standing with core stability fatigue. Pt educated on core strengthening to support as well as lumbar extension exercises to mediate prolonged flexion with work and home. Pt shows improved social and emotional well-being with decreased anxiety and pt empowerment over condition. PT provided brief education with initiation of radiation on physical side-effects and will educate further when a radiation plan is established. Posture: Pt presents with slight rounded shoulders but otherwise unremarkable posture. ROM: UE/LE ROM WFL Strength: LE MMT: Hips: Flexion: L 4+/5, R 5/5, Ext: B 5/5, Abd/Add: B 5/5. Knees: Flex/Ext: B 08/29, Ankles: DF/PF: B 08/29 Outcome Measures: FACT-G (Eval 10/02/17): PWB: 26/, SWB: 04/23, EWB: , FWB : . Total: 82/108 FACT-G (11/13/17): PWB: 25, SWB: , EWB: , FWB: . Total: 89/ 108 Mobility: ECOG Performance Status: Grade 1-0 If you have any questions or concerns, please feel free to contact me at . Thank you, Sofia Castellanos, PT, DPT, CLT MTDD
== END 2017-12-31 ==
LOC: PT 11:15
PROVIDERS: ATTEND Internal Medicine Hematology
DX: C85.10 Unspecified B-cell lymphoma, unspecified site (principal); G89.3 Neoplasm related pain (acute) (chronic)
CPT/HCPCS: 97161

== ENCOUNTER → 2017-11-20 | Outpatient (CLI) | payer OTHER ==
[2017-10-05 10:07] VITALS: BMI 30.9
[2017-11-20 07:22] LABS: PLATELET COUNT, AUTOMATED 360 K/uL (150-450)
--- NOTE | 2017-11-20 18:18 | ONCOLOGY FOLLOW UP NOTE ---
EVENT DATE: November 20, 2017 DIAGNOSIS Gastric lymphoma. CHIEF COMPLAINT Patient is here today for followup of his gastric lymphoma. ONCOLOGY HISTORY Patient is a 57-year-old male who presents with daily, at least two times per day, epigastric pain and fullness immediately followed by retrosternal to right- sided pressure followed immediately by sensation that he needs to have a bowel movement. He has mild if any sensation of the need to belch. He takes Pepcid AC and symptoms resolve over 15-30 minutes. He has also intermittent early satiety and postprandial bloating. Denies any dysphagia, dyspepsia, pyrosis or sore throat. He has also perioral swelling with any of the PPIs. He had a history of GI bleed April 2016, and EGD and colonoscopy done by Dr. Coates showed ulcers. Unsure if esophageal or gastric. He had persistent rectal bleeding and required transfusions. He had EGD with cautery. He took PPIs for three to four weeks and he developed again the oral swelling and stopped the treatment. He had recurrent upper GI bleeding February 2017, saw Dr. Coates , and early March 2017 with EGD report demonstrating an ulcer, unsure if gastric or esophageal. Patient saw Dr. Pope, who did an EGD and colonoscopy on August 12, 2017. EGD showed ulcers in the stomach body over the angularis and in the stomach body and in the fundus of the stomach, and in the whole stomach. He had also erosion at the cardia and 1-2 cm salmon-colored mucosa extending above the most proximal gastric fold, but the esophagus appeared normal and the patient had biopsies of all these masses. 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 The B cell lymphoma involving extensively all the fragments of gastric mucosa included in the sample. Consists of high grade B cell lymphoma with germinal center immunophenotype and a proliferation index of 100%. The high grade lymphoma included 25% of the total area involvement, while the low grade B cell lymphoma included 75% with diffuse growth pattern. Differential diagnosis of the low grade lymphoma mainly follicular lymphoma and MALT lymphoma. His colonoscopy showed internal hemorrhoids with moderate diverticulosis of the mid descending colon and sigmoid colon. Patient had a PET CT scan done on September 24, 2017 which showed a small lymph node 7 mm in size along the greater curvature of the stomach with SUV 6.22. There are some other lymph nodes along the lesser curvature of the stomach and the kei-celiac artery area, but they were PET negative and those lymph nodes were 8 mm in size. Bone marrow aspiration biopsy done on September 17, 2017 was negative for lymphomatous involvement. HISTORY OF PRESENT ILLNESS Patient is here today for followup of his gastric lymphoma. He is doing fine currently. He is complaining of alternating diarrhea and constipation. He has also tingling and numbness in the hands and feet. Other than that he is really doing very well. PAST MEDICAL HISTORY 1. Hypertension. 2. GERD. 3. Upper GI bleeding. 4. Gastric ulcer. PAST SURGICAL HISTORY 1. Tonsillectomy and adenoidectomy. 2. Appendectomy. 3. Right foot surgery. FAMILY HISTORY Father had prostate cancer. Paternal grandfather with some sort of cancer , he does not know the type. SOCIAL HISTORY Patient is with two children. 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 He is a never smoker. He drinks rarely. Denies any abuse of illicit drugs. CURRENT MEDICATIONS Pepcid AC p.r.n. for his GI symptoms. ALLERGIES PPIs which cause oral swelling. REVIEW OF SYSTEMS CONSTITUTIONAL: No appetite or weight change. No fever, chills or sweating. No recent infection. HEENT: Ears: No tinnitus or hearing problem. Nose: No nasal discharge or epistaxis. Throat: No sore throat or mouth ulcers. Eyes: No diplopia or visual changes. RESPIRATORY: He has exertional shortness of breath. No cough, expectoration or hemoptysis. CARDIOVASCULAR: No chest pain, orthopnea, or paroxysmal nocturnal dyspnea (PND) . No edema. No palpitations. GASTROINTESTINAL: No nausea or vomiting. He has alternating diarrhea or constipation. No heartburn or swallowing difficulties. Patient has epigastric pain radiating to mid sternal pain as mentioned in the oncology history. Other than that he is doing fine. No jaundice. No hematemesis, melena or rectal bleeding. GENITOURINARY: No hematuria or dysuria. MUSCULOSKELETAL: He has generalized aches. NEUROLOGICAL: He has tingling or numbness in the hands and feet. No headaches or convulsions. HEMATOLOGIC/LYMPHATIC: No bleeding or easy bruising. No weakness or fatigue. No enlarged lymph nodes. SKIN: No skin rash or lumps. PSYCHIATRIC: No anxiety or depression. PHYSICAL EXAMINATION GENERAL: Looks stable. Well-developed, well-nourished, and in no acute distress. VITAL SIGNS: Blood pressure 129/82, pulse 81 per minute, respirations 16 per minute, temperature 98.1, pulse ox 97% on room air. HEENT: Head: Atraumatic. No sinus tenderness to palpation. Eyes: No icterus or conjunctivitis. Mouth and Throat: No oral thrush or mucositis. NECK: Supple. No cervical or supraclavicular lymphadenopathy. LUNGS: Clear to auscultation and percussion bilaterally. HEART: Regular rate and rhythm. No gallops, murmurs, clicks or rubs. ABDOMEN: Soft and lax. No tenderness. No hepatosplenomegaly. No masses. EXTREMITIES: No cyanosis, clubbing or edema. LYMPHATICS: No peripheral lymphadenopathy. NEUROLOGICAL: Conscious, alert and oriented times three. No focal motor or sensory deficits. PSYCHIATRIC: Mood and affect appear normal. SKIN: No skin rash, bruise or purpuric eruption. DIAGNOSTIC DATA CBC showed white count 4.4, hemoglobin 10.6, hematocrit 33.7, platelets 555, 000. Chem panel is totally normal. ASSESSMENT 1. 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 PET/CT scan showed only besides the gastric mass, a 7 mm lymph node along the greater curvature of the stomach with SUV 6.22. There are some other lymph nodes along the lesser curvature and the kei-celiac artery region 8 mm in size, but without PET activity. Bone marrow aspiration biopsy done on August was negative for lymphomatous involvement. 2-D echocardiogram done on September 17, 2017 was normal at 60% to 65%. Hepatitis B and C serology came back negative. Patient started chemotherapy with R-CHOP on September 30, 2017. He received three cycles so far and I am planning to proceed with his fourth cycle on schedule on December 04, 2017. After the last cycle of chemotherapy I am planning to check a PET/CT scan for further evaluation, and after that also I am planning to send him to the radiation oncologist for consolidation radiation therapy. I explained that to the patient. He is agreeable with the plan of management. 2. Chemotherapy-induced anemia. Current hemoglobin 10.6. Consider blood transfusion if the hemoglobin drops below 8 g/dL. 3. Reactive thrombocytosis, most probably due to rebound of the bone marrow after bone marrow suppression. I am planning to continue to monitor his CBC. PLAN 1. Chemotherapy with R-CHOP. This will be cycle number four which will be given on December 04, 2017. 2. CBC, chem panel to be checked weekly after chemotherapy. 3. Patient to return in three weeks after chemotherapy with CBC, chem panel, LDH, uric acid and PET/CT scan. 4. Neulasta 6 mg subcutaneously after chemotherapy. 5. Patient to contact us for any new concerns or complaints. MTDD
== END ==
LOC: LAB 06:36
PROVIDERS: ATTEND Internal Medicine Hematology
DX: C88.4 Extranodal marginal zone B-cell lymphoma of mucosa-associated lymphoid tissue [MALT-lymphoma] (principal)
CPT/HCPCS: 36415; 82040; 82247; 82310; 82374; 82435; 82565; 82947; 84075; 84132; 84155; 84295; 84450; 84460; 84520; 85025

== ENCOUNTER → 2017-11-27 | Outpatient (CLI) | payer OTHER ==
[2017-10-05 10:07] VITALS: BMI 30.9
[2017-11-27 06:56] LABS: PLATELET COUNT, AUTOMATED 183 K/uL (150-450)
== END ==
LOC: LAB 06:36
PROVIDERS: ATTEND Internal Medicine Hematology
DX: C88.4 Extranodal marginal zone B-cell lymphoma of mucosa-associated lymphoid tissue [MALT-lymphoma] (principal)
CPT/HCPCS: 36415; 82040; 82247; 82310; 82374; 82435; 82565; 82947; 84075; 84132; 84155; 84295; 84450; 84460; 84520; 85025

== ENCOUNTER → 2017-12-11 | Outpatient (CLI) | payer OTHER ==
[2017-10-05 10:07] VITALS: BMI 30.9
[2017-12-11 07:53] LABS: PLATELET COUNT, AUTOMATED 367 K/uL (150-450)
== END ==
LOC: LAB 07:27
PROVIDERS: ATTEND Internal Medicine Hematology
DX: C88.4 Extranodal marginal zone B-cell lymphoma of mucosa-associated lymphoid tissue [MALT-lymphoma] (principal)
CPT/HCPCS: 36415; 82040; 82247; 82310; 82374; 82435; 82565; 82947; 84075; 84132; 84155; 84295; 84450; 84460; 84520; 85025

== ENCOUNTER → 2017-12-17 | Outpatient (CLI) | payer OTHER ==
[2017-10-05 10:07] VITALS: BMI 30.9
[2017-12-17 06:56] LABS: PLATELET COUNT, AUTOMATED 210 K/uL (150-450)
== END ==
LOC: LAB 06:38
PROVIDERS: ATTEND Internal Medicine Hematology
DX: C88.4 Extranodal marginal zone B-cell lymphoma of mucosa-associated lymphoid tissue [MALT-lymphoma] (principal)
CPT/HCPCS: 36415; 82040; 82247; 82310; 82374; 82435; 82565; 82947; 84075; 84132; 84155; 84295; 84450; 84460; 84520; 85025

== ENCOUNTER 2017-12-25 15:30 | Outpatient (RCR) | payer OTHER ==
[2017-10-05 10:07] VITALS: Ht 182.9 cm; Wt 97.9 kg
--- NOTE | 2017-12-04 09:26 | Oncology Progress Note ---
History of Present Illness Evaluation Evaluation Date: Dec 04, 2017 Evaluation Time: 09:10 Accompanied by Accompanied by: Self Last seen by : Karl Chief Complaint Chief Complaint follow up management R-CHOP cycle#4 on 12/04/17 for gastric lymphoma Oncology History Oncology History 05/07/16 Gastric ulcer that bled . EGD and colonoscopy done by Dr. Coates showed ulcers. Biopsies taken and no malignancy identified. positive for H. pylori. pt discharged on antibiotics and carafate and protonix. pt noticed dark stools. return to ER and PRBCs were transfused.He had EGD with cautery. February 2017 He had recurrent upper GI bleeding March [address] Coates, and early with EGD report demonstrating an ulcer, unsure if gastric or esophageal. August 12, [address] Pope, who did an EGD and colonoscopy EGD showed ulcers in the stomach body over the angularis and in the stomach body and in the fundus of the stomach, and in the whole stomach. He had also erosion at the cardia and 1-2 cm salmon-colored mucosa extending above the most proximal gastric fold, but the esophagus appeared normal and the patient had biopsies of all these masses. 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 September 03, 2017 He had EGD with cautery. He took PPIs for three to four weeks and he developed again the oral swelling and stopped the treatment. Sep 10 2017 1. PET/CT scan 2. Bone marrow aspiration biopsy. 3. Dr. Oakley for placement of central port. 4. Echocardiogram for left ventricular ejection fraction. 5. CBC, chem panel, LDH, uric acid. 6. Hepatitis serology for hepatitis B and C. 7. Patient to return after the above for further evaluation and management. 8. Consider treatment with six to eight cycles of R-CHOP if the patient will prove to have stage III or IV lymphoma. 9. Consider four cycles of R-CHOP to be followed by consolidation radiation therapy if the patient will prove to have only localized lymphoma of the stomach. September 17, 2017 Bone marrow aspiration biopsy done on September 17, 2017 was negative for lymphomatous involvement. September 17, 2017 Echocardiogram was showed normal left ventricular ejection fraction at 62% to 65% Treatment Treatment 12/04/2017 C4/D1 R-CHOP Treatment Plan, Consider four cycles of R-CHOP to be followed by consolidation radiation therapy if the patient will prove to have only localized lymphoma of the stomach. -09/30/2017 R-CHOP cycle#1 . per patient he had a throat swelling with the rituxan. -10/23/17 R-CHOP cycle#2. Added pre med benadryl 50mg plus methyldrednisone for Ritux reaction. - 11/13/2017 R-CHOP cycle#3. Added pre med benadryl 25-50mg plus methyldrednisone for Ritux reaction. HPI HPI Mr. 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 Patient started treatment with R-CHOP on September 30, 2017. s/p 4 PRBC transfusion the week of 10/09. Patient presents to cancer center for management of his treatment chemotherapy R-CHOP cycle#4 on 12/04/17 . Reports being in his usual state of health, besides increased nocturia and frequency, denies any burning sensation, no flank pain. no oral mucositis. no major changes from baseline. No fevers, chills, night sweats, N/V/D. no dark stools, oral intake minimally affect by mouth sores, energy okk., minimum fatigue, he continues to be on the go and work. no bleeding, bruising. no changes in bowel or bladder pattern. Significant PMH of Hypertension; GERD; Upper GI bleeding; Gastric ulcer Living Conditions alone, with friend and son's support. Diagnostic Studies Result Diagram: 12/04/1781912/04/17 0820 PMH Patient History: FH: colon cancer Paternal GF FH: prostate cancer FATHER (prostate cancer) Social/Occupational History Social History: Social History This is a 57 Yr old White male, he is S Single and has [] Children Hx Smoking: No Smoking Status: Never Smoker Exposure to Second Hand Smoke?: No Allergies & Medications Allergies: Coded Allergies: pantoprazole (Verified Allergy, Severe, oral swelling, 10/10/17) ranitidine (Verified Allergy, Severe, facial swelling, 10/10/17) famotidine (Verified Allergy, Intermediate, LIPS AND TONGUE SWELL, 10/10/17 ) Home Meds Active Scripts Promethazine Hcl (PROMETHAZINE HCL) 25 Mg Tablet, 25 MG PO Q4H Y for NAUSEA/ VOMITING, #15 TAB Prov:DOLLY RICO DO 10/10/17 Ondansetron (ZOFRAN ODT) 4 Mg Tab.rapdis, 4 MG PO Q6H Y for NAUSEA/VOMITING, # 15 TAB.GABRIELE Prov:DOLLY RICO DO 10/10/17 Hydromorphone Hcl (DILAUDID) 2 Mg Tablet, 1-2 MG PO Q4H Y for PAIN, #15 Prov:DOLLY RICO DO 10/10/17 Prednisone (PREDNISONE) 20 Mg Tablet, 100 MG PO QDAY for 1 Day, #5 TAB This is to finish the 5 days following first round of chemotherapy. Prov:THANG BUSTAMANTE MD 10/05/17 Review of Systems Constitution: Denies Appetite/Weight Change, Denies Fever/Chills/Sweating, Denies Recent Infection, Denies Other HEENT: No EARS: Tinnitus, No NOSE: Nasal Discharge, No THROAT: Sore Throat, No EYES: Dipolpia, No EARS: Hearing Problems, No NOSE: Epistaxis, No THROAT: Mouth Ulcers, No EYES: Vision Change, OTHER Respiratory: No Cough, No Expectoration, No Hemoptysis, No Shortness of Breath , No OTHER Cardiovascular: No Chest Pain, No Orthopnea, No Edema, No Palpitations, No OTHER Gentiourinary: No Hematuria, No Dysuria, Nocturia, No Other Musculoskeletal: No Muscle Pain, No Joint Pain, No Bone Pain, No Other Skin: No Skin Rash, No Lumps, No Erythema, No Dry Skin, No Moist Skin, No Other Psychiatric: No Anxiety, No Depression, No Other Vital Signs Vital Signs Temperature: 97.4 Pulse: 81 BP Systolic: 139 BP Diastolic: 82 Respiratory Rate: 16 O2 SAT: 97 O2 Delivery: Height (feet) Height (inches) 72.00 Weight lb: 223 Weight oz: 5.0 Weight Kg (Gideon): Pain: 0 ECOG-1 Physical Exam General: Looks Stable, Well Developed, Well Nourished HEENT: HEAD:Atraumatic, No EYES: Conjuctivitis, No EYES: Icterus, No MOUTH: Mucocitis, No MOUTH: Oral Thrush, No SINUS: Tenderness to Palpation, No Other Neck: Supple, No Cervical Lymphadenopathy, No Subclavicular Lymphadopathy, No Thyromegaly, No Other Lungs: Clear to Auscultation Heart: Regular Rate and Rhythm Abdomen: Soft and Nontender Extremities: No Cyanosis, No Clubbing, No Edema, No Other Lymphatics: No Peripheral Lymphadenopathy, No Other Psychiatric: Mood appears normal, Affect appears normal Skin: No Skin Rashes, No Bruising, No Purpura, No Moist Desquamation, No Dry Desquamation, No Errythema, No Mild Errythema, No Moderate Errythema, No Severe Errythema, No Induration, No Other Breast: No No Masses, No No Nipple Discharge, No No Skin Changes, No Other Assessment and Plan Assessment and Plan Mr. 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 Patient started treatment with R-CHOP on September 30, 2017. s/p 4 PRBC transfusion the week of 10/09. Patient presents to cancer center for management of his treatment chemotherapy R-CHOP cycle#4 on 12/04/17. patient is hemodynamically stable, tolerating treatment with expected but manageable toxicities. Significant PMH of Hypertension; GERD; Upper GI bleeding; Gastric ulcer. DIAGNOSTIC DATA Within acceptable limit. reviewed on [employer]. 1. 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 R-CHOP cycle#4 on 12/04/17. Labs were reviewed with patient. 2. Mucositis. improving, in the setting of antineoplastic chemotherapy . thorough oral hygiene instructions provided , and supportive measures. Patient to continue nystatin, baking soda, and aloe vera oral rinses. 3. Nocturia and weak urine stream. Patient reports of nocturia increased nocturia and weak stream overnight Q hour every hour. no infection etiology geared towards. PSA requested and patient to follow up with PCP. CHRONIC well controlled by medications 1. Hypertension. 2. GERD. 3. Upper GI bleeding. 4. Gastric ulcer. PLAN I had a good Visit today with Mr. Yoel Tee we will do the following today #1 he can continue with the treatment as planned today for R CHOP cycle 4 day one #2 patient to resume neutropenic precautions starting 12/09/2017 with Levaquin 500 mg by mouth for 7 days, fluconazole 400 mg by mouth daily 7 days Bactrim DS one tab by mouth [id number] pills to be taken every Wednesdays and Fridays #3 PET scan due on 12/23/17 #[address] Barajas follow up with CBC/diff, CMp, Mag, LDH, uric acid, PET scan results on 12/25/2017 #6 Dr. Rivera will decide if and when and how much radiation he would need to receive based on the results of the PET scan #7 Records from primary Provider patient so her primary care doctor at [facility] last February 2017. PSA was done with excellent results of PSA. -Education, patient instructed to go to ER immediately and or call Clinic if any Shortness of Breath, Temp >/=100.4, fevers, chills, cardiac type chest pain , bleeding, excessive bruising, headaches, blurry vision, dizziness, abdominal pain, difficulty swallowing, and pain unrelieved by medication. TIME SPENT: 20 minutes >15 minutes incudes but not limited to discussion, counselling and co-ordination~ of care. Discussion with other health care providers, record review, review of lab work, diagnostic tests. Plan discussed extensively with patient. All the questions answered today. Thank you for the opportunity to be involved in the care of Mr. Elizabeth Tee. Billing Level: 3 return visit LESLY JACOME, ONC Dec 04, 2017 09:26
--- NOTE | 2017-12-04 14:11 | Medical Nutrition Therapy ---
Nutrition Anthropometrics Height (Inches): 72.00 Height (Calculated Centimeters: 182.8800 Weight (Pounds): 210 BMI: 29 Hx Weight Loss: Yes (patient has lost 10lbs, patient states his wt has been stable the last month ) Nutrition Monitoring & Eval Nutrition Monitoring: Patient states his appetite is good, eating normal foods but less than normal amount, he has had issues with constipation post chemo which resolves RD Patient Assessment Time: [address] Assessment Type: RD Education Patient Nutrition Acuity: 2-Moderate Nutritional Comment: Patient will be starting Rad Tx, I encouraged him to contact me if he has any nutrition issues or concerns. STEFAN HAMILTON RDN, ISELA Dec 04, 2017 14:10
[2017-12-04 15:19] VITALS: BP 127/83
[~2017-12-25] VITALS: Ht 182.9 cm; Wt 97.9 kg
[~2017-12-25 15:30] MED LIST changes: +ACETAMINOPHEN 325 MG TAB PO PRN; +ALTEPLASE RECOMB 2 MG VIAL IVP PRN; +CYCLOPHOSPHAMIDE IVPB ONE; +DEXTROSE 5%(*) 100 ML BAG 100 ML IVPB PRN; +DOXOrubicin 50 MG/25 ML VIAL IVP ONE; +FOSAPREPITANT DIM 150 MG/5 ML 150 MG in NS(*) 0.9% 250 ML BAG 245 ML IVPB PRN; +HEPARIN FLSH (PORT) 500 UN/5ML IVP PRN; +LIDOCAINE/SOD BICARB 8.4% SYR ID PRN; +NS 0.9% IVPB ONE; +NS(*) 0.9% 100 ML BAG 100 ML IVPB PRN; +NS(*) 0.9% 500 ML BAG 500 ML IV PRN; +PALONOSETRON 0.25 MG/5 ML VIAL IVP PRN; +WATER FOR INJ,STERILE 20 ML IVP PRN; +diphenhydrAMINE 50 MG/ML VIAL IVP PRN; +methylPREDNIS SUCC 125 MG/2ML IVP PRN; +riTUXimab 500 MG/50 ML SDV 900 MG in NS(*) 0.9% 1000 ML BAG 810 ML IV ONE; +vinCRIStine SULF 2 MG/2ML VIAL 2 MG in NS(*) 0.9% 50 ML BAG 50 ML IVP ONE
[2017-12-25 15:53] VITALS: BP 113/70
[2017-12-25 16:02] LABS: PLATELET COUNT, AUTOMATED 364 K/uL (150-450)
--- NOTE | 2017-12-25 18:41 | ONCOLOGY FOLLOW UP NOTE ---
EVENT DATE: December 25, 2017 DIAGNOSIS Gastric lymphoma. CHIEF COMPLAINT Patient is here today for followup of his gastric lymphoma. ONCOLOGY HISTORY Patient is a 57-year-old male who presents with daily, at least two times per day, epigastric pain and fullness immediately followed by retrosternal to right- sided pressure followed immediately by sensation that he needs to have a bowel movement. He has mild if any sensation of the need to belch. He takes Pepcid AC and symptoms resolve over 15-30 minutes. He has also intermittent early satiety and postprandial bloating. Denies any dysphagia, dyspepsia, pyrosis or sore throat. He has also perioral swelling with any of the PPIs. He had a history of GI bleed April 2016, and EGD and colonoscopy done by Dr. Coates showed ulcers. Unsure if esophageal or gastric. He had persistent rectal bleeding and required transfusions. He had EGD with cautery. He took PPIs for three to four weeks and he developed again the oral swelling and stopped the treatment. He had recurrent upper GI bleeding February 2017, saw Dr. Coates, and early March 2017 with EGD report demonstrating an ulcer, unsure if gastric or esophageal. Patient saw Dr. Pope, who did an EGD and colonoscopy on August 12, 2017. EGD showed ulcers in the stomach body over the angularis and in the stomach body and in the fundus of the stomach, and in the whole stomach. He had also erosion at the cardia and 1-2 cm salmon-colored mucosa extending above the most proximal gastric fold, but the esophagus appeared normal and the patient had biopsies of all these masses. 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 The B cell lymphoma involving extensively all the fragments of gastric mucosa included in the sample. Consists of high grade B cell lymphoma with germinal center immunophenotype and a proliferation index of 100%. The high grade lymphoma included 25% of the total area involvement, while the low grade B cell lymphoma included 75% with diffuse growth pattern. Differential diagnosis of the low grade lymphoma mainly follicular lymphoma and MALT lymphoma. His colonoscopy showed internal hemorrhoids with moderate diverticulosis of the mid descending colon and sigmoid colon. Patient had a PET CT scan done on September 24, 2017 which showed a small lymph node 7 mm in size along the greater curvature of the stomach with SUV 6.22. There are some other lymph nodes along the lesser curvature of the stomach and the kei-celiac artery area, but they were PET negative and those lymph nodes were 8 mm in size. Bone marrow aspiration biopsy done on September 17, 2017 was negative for lymphomatous involvement. Patient received four courses of R-CHOP between September 30, 2017 through December 04, 2017 with achievement of complete remission by PET scan. HISTORY OF PRESENT ILLNESS Patient is here today for followup of his gastric lymphoma. He is doing fine currently. He has some tingling and numbness in the hands and feet, but other than that he is really doing very well currently. PAST MEDICAL HISTORY 1. Hypertension. 2. GERD. 3. Upper GI bleeding. 4. Gastric ulcer. PAST SURGICAL HISTORY 1. Tonsillectomy and adenoidectomy. 2. Appendectomy. 3. Right foot surgery. FAMILY HISTORY Father had prostate cancer. Paternal grandfather with some sort of cancer, he does not know the type. SOCIAL HISTORY Patient is with two children. 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 He is a never smoker. He drinks rarely. Denies any abuse of illicit drugs. CURRENT MEDICATIONS Pepcid AC p.r.n. for his GI symptoms. ALLERGIES PPIs which cause oral swelling. REVIEW OF SYSTEMS CONSTITUTIONAL: No appetite or weight change. No fever, chills or sweating. No recent infection. HEENT: Ears: No tinnitus or hearing problem. Nose: No nasal discharge or epistaxis. Throat: No sore throat or mouth ulcers. Eyes: No diplopia or visual changes. RESPIRATORY: No shortness of breath. No cough, expectoration or hemoptysis. CARDIOVASCULAR: No chest pain, orthopnea, or paroxysmal nocturnal dyspnea (PND). No edema. No palpitations. GASTROINTESTINAL: No nausea or vomiting. No diarrhea or constipation. No change in bowel movements. No heartburn or swallowing difficulties. No abdominal pain. No jaundice. No hematemesis, melena or rectal bleeding. GENITOURINARY: No hematuria or dysuria. MUSCULOSKELETAL: No pain in the muscles, joints or bones. NEUROLOGICAL: Patient has tingling and numbness in the hands and feet. HEMATOLOGIC/LYMPHATIC: No bleeding or easy bruising. No weakness or fatigue. No enlarged lymph nodes. SKIN: No skin rash or lumps. PSYCHIATRIC: No anxiety or depression. PHYSICAL EXAMINATION GENERAL: Looks stable. Well-developed, well-nourished, and in no acute distress. VITAL SIGNS: Blood pressure 113/70, pulse 82 per minute, respirations 16 per minute, temperature 97.6, pulse ox 92% on room air. HEENT: Head: Atraumatic. No sinus tenderness to palpation. Eyes: No icterus or conjunctivitis. Mouth and Throat: No oral thrush or mucositis. NECK: Supple. No cervical or supraclavicular lymphadenopathy. LUNGS: Clear to auscultation and percussion bilaterally. HEART: Regular rate and rhythm. No gallops, murmurs, clicks or rubs. ABDOMEN: Soft and lax. No tenderness. No hepatosplenomegaly. No masses. EXTREMITIES: No cyanosis, clubbing or edema. LYMPHATICS: No peripheral lymphadenopathy. NEUROLOGICAL: Conscious, alert and oriented times three. No focal motor or sensory deficits. PSYCHIATRIC: Mood and affect appear normal. SKIN: No skin rash, bruise or purpuric eruption. DIAGNOSTIC DATA CBC showed white count 3.6, hemoglobin 10, hematocrit 31.4, platelets 364,000 and MCV 67.9. Chem panel totally normal except chloride 108 and total protein 6.1. PET CT scan done on December 23, 2017 did reveal the achievement of complete remission without any abnormal FDG activity identified with the PET scan. ASSESSMENT 1. 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 PET/CT scan showed only besides the gastric mass, a 7 mm lymph node along the greater curvature of the stomach with SUV 6.22. There are some other lymph nodes along the lesser curvature of the stomach and the kei-celiac artery region 8 mm in size, but without PET activity. Bone marrow aspiration biopsy done September 17, 2017 was negative for lymphomatous involvement. Two-D echocardiogram September 17, 2017 was normal at 60% to 65%. Hepatitis B and C serology came back negative. Patient started chemotherapy with R-CHOP September 30, 2017. He received four cycles, completed on December 04, 2017. His PET scan on December 23, 2017 did reveal the achievement of complete remission. I am planning to refer the patient to the radiation oncologist for consolidation radiation therapy. The patient is asking to remove the port and I am planning to refer her to Dr. Oakley for port removal. I will start surveillance. I will see him again in three months with CBC, chem panel, LDH and uric acid. 2. Chemotherapy-induced anemia. Current hemoglobin is 10, but his MCV is low at 67.9, and I am planning to check iron studies with ferritin to rule out the possibility of iron deficiency anemia PLAN 1. Radiation Therapy consult for consolidation radiation therapy of gastric lymphoma. 2. Referral to Dr. Oakley for port removal. 3. Check iron studies with ferritin. 4. Patient to return in three months with CBC, chem panel, LDH, uric acid. 5. Patient to contact us for any new concerns or complaints. MTDD
[2018-01-07] MEDS ORDERED: FERR-53 PO (12:54)
[2018-01-27] MEDS ORDERED: ONDA8TAB98 PO (10:09)
== END 2018-03-03 ==
LOC: SPU 15:30
PROVIDERS: ATTEND Internal Medicine Hematology
DX: Z51.11 Encounter for antineoplastic chemotherapy (principal); C85.89 Other specified types of non-Hodgkin lymphoma, extranodal and solid organ sites; R06.02 Shortness of breath; E87.6 Hypokalemia; D64.81 Anemia due to antineoplastic chemotherapy
CPT/HCPCS: 36415; 82728; 83540; 83550; 83615; 84100; 84238; 84550; 85025; 85027; 96367; 96375; 96413; 96415; 96417; 99212; J1200; J1453; J1642; J2469; J2930; J7030; J7040; J7050; J9000; J9070; J9310; J9370; 82040; 82247; 82310; 82374; 82435; 82565; 82947; 84075; 84132; 84155; 84295; 84450; 84460; 84520

== ENCOUNTER 2018-01-28 15:26 | Outpatient (RCR) | payer OTHER ==
[2017-10-05 10:07] VITALS: BMI 30.9
--- NOTE | 2018-01-26 20:45 | TOBIN CONSULT ---
EVENT DATE: January 26, 2018 CHIEF COMPLAINT AND REASON FOR REFERRAL Patient is referred for consolidative radiation therapy for gastric lymphoma status post R-CHOP ONCOLOGY HISTORY This is a 57-year-old gentleman who is referred to me by Dr. Madden. The patient presents to the Oncology Clinic essentially after a two-year history of intermittent GI bleeding by his report. He states that his first GI bleed was back in April 2016. He had peptic ulcer disease confirmed by EGD and colonoscopy by Dr. Coates. He took PPIs for four weeks, but unfortunately, developed swelling around the lips and subsequently stopped those medications. He also stated he is intolerant to the H2 blocking agents (PEPCID AC and ZANTAC). The patient had recurring problems in February and March 2017 with repeat scopes. By July 2017, the patient sought consultation with Dr. Pope. Another scope was performed which showed ulcers in the body of the stomach over the angularis. Ulcers were also noted in the fundus of the stomach. He had erosion in the cardia and a 2 cm salmon-colored mucosa extending above the proximal gastric fold. The latter was biopsied and returned B-cell lymphoma containing high-grade and low-grade components. High-grade B-cell lymphoma was noted in 25% of the total area of involvement and low-grade B-cell lymphoma in 75% with a diffuse growth pattern. The low-grade lymphoma was possibly follicular or MALT in origin. Colonoscopy revealed internal hemorrhoids and moderate diverticulosis. PET/CT scan was performed in [place] on September 24, 2017, which demonstrated hyperactive lymph node along the greater curvature of the stomach with an SUV of 6.2. There were additional lymph nodes along the lesser curvature of the stomach in the kei-celiac area. Those areas were PET-negative. The lymph nodes were 8 mm in size. Bone marrow aspiration in August was negative. Patient went on to receive four cycles of R-CHOP between September 30, 2017, and December 04, 2017, with achievement of CR by PET scan and resolution of the lymphadenopathy. That study was performed on December 23, 2017. Patient presently is on iron replacement for mild anemia. He denies any dyspepsia. No B symptoms. He is seen for initial assessment in radiation oncology. PAST MEDICAL HISTORY 1. Gastric lymphoma. 2. Hypertension. 3. GERD. 4. Gastric ulcers. 5. History of atrial fibrillation. PAST SURGICAL HISTORY 1. Prior tonsillectomy. 2. Prior appendectomy. 3. Right foot surgery. FAMILY HISTORY Notable for prostate cancer in his father in his 60s. He is presently in his 80s. He had radiation therapy. SOCIAL HISTORY Patient is with two children. 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 He is a nonsmoker. Rare alcohol use. MEDICATIONS None. ALLERGIES PPIs (oral swelling). COMPREHENSIVE REVIEW OF SYSTEMS Negative with exception of some mild neuropathy in his fingers only. PHYSICAL EXAMINATION GENERAL: Pleasant, 57-year-old male of medium build. KPS 100. VITALS: BP 144/91, pulse is 69, respirations 18, O2 sat 98% on room air. Height 74 inches. Weight 216. HEENT: Unremarkable. NECK: No lymphadenopathy. CHEST: Lungs were clear. No axillary lymphadenopathy. HEART: Heart sounds regular. ABDOMEN: Soft. No gross organomegaly, mass, or tenderness. Normal bowel sounds. EXTREMITIES: No edema or cyanosis. NEUROLOGICAL: Intact. IMPRESSION This is a 57-year-old gentleman with mixed high-grade and low-grade gastric lymphoma, presenting with gastric ulcers which would not heal over a time period of two years. Patient has undergone successful R-CHOP chemotherapy. He is referred for consideration of consolidation radiation therapy at this time. The literature demonstrates that involved field radiation therapy improves progression-free survival and overall survival by 10% to 13%. This was demonstrated in the SWOG-8736 trial. Additional benefit has been noted in other trials, and presently, the standard is to proceed to a radiation dose on the order of 40 to 45 Gy for consolidation. I plan to treat the patient with an intensity modulated radiotherapy treatment program with goal-limiting radiation therapy to the spleen and liver as much as possible. I will cover the entire gastric mucosa as well as the immediately adjacent lymph nodes visible by CT scan. Field reduction planned at 30Gy. I went through acute and late side effects with the patient today, and signed consent has been obtained for treatment. He will be premedicated with Zofran daily to help prevent nausea. This is one of the few cases where nausea can be seen from a radiotherapy course. Nausea can be reduced by lower fractionation scheme of 150 cGy per day, and that daily dose has been selected for this patient. I will also follow his CBC weekly. The baseline blood count will be obtained within the next five days when we complete CT simulation targeting. Outside images will be brought in to fuse with our new CT scan for appropriate treatment urrutia. Patient appeared to be well counseled prior to the visit today. All questions were answered to his satisfaction and signed consent obtained for treatment. We will work around his schedule to allow him to be treated early in the morning or late in the day so he can continue to work throughout the radiation program. [facility]
[~2018-01-28 15:26] MED LIST changes: -ACETAMINOPHEN 325 MG TAB PO PRN; -ALTEPLASE RECOMB 2 MG VIAL IVP PRN; -CYCLOPHOSPHAMIDE IVPB ONE; -DEXTROSE 5%(*) 100 ML BAG 100 ML IVPB PRN; -DOXOrubicin 50 MG/25 ML VIAL IVP ONE; +FERR-53 PO; -FOSAPREPITANT DIM 150 MG/5 ML 150 MG in NS(*) 0.9% 250 ML BAG 245 ML IVPB PRN; -HEPARIN FLSH (PORT) 500 UN/5ML IVP PRN; -LIDOCAINE/SOD BICARB 8.4% SYR ID PRN; -NS 0.9% IVPB ONE; -NS(*) 0.9% 100 ML BAG 100 ML IVPB PRN; -NS(*) 0.9% 500 ML BAG 500 ML IV PRN; +ONDA8TAB98 PO; -PALONOSETRON 0.25 MG/5 ML VIAL IVP PRN; -WATER FOR INJ,STERILE 20 ML IVP PRN; -diphenhydrAMINE 50 MG/ML VIAL IVP PRN; -methylPREDNIS SUCC 125 MG/2ML IVP PRN; -riTUXimab 500 MG/50 ML SDV 900 MG in NS(*) 0.9% 1000 ML BAG 810 ML IV ONE; -vinCRIStine SULF 2 MG/2ML VIAL 2 MG in NS(*) 0.9% 50 ML BAG 50 ML IVP ONE
[2018-01-28 15:54] VITALS: BP 118/89
[2018-01-28 16:13] LABS: PLATELET COUNT, AUTOMATED 233 K/uL (150-450)
== END 2018-04-25 ==
LOC: SPU 15:26
PROVIDERS: ATTEND Radiology Radiation Oncology
DX: Z51.0 Encounter for antineoplastic radiation therapy (principal); C85.89 Other specified types of non-Hodgkin lymphoma, extranodal and solid organ sites; D64.9 Anemia, unspecified; K21.9 Gastro-esophageal reflux disease without esophagitis; I48.91 Unspecified atrial fibrillation; I10 Essential (primary) hypertension
CPT/HCPCS: 36415; 77280; 77290; 77301; 77338; 82040; 82247; 82310; 82374; 82435; 82565; 82947; 83615; 84075; 84132; 84155; 84295; 84450; 84460; 84520; 85025; 99201

== ENCOUNTER → 2018-02-16 | Outpatient (CLI) | payer OTHER ==
[2017-10-05 10:07] VITALS: BMI 30.9
[2018-02-16 07:14] LABS: PLATELET COUNT, AUTOMATED 181 K/uL (150-450)
== END ==
LOC: LAB 06:50
PROVIDERS: ATTEND Radiology Radiation Oncology
DX: C85.93 Non-Hodgkin lymphoma, unspecified, intra-abdominal lymph nodes (principal)
CPT/HCPCS: 36415; 85025

== ENCOUNTER → 2018-02-23 | Outpatient (CLI) | payer OTHER ==
[2017-10-05 10:07] VITALS: BMI 30.9
[2018-02-23 06:58] LABS: PLATELET COUNT, AUTOMATED 188 K/uL (150-450)
== END ==
LOC: LAB 06:46
PROVIDERS: ATTEND Radiology Radiation Oncology
DX: C85.93 Non-Hodgkin lymphoma, unspecified, intra-abdominal lymph nodes (principal)
CPT/HCPCS: 36415; 82040; 82247; 82310; 82374; 82435; 82565; 82947; 83615; 84075; 84132; 84155; 84295; 84450; 84460; 84520; 85025

== ENCOUNTER → 2018-03-04 | Outpatient (CLI) | payer OTHER ==
[2017-10-05 10:07] VITALS: BMI 30.9
[2018-03-04 07:17] LABS: PLATELET COUNT, AUTOMATED 130 K/uL (150-450)
== END ==
LOC: LAB 07:02
PROVIDERS: ATTEND Radiology Radiation Oncology
DX: C85.93 Non-Hodgkin lymphoma, unspecified, intra-abdominal lymph nodes (principal)
CPT/HCPCS: 36415; 82040; 82247; 82310; 82374; 82435; 82565; 82947; 83615; 84075; 84132; 84155; 84295; 84450; 84460; 84520; 85025

== ENCOUNTER → 2018-03-09 | Outpatient (CLI) | payer OTHER ==
[2017-10-05 10:07] VITALS: BMI 30.9
[2018-03-09 07:40] LABS: PLATELET COUNT, AUTOMATED 141 K/uL (150-450)
== END ==
LOC: LAB 07:12
PROVIDERS: ATTEND Radiology Radiation Oncology
DX: C85.93 Non-Hodgkin lymphoma, unspecified, intra-abdominal lymph nodes (principal)
CPT/HCPCS: 36415; 82040; 82247; 82310; 82374; 82435; 82565; 82947; 83615; 84075; 84132; 84155; 84295; 84450; 84460; 84520; 85025

== ENCOUNTER → 2018-03-16 | Outpatient (CLI) | payer OTHER ==
[2017-10-05 10:07] VITALS: BMI 30.9
[2018-03-16 07:08] LABS: PLATELET COUNT, AUTOMATED 153 K/uL (150-450)
== END ==
LOC: LAB 06:56
PROVIDERS: ATTEND Radiology Radiation Oncology
DX: C85.93 Non-Hodgkin lymphoma, unspecified, intra-abdominal lymph nodes (principal)
CPT/HCPCS: 36415; 82040; 82247; 82310; 82374; 82435; 82565; 82947; 83615; 84075; 84132; 84155; 84295; 84450; 84460; 84520; 85025

== ENCOUNTER 2018-03-17 07:30 | Outpatient (RCR) | payer OTHER ==
[2017-10-05 10:07] VITALS: BMI 30.9
--- NOTE | 2018-03-16 14:42 | ONCOLOGY COMPLETION NOTE ---
EVENT DATE: March 16, 2018 DIAGNOSIS Gastric B-cell lymphoma with both high and low-grade elements. Status post EGD with biopsy for workup of recurrent anemia and GI bleeds. Last procedure was performed by Dr. Pope. See cytogenetics on the chart. Lymphoma is associated with distal gastric ulcer and proximal stomach ulcer with prior biopsies of stomach in April 2016, June 2016 and March 2017. TREATMENT COURSE Patient received R-CHOP therapy directed by Dr. Madden for four cycles. He then was referred for external beam radiotherapy consolidation. PET CT scan dated September 24, 2017 demonstrated a 7 mm nodule representing lymph node along the greater curvature with SUV of 6.2. There were also some smaller adjacent lymph nodes at 8 mm and several lymph nodes near the celiac artery. Those films were fused to the radiation images for accurate targeting. TREATMENT DETAILS Date radiation therapy was started: February 08. Date completed. March 16. Dose and technique: Patient was treated with multi-field IMRT. Treatment technique: Delivering 3000 cGy and 20 fractions at 150 cGy/fraction. Care was taken to limit the radiation dose to surrounding organs including spleen, liver and small bowel. Initial field covered the entire stomach as well as the regional lymph nodes which were active on PET. The field was then reduced to the stomach only for an additional eight fractions, completing an additional 1200 cGy at 150 cGy/fraction for a combined dose of 4200 cGy in 28 daily treatments. Tolerance: Excellent. Patient had no evidence of any fatigue, nausea or even change in his appetite. His blood counts have been monitored weekly and are stable. At the end of treatment, his hemoglobin was 15.6. DISPOSITION Patient will follow up with Dr. Madden on April 01. Dr. Madden will decide at that time whether to re-stage the patient with an EGD and/or PET CT scan at 12 weeks. I did not make any specific appointments with this patient but I told him I would be happy to see him after any major studies are performed to help review and/or interpret those findings. Patient is an avid skier and will get back to his normal routine this winter. Staff and I have thoroughly enjoyed our interaction with Mr. Tee and hopefully he will maintain a long and sustained remission going forward. Thank you for the referral and opportunity to participate in Mr. Tee's care. [facility]
== END 2018-05-09 ==
LOC: RAON 07:30
PROVIDERS: ATTEND Radiology Radiation Oncology
DX: Z51.0 Encounter for antineoplastic radiation therapy (principal); C85.93 Non-Hodgkin lymphoma, unspecified, intra-abdominal lymph nodes; K21.9 Gastro-esophageal reflux disease without esophagitis; I48.91 Unspecified atrial fibrillation; I10 Essential (primary) hypertension
CPT/HCPCS: 77290; 77336; 77386

== ENCOUNTER → 2018-03-24 | Outpatient (CLI) | payer OTHER ==
[2017-10-05 10:07] VITALS: BMI 30.9
[2018-03-24 07:20] LABS: PLATELET COUNT, AUTOMATED 163 K/uL (150-450)
== END ==
LOC: LAB 07:03
PROVIDERS: ATTEND Radiology Radiation Oncology
DX: C85.93 Non-Hodgkin lymphoma, unspecified, intra-abdominal lymph nodes (principal)
CPT/HCPCS: 36415; 85025

== ENCOUNTER 2018-04-01 15:00 | Outpatient (RCR) | payer OTHER ==
[2017-10-05 10:07] VITALS: Wt 98.5 kg
[2018-04-01 15:16] VITALS: BP 143/93
--- NOTE | 2018-04-02 03:15 | [facility] ONCOLOGY NOTE ---
EVENT DATE: April 01, 2018 DIAGNOSIS Gastric lymphoma. CHIEF COMPLAINT Patient is here today for followup of his gastric lymphoma. ONCOLOGY HISTORY Patient is a 57-year-old male who presents with daily, at least two times per day, epigastric pain and fullness immediately followed by retrosternal to right- sided pressure followed immediately by sensation that he needs to have a bowel movement. He has mild if any sensation of the need to belch. He takes Pepcid AC and symptoms resolve over 15-30 minutes. He has also intermittent early satiety and postprandial bloating. Denies any dysphagia, dyspepsia, pyrosis or sore throat. He has also perioral swelling with any of the PPIs. He had a history of GI bleed April 2016, and EGD and colonoscopy done by Dr. Coates showed ulcers. Unsure if esophageal or gastric. He had persistent rectal bleeding and required transfusions. He had EGD with cautery. He took PPIs for three to four weeks and he developed again the oral swelling and stopped the treatment. He had recurrent upper GI bleeding February 2017, saw Dr. Coates, and early March 2017 with EGD report demonstrating an ulcer, unsure if gastric or esophageal. Patient saw Dr. Pope, who did an EGD and colonoscopy on August 12, 2017. EGD showed ulcers in the stomach body over the angularis and in the stomach body and in the fundus of the stomach, and in the whole stomach. He had also erosion at the cardia and 1-2 cm salmon-colored mucosa extending above the most proximal gastric fold, but the esophagus appeared normal and the patient had biopsies of all these masses. 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 The B cell lymphoma involving extensively all the fragments of gastric mucosa included in the sample. Consists of high grade B cell lymphoma with germinal center immunophenotype and a proliferation index of 100%. The high grade lymphoma included 25% of the total area involvement, while the low grade B cell lymphoma included 75% with diffuse growth pattern. Differential diagnosis of the low grade lymphoma mainly follicular lymphoma and MALT lymphoma. His colonoscopy showed internal hemorrhoids with moderate diverticulosis of the mid descending colon and sigmoid colon. Patient had a PET CT scan done on September 24, 2017, which showed a small lymph node 7 mm in size along the greater curvature of the stomach with SUV 6.22. There are some other lymph nodes along the lesser curvature of the stomach and the kei-celiac artery area, but they were PET negative and those lymph nodes were 8 mm in size. Bone marrow aspiration biopsy done on September 17, 2017, was negative for lymphomatous involvement. Patient received four courses of R-CHOP between September 30, 2017, through December 04, 2017, with achievement of complete remission by PET scan. HISTORY OF PRESENT ILLNESS Patient is here today for followup of his gastric lymphoma. He is doing really very well. His energy level is very good, and the patient is totally asymptomatic. He denies any B symptoms today. PAST MEDICAL HISTORY 1. Hypertension. 2. GERD. 3. Upper GI bleeding. 4. Gastric ulcer. PAST SURGICAL HISTORY 1. Tonsillectomy and adenoidectomy. 2. Appendectomy. 3. Right foot surgery. FAMILY HISTORY Father had prostate cancer. Paternal grandfather with some sort of cancer, he does not know the type. SOCIAL HISTORY Patient is with two children. 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 He is a never smoker. He drinks rarely. Denies any abuse of illicit drugs. CURRENT MEDICATIONS Pepcid AC p.r.n. for his GI symptoms. ALLERGIES PPIs, which cause oral swelling. REVIEW OF SYSTEMS CONSTITUTIONAL: No appetite or weight change. No fever, chills or sweating. No recent infection. HEENT: Ears: No tinnitus or hearing problem. Nose: No nasal discharge or epistaxis. Throat: No sore throat or mouth ulcers. Eyes: No diplopia or visual changes. RESPIRATORY: No shortness of breath. No cough, expectoration or hemoptysis. CARDIOVASCULAR: No chest pain, orthopnea, or paroxysmal nocturnal dyspnea (PND). No edema. No palpitations. GASTROINTESTINAL: No nausea or vomiting. No diarrhea or constipation. No change in bowel movements. No heartburn or swallowing difficulties. No abdominal pain. No jaundice. No hematemesis, melena or rectal bleeding. GENITOURINARY: No hematuria or dysuria. MUSCULOSKELETAL: No pain in the muscles, joints or bones. NEUROLOGICAL: No tingling or numbness in the hands or feet. No headaches or convulsions. HEMATOLOGIC/LYMPHATIC: No bleeding or easy bruising. No weakness or fatigued. No enlarged lymph nodes. SKIN: No skin rash or lumps. PSYCHIATRIC: No anxiety or depression. PHYSICAL EXAMINATION GENERAL: Looks stable. Well-developed, well-nourished, and in no acute distress. VITAL SIGNS: Blood pressure 143/93, pulse 81 per minute, respirations 16 per minute, temperature 97, pulse oximetry 96% on room air. HEENT: Head: Atraumatic. No sinus tenderness to palpation. Eyes: No icterus or conjunctivitis. Mouth and throat: No oral thrush or mucositis. NECK: Supple. No cervical or supraclavicular lymphadenopathy. LUNGS: Clear to auscultation and percussion bilaterally. HEART: Regular rate and rhythm. No gallops, murmurs, clicks or rubs. ABDOMEN: Soft and lax. No tenderness. No hepatosplenomegaly. No masses. EXTREMITIES: No cyanosis, clubbing or edema. LYMPHATICS: No peripheral lymphadenopathy. NEUROLOGICAL: Conscious, alert and oriented times three. No focal motor or sensory deficits. PSYCHIATRIC: Mood and affect appear normal. SKIN: No skin rash, bruise or purpuric eruption. DIAGNOSTIC DATA CBC showed white count 3.5, hemoglobin 15.8, hematocrit 46.9, platelets 145,000. Chem panel is normal. ASSESSMENT 1. 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 PET/CT scan showed only, besides the gastric mass, a 7 mm lymph node along the greater curvature of the stomach with SUV 6.22. There are some other lymph nodes along the lesser curvature of the stomach and the periceliac artery region, 8 mm in size, but without PET activity. One more aspiration biopsy, September 17, 2017, was negative for lymphomatous involvement. A 2-D echocardiogram on September 17, 2017, was normal at 60% to 65%. Hepatitis B and C serology came back negative. Patient received four cycles of chemotherapy with R-CHOP between 30 September 2017 through 04 December 2017. His PET scan on December 23, 2017, did reveal the achievement of complete remission. He received a consultation with Radiation Therapy, completed on 17 March 2018. He is doing very well currently, and he is in complete remission. I am planning to continue followup. I will see him again in three months with CBC, chem panel, LDH, and uric acid. 2. Chemotherapy-induced anemia due to iron deficiency. Patient currently on iron supplementation. I am planning to continue iron supplement for a total of six months, and I will repeat his iron studies with ferritin with his next visit in three months. PLAN 1. Continue followup. 2. Patient to return in three months with CBC, chem panel, LDH, uric acid, and iron studies with ferritin. 3. Patient to contact us for any new concerns or complaints. [facility]
== END 2018-06-29 ==
LOC: ONC 15:00
PROVIDERS: ATTEND Internal Medicine Hematology
DX: Z51.11 Encounter for antineoplastic chemotherapy (principal); C85.89 Other specified types of non-Hodgkin lymphoma, extranodal and solid organ sites; R06.02 Shortness of breath; E87.6 Hypokalemia; D64.81 Anemia due to antineoplastic chemotherapy
CPT/HCPCS: 99212

== ENCOUNTER → 2018-04-01 | Outpatient (CLI) | payer OTHER ==
[2017-10-05 10:07] VITALS: BMI 30.9
[2018-04-01 07:26] LABS: PLATELET COUNT, AUTOMATED 145 K/uL (150-450)
== END ==
LOC: LAB 07:03
PROVIDERS: ATTEND Internal Medicine Hematology
DX: C88.4 Extranodal marginal zone B-cell lymphoma of mucosa-associated lymphoid tissue [MALT-lymphoma] (principal)
CPT/HCPCS: 36415; 82040; 82247; 82310; 82374; 82435; 82565; 82947; 84075; 84132; 84155; 84295; 84450; 84460; 84520; 85025

== ENCOUNTER 2018-07-15 15:54 | Outpatient (RCR) | payer OTHER ==
[2017-10-05 10:07] VITALS: Wt 101.1 kg
[2018-07-06 16:53] VITALS: BP 133/84
[2018-07-06 17:12] LABS: PLATELET COUNT, AUTOMATED 228 K/uL (150-450)
[2018-07-15 15:58] VITALS: BP 137/88
--- NOTE | 2018-07-15 23:07 | [facility] ONCOLOGY NOTE ---
EVENT DATE: July 15, 2018 DIAGNOSIS Gastric lymphoma. CHIEF COMPLAINT Patient is here today for followup of his gastric lymphoma. ONCOLOGY HISTORY Patient is a 58-year-old male who presents with daily, at least two times per day epigastric pain and fullness, immediately followed by retrosternal to right- sided pressure, followed immediately by sensation that he needs to have a bowel movement. He has mild, if any, sensation of the need to belch. He takes Pepcid AC, and symptoms resolve over 15 to 30 minutes. He has also intermittent early satiety and postprandial bloating. Denies any dysphagia, dyspepsia, pyrosis, or sore throat. He has also perioral swelling with any of the PPIs. He had a history of GI bleed April 2016, and EGD and colonoscopy done by Dr. Coates showed ulcers, unsure if esophageal or gastric. He had persistent rectal bleeding and required transfusions. He had EGD with cautery. He took PPIs for three to four weeks, and he developed again the oral swelling and stopped the treatment. He had recurrent upper GI bleeding February 2017, saw Dr. Coates in early March 2017 with EGD report demonstrating an ulcer, unsure if gastric or esophageal. Patient saw Dr. Pope, who did an EGD and colonoscopy on August 12, 2017. EGD showed ulcers in the stomach body over the angularis and in the stomach body and in the fundus of the stomach and in the whole stomach. He had also erosion at the cardia and 1 to 2 cm salmon-colored mucosa extending above the most proximal gastric fold, but the esophagus appeared normal, and the patient had biopsies of all these masses. The biopsy came back positive for B-cell lymphoma with high-grade and low-grade components, the B-cell lymphoma involving extensively all the fragments of gastric mucosa included in the sample, consists of high grade B-cell lymphoma with germinal center immunophenotype and a proliferation index of 100%. The high-grade lymphoma included 25% of the total area of involvement, while the low-grade B-cell lymphoma included 75% with diffuse growth pattern. Differential diagnosis of the low-grade lymphoma was mainly follicular lymphoma and MALT lymphoma. His colonoscopy showed internal hemorrhoids with moderate diverticulosis of the mid descending colon and sigmoid colon. Patient had a PET/CT scan done on September 24, 2017, which showed a small lymph node, 7 mm in size along the greater curvature of the stomach with SUV 6.22. There are some other lymph nodes along the lesser curvature of the stomach and the kei-celiac artery area, but they were PET negative, and those lymph nodes were 8 mm in size. Bone marrow aspiration biopsy done on September 17, 2017, was negative for lymphomatous involvement. Patient received four courses of R-CHOP between September 30, 2017, through December 04, 2017, with achievement of complete remission by PET scan. HISTORY OF PRESENT ILLNESS Patient is here today for followup of his gastric lymphoma. He is doing very well currently. He is totally asymptomatic and denies any B symptoms. PAST MEDICAL HISTORY 1. Hypertension. 2. GERD. 3. Upper GI bleeding. 4. Gastric ulcer. PAST SURGICAL HISTORY 1. Tonsillectomy and adenoidectomy. 2. Appendectomy. 3. Right foot surgery. FAMILY HISTORY Father had prostate cancer. Paternal grandfather with some sort of cancer, he does not know the type. SOCIAL HISTORY Patient is with two children. 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 He is a never smoker. He drinks rarely. Denies any abuse of illicit drugs. CURRENT MEDICATIONS Pepcid AC p.r.n. for his GI symptoms. ALLERGIES PPIs, which cause oral swelling. REVIEW OF SYSTEMS CONSTITUTIONAL: No appetite or weight change. No fever, chills, or sweating. No recent infection. HEENT: Ears: No tinnitus or hearing problem. Nose: No nasal discharge or epistaxis. Throat: No sore throat or mouth ulcers. Eyes: No diplopia or visual changes. RESPIRATORY: No shortness of breath. No cough, expectoration, or hemoptysis. CARDIOVASCULAR: No chest pain, orthopnea, or paroxysmal nocturnal dyspnea (PND). No edema. No palpitations. GASTROINTESTINAL: No nausea or vomiting. No diarrhea or constipation. No change in bowel movements. No heartburn or swallowing difficulties. No abdominal pain. No jaundice. No hematemesis, melena, or rectal bleeding. GENITOURINARY: No hematuria or dysuria. MUSCULOSKELETAL: No pain in the muscles, joints, or bones. NEUROLOGICAL: No tingling or numbness in the hands or feet. No headaches or convulsions. HEMATOLOGIC/LYMPHATIC: No bleeding or easy bruising. No weakness or fatigue. No enlarged lymph nodes. SKIN: No skin rash or lumps. PSYCHIATRIC: No anxiety or depression. PHYSICAL EXAMINATION GENERAL: Looks stable. Well developed, well nourished, and in no acute distress. VITAL SIGNS: Blood pressure 137/88, pulse 76 per minute, respirations 16 per minute, temperature 97.8, pulse ox 98% on room air. HEENT: Head: Atraumatic. No sinus tenderness to palpation. Eyes: No icterus or conjunctivitis. Mouth and Throat: No oral thrush or mucositis. NECK: Supple. No cervical or supraclavicular lymphadenopathy. LUNGS: Clear to auscultation and percussion bilaterally. HEART: Regular rate and rhythm. No gallops, murmurs, clicks, or rubs. ABDOMEN: Soft and lax. No tenderness. No hepatosplenomegaly. No masses. EXTREMITIES: No cyanosis, clubbing, or edema. LYMPHATICS: No peripheral lymphadenopathy. NEUROLOGICAL: Conscious, alert, and oriented times three. No focal motor or sensory deficits. PSYCHIATRIC: Mood and affect appear normal. SKIN: No skin rash, bruise, or purpuric eruption. DIAGNOSTIC DATA CBC showed white count 5.8, hemoglobin 16.4, hematocrit 47.8, platelets 228,000. Chem panel is totally normal. Serum iron is 45, TIBC 285, iron saturation 15.8%, and ferritin 42. ASSESSMENT 1. 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 PET/CT scan showed only, besides the gastric mass, a 7 mm lymph node along the greater curvature of the stomach with SUV 6.22. There are some other lymph nodes along the lesser curvature of the stomach and the kei-celiac artery region, 8 mm in size, but without PET activity. Bone marrow aspiration biopsy done on the August was negative for lymphomatous involvement. A 2-D echocardiogram on September 17, 2017, was normal at 60% to 65%. Hepatitis B and C serologies came back negative. Patient received four cycles of chemotherapy with R-CHOP between September 30, 2017, through December 04, 2017. His PET scan on the November did reveal the achievement of complete remission. Patient received consolidation radiation therapy, completed on the February. He is doing fine currently. Denies any B symptoms. I am planning to continue followup. I will see him again in three months with CBC, chemistry panel, LDH, and uric acid. 2. Anemia due to iron deficiency. His current hemoglobin is 16.4, and his iron studies are totally normal. No further investigation required. PLAN 1. Continue followup. 2. Patient to return in three months with CBC, chem panel, LDH, uric acid. 3. Patient to contact us for any new concerns or complaints. TISHA
== END 2018-09-03 08:59 | disposition home or self-care (01) ==
LOC: ONC 15:54
PROVIDERS: ATTEND Internal Medicine Hematology
DX: C88.4 Extranodal marginal zone B-cell lymphoma of mucosa-associated lymphoid tissue [MALT-lymphoma] (principal); D50.9 Iron deficiency anemia, unspecified
CPT/HCPCS: 36415; 82040; 82247; 82310; 82374; 82435; 82565; 82728; 82947; 83540; 83550; 83615; 84075; 84132; 84155; 84295; 84450; 84460; 84520; 84550; 85025; 99212